=== PATIENT | female | born 1990 | race Hispanic/Latino ===

== ENCOUNTER 2022-05-18 12:36 | Emergency (ER) | payer MEDICAID ==
[~2022-05-18] VITALS: Ht 147.3 cm; Wt 58.1 kg
[~2022-05-18 12:36] MED LIST: METF-444 PO; METF-446 PO; METO10TA41 PO; ONDA-105 PO; PREN-154 PO
[2022-05-18 12:48] VITALS: BP 125/72
[2022-05-18 13:34] LABS: BASOPHILS % (AUTO) 0.5 % (0.0-5.0); EOSINOPHILS % (AUTO) 0.7 % (0.0-8.0); HEMATOCRIT 27.6 % (36-48); LYMPHOCYTES % (AUTO) 25.7 % (21.0-51.0); MEAN CORPUSCULAR HEMOGLOBIN 29.2 pg (27.0-33.0); MEAN CORPUSCULAR HGB CONC 34.1 g/dL (32.0-36.0); MEAN CORPUSCULAR VOLUME 85.7 fL (79-99); MONOCYTES % (AUTO) 5.5 % (3.0-13.0); NEUTROPHILS % (AUTO) 67.2 % (40.0-77.0); PLATELET COUNT (AUTO) 372 K/uL (130-400); RED BLOOD CELL COUNT(AUTO) 3.22 MIL/uL (4.00-5.50); RED CELL DISTRIBUTION WIDTH 13.8 % (11.0-15.5); WHITE BLOOD COUNT (AUTO) 10.1 K/uL (4.8-10.8)
[2022-05-18 14:04] LABS: CREATININE 1.9 mg/dL (0.5-1.5); POTASSIUM 4.7 mmol/L (3.5-5.1)
[2022-05-18 14:38] LABS: ALBUMIN 2.6 g/dL (3.5-5.0); TOTAL PROTEIN, SERUM 7.7 g/dL (6.0-8.3)
== END 2022-05-18 16:53 | disposition home or self-care (01) ==
LOC: EDH 12:36
DX: Z34.92 Encounter for supervision of normal pregnancy, unspecified, second trimester (principal); Z3A.19 19 weeks gestation of pregnancy; E11.9 Type 2 diabetes mellitus without complications; Z79.84 Long term (current) use of oral hypoglycemic drugs; Z79.899 Other long term (current) drug therapy; Z90.49 Acquired absence of other specified parts of digestive tract
CPT/HCPCS: 36415; 80053; 84702; 85025

== ENCOUNTER 2024-01-17 04:35 | Emergency (ER) | payer MEDICAID ==
[~2024-01-17 04:35] MED LIST changes: -METF-444 PO; -METF-446 PO; -METO10TA41 PO; -ONDA-105 PO; +ONDA-243 PO; -PREN-154 PO
[2024-01-17] MEDS: LACTATED RINGERS 1000ML 1,000 ML IV ONE (04:50)
[2024-01-17] MEDS: morPHINE 4 MG SYG IVP ONE (04:50)
[2024-01-17] MEDS: ONDANSETRON 4MG INJ IVP ONE (04:50)
[2024-01-17] MEDS: LIDOCAINE HCL 2% VISCOUS 15 ML UDCUP PO ONE (04:51)
[2024-01-17] MEDS: DICYCLOMINE HCL 10 MG/5 ML ML PO ONE (04:51)
[2024-01-17] MEDS: MAG/ALUM/SIMETH 30 ML UDCUP PO ONE (04:51)
[2024-01-17 04:55] LABS: BASOPHILS # (AUTO) 0.06 K/uL (0.00-0.20); BASOPHILS % (AUTO) 0.6 % (0.0-5.0); EOSINOPHILS % (AUTO) 3.2 % (0.0-8.0); HEMATOCRIT 32.9 % (36-48); IMMATURE GRANULOCYTE ABSOLUTE 0.02 K/uL (0-1); LYMPHOCYTES # (AUTO) 1.5 K/uL (1.0-4.8); LYMPHOCYTES % (AUTO) 16.5 % (21.0-51.0); MEAN CORPUSCULAR HEMOGLOBIN 28.6 pg (27.0-33.0); MEAN CORPUSCULAR HGB CONC 34.7 g/dL (32.0-36.0); MEAN CORPUSCULAR VOLUME 82.5 fL (79-99); MONOCYTES # (AUTO) 0.5 K/uL (0.1-1.0); MONOCYTES % (AUTO) 4.8 % (3.0-13.0); NEUTROPHILS % (AUTO) 74.7 % (40.0-77.0); PLATELET COUNT (AUTO) 282 K/uL (130-400); RED BLOOD CELL COUNT(AUTO) 3.99 MIL/uL (4.00-5.50); RED CELL DISTRIBUTION WIDTH 12.4 % (11.0-15.5); WHITE BLOOD COUNT (AUTO) 9.3 K/uL (4.8-10.8)
[2024-01-17 05:12] LABS: CREATININE 2.7 mg/dL (0.5-1.0); POTASSIUM 4.5 mmol/L (3.5-5.1)
[2024-01-17 05:16] LABS: ALBUMIN 3.9 g/dL (3.5-5.0); BILIRUBIN,TOTAL 0.4 mg/dL (0.2-1.0); TOTAL PROTEIN, SERUM 7.9 g/dL (6.0-8.3)
[2024-01-17] MEDS ORDERED: MEPERIDINE-PF 50 MG/ML SYG SQ PRN (05:30)
[2024-01-17] MEDS ORDERED: LACTATED RINGERS 1000ML 1,000 ML IV SCH (05:30)
[2024-01-17] MEDS ORDERED: PROMETHAZINE HCL 25 MG/ML 1ML AMPULE IM PRN (05:30)
[2024-01-17] MEDS ORDERED: MEPERIDINE-PF 75 MG/ML SYG IM PRN (05:30)
[2024-01-17] MEDS: PANTOPRAZOLE 40 MG/VIAL IVP ONE (06:06)
[2024-01-17] MEDS: PANTOPRAZOLE 40 MG/VIAL ONE (06:09)
[2024-01-17] MEDS: PROMETHAZINE HCL 25 MG/ML 1ML AMPULE IM ONE (06:31)
[2024-01-17] MEDS: metoCLOPRAmide 10 MG/2 ML VIAL IVP ONE (08:13)
[2024-01-17 08:30] LABS: APPEARANCE,URINE CLEAR (CLEAR); BILIRUBIN,URINE NEGATIVE (NEGATIVE); COLOR,URINE COLORLESS (YELLOW); GLUCOSE, URINE (UA) NEGATIVE (NEGATIVE); KETONES,URINE NEGATIVE (NEGATIVE); LEUKOCYTE ESTERASE ,URINE NEGATIVE Leu/uL (NEGATIVE); NITRATE,URINE NEGATIVE (NEGATIVE); OCCULT BLOOD,URINE SMALL (NEGATIVE); PROTEIN,URINE 300 mg/dL (NEGATIVE); UROBILINOGEN,URINE 0.2 mg/dL (0.2-1.0)
[2024-01-17 08:37] LABS: ADD UA MICROSCOPIC YES
[2024-01-17 08:38] LABS: AMPHET/METH SCREEN,URINE NEGATIVE (NEGATIVE); BARBITURATE SCREEN, URINE NEGATIVE (NEGATIVE); BENZODIAZEPINES SCREEN,URINE NEGATIVE (NEGATIVE); CANNABINOID SCREEN,URINE POSITIVE (NEGATIVE); COCAINE SCREEN,URINE NEGATIVE (NEGATIVE); OPIATE SCREEN,URINE NEGATIVE (NEGATIVE); PHENCYCLIDINE SCREEN,URINE NEGATIVE (NEGATIVE)
[2024-01-17 08:39] LABS: BACTERIA,URINE RARE /HPF (None Seen); MUCUS,URINE RARE LPF (None Seen); SQUAMOUS EPITHELIAL CELL,UR RARE /HPF (0-2)
[2024-01-17] MEDS ORDERED: ONDA22I PO (09:54)
[2024-01-17] MEDS ORDERED: PANT20TA PO (09:54)
[2024-01-17 10:05] VITALS: BP 114/72; PULSE 88; RESP 19; TEMP 98.2; O2SAT 99
== END 2024-01-17 10:06 | disposition home or self-care (01) ==
LOC: EDH 04:35
DX: R11.2 Nausea with vomiting, unspecified (principal); R19.7 Diarrhea, unspecified; R10.9 Unspecified abdominal pain; R42 Dizziness and giddiness; I12.9 Hypertensive chronic kidney disease with stage 1 through stage 4 chronic kidney disease, or unspecified chronic kidney disease; E11.22 Type 2 diabetes mellitus with diabetic chronic kidney disease; N18.9 Chronic kidney disease, unspecified; E11.43 Type 2 diabetes mellitus with diabetic autonomic (poly)neuropathy; K31.84 Gastroparesis; G89.4 Chronic pain syndrome; E86.0 Dehydration
CPT/HCPCS: 99285; 96374; 96375; 96361; 71045; 82150; 84484; 80053; 80305; 83690; 85025; 87086; 81025; 36415; 96372; 81001; J2550; J2405; J2270 ×2; J2470; J2765

== ENCOUNTER 2024-01-17 16:45 | Emergency (ER) | payer MEDICAID ==
[~2024-01-17] VITALS: Ht 144.8 cm; Wt 55.3 kg
[~2024-01-17 16:45] MED LIST changes: +ONDA22I PO; +PANT20TA PO
[2024-01-17 18:01] LABS: BASOPHILS # (AUTO) 0.04 K/uL (0.00-0.20); BASOPHILS % (AUTO) 0.6 % (0.0-5.0); EOSINOPHILS # (AUTO) 0.25 K/uL (0.00-0.70); EOSINOPHILS % (AUTO) 3.6 % (0.0-8.0); HEMATOCRIT 32.1 % (36-48); IMMATURE GRANULOCYTE ABSOLUTE 0.02 K/uL (0-1); LYMPHOCYTES # (AUTO) 1.4 K/uL (1.0-4.8); MEAN CORPUSCULAR HEMOGLOBIN 28.7 pg (27.0-33.0); MEAN CORPUSCULAR HGB CONC 34.3 g/dL (32.0-36.0); MEAN CORPUSCULAR VOLUME 83.8 fL (79-99); MONOCYTES # (AUTO) 0.4 K/uL (0.1-1.0); MONOCYTES % (AUTO) 5.7 % (3.0-13.0); NEUTROPHILS # (AUTO) 4.9 K/uL (1.8-7.7); NEUTROPHILS % (AUTO) 69.8 % (40.0-77.0); PLATELET COUNT (AUTO) 273 K/uL (130-400); RED BLOOD CELL COUNT(AUTO) 3.83 MIL/uL (4.00-5.50); RED CELL DISTRIBUTION WIDTH 12.7 % (11.0-15.5)
[2024-01-17] MEDS: ONDANSETRON 4MG INJ IVP ONE (18:12)
[2024-01-17] MEDS: morPHINE 2 MG SYG IVP ONE (18:12)
[2024-01-17] MEDS: 0.9%NACL 1000ML 1,000 ML IV ONE (18:13)
[2024-01-17 18:14] LABS: CREATININE 2.8 mg/dL (0.5-1.0); POTASSIUM 4.8 mmol/L (3.5-5.1)
[2024-01-17 18:54] VITALS: BP 147/89; PULSE 94; RESP 18; TEMP 98.3; O2SAT 99
== END 2024-01-17 18:55 | disposition home or self-care (01) ==
LOC: EDH 16:45
DX: A08.4 Viral intestinal infection, unspecified (principal); F12.10 Cannabis abuse, uncomplicated; G89.4 Chronic pain syndrome; E11.22 Type 2 diabetes mellitus with diabetic chronic kidney disease; N18.9 Chronic kidney disease, unspecified; R11.2 Nausea with vomiting, unspecified; E11.43 Type 2 diabetes mellitus with diabetic autonomic (poly)neuropathy; Z79.899 Other long term (current) drug therapy
CPT/HCPCS: 99284; 96374; 96361; 96375; 80048; 85025; 36415; J2270; J7030; J2405

== ENCOUNTER 2024-03-05 16:35 | Emergency (ER) | payer MEDICAID ==
[~2024-03-05] VITALS: Ht 152.4 cm; Wt 54.4 kg
[2024-03-05 17:02] LABS: BASOPHILS # (AUTO) 0.08 K/uL (0.00-0.20); BASOPHILS % (AUTO) 0.6 % (0.0-5.0); EOSINOPHILS # (AUTO) 0.03 K/uL (0.00-0.70); EOSINOPHILS % (AUTO) 0.2 % (0.0-8.0); HEMATOCRIT 34.6 % (36-48); IMMATURE GRANULOCYTE ABSOLUTE 0.03 K/uL (0-1); LYMPHOCYTES # (AUTO) 2.1 K/uL (1.0-4.8); LYMPHOCYTES % (AUTO) 15.3 % (21.0-51.0); MEAN CORPUSCULAR HEMOGLOBIN 28.8 pg (27.0-33.0); MEAN CORPUSCULAR VOLUME 82.4 fL (79-99); MONOCYTES # (AUTO) 0.6 K/uL (0.1-1.0); MONOCYTES % (AUTO) 4.3 % (3.0-13.0); NEUTROPHILS # (AUTO) 10.9 K/uL (1.8-7.7); NEUTROPHILS % (AUTO) 79.4 % (40.0-77.0); PLATELET COUNT (AUTO) 403 K/uL (130-400); RED CELL DISTRIBUTION WIDTH 12.5 % (11.0-15.5); WHITE BLOOD COUNT (AUTO) 13.7 K/uL (4.8-10.8)
[2024-03-05 17:10] LABS: CREATININE 3.2 mg/dL (0.5-1.0); POTASSIUM 4.3 mmol/L (3.5-5.1)
[2024-03-05] MEDS: ondanSETRON 4MG INJ IVP STA (17:33)
[2024-03-05] MEDS: morPHINE 2 MG SYG IVP STA ×2 (17:33→20:57)
[2024-03-05] MEDS: PANTOPrazole 40 MG/VIAL IVP ONE (17:34)
[2024-03-05] MEDS: 0.9%NACL 1000ML 1,000 ML IV STA (18:27)
--- NOTE | 2024-03-05 18:56 | HMCIMG ---
CT ABDOMEN/PELVIS W/O CONTRAST HISTORY: Nausea and vomiting COMPARISON: 08/27/2023 TECHNIQUE: Multiple sequential axial images of the abdomen and pelvis were obtained from the dome of the diaphragm through symphysis pubis. Patient was not given contrast through intravenous route. Oral contrast was not given. FINDINGS: No pleural effusion is seen bilaterally. There is no evidence of parenchymal disease or pulmonary nodule of the visualized lower lungs. Degenerative changes of the thoracolumbar spine are present. The heart is not enlarged. Postcholecystectomy changes are seen. The liver, spleen, adrenal glands and pancreas are unremarkable. There is no evidence of hydronephrosis bilaterally. 3 mm left renal pelvic stone is seen. Subcentimeter renal cysts are seen. Fecal material is seen in the colon. There are normal size retroperitoneal and mesenteric lymph nodes. No ascites is seen. No CT evidence of acute appendicitis is seen. Clinical correlation is recommended. Pelvic sidewalls are symmetric bilaterally. Bladder is poorly distended. IMPRESSION: 1. 3 mm left renal pelvic stone. No hydronephrosis is seen. No ascites. CT was performed with one or more following dose reduction techniques: automated exposure control, adjustment of the mA and kv according to patient's size, or use of a iterative reconstruction technique.
--- NOTE | 2024-03-05 19:20 | ERN ---
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 Denies having any fever, cough, chest pain, or headache. Unknown her LMP. Allergies: Coded Allergies: No Known Allergies (Unverified Allergy, Unknown, 04/24/22) Home Meds Active Scripts Ondansetron (Ondansetron Odt) 4 Mg Tab.rapdis, 4 MG PO Q6HPRN PRN for nausea, #16 TAB 0 Refills Prov:TONIE KAHN NP 03/05/24 Pantoprazole Sodium (Protonix) 20 Mg Tablet.dr, 20 MG PO DAILY for 7 Days, #7 TAB Prov:ANASTACIO ANDERS MD 01/17/24 Ondansetron HCl (Zofran) 4 Mg/2 Ml Inj, 4 MG PO BID for Nausea, vomiting for 7 Days, #14 ML Prov:ANASTACIO ANDERS MD 01/17/24 Ondansetron (Ondansetron Odt) 4 Mg Tab.rapdis, 4 MG PO Q6HPRN for nausea, #15 TAB Prov:BHAVYA VILLAR MD 12/25/23 Past Medical History Past Medical History: Diabetes-Type II, Other Additional Past Medical Hx: Guillain [place], Surgical History: Cholecystectomy, None, Surgical History Other: CATARACT SX LEFT EYE 12/24/23 Family History: Negative Social History: Negative History: Not Applicable : 4 Para: 2 Aborts: 2 Review of System Dictation Constitutional: Negative for fever,chills, and weight loss Eyes: Negative for injury, pain,redness, and discharge ENT: Negative for injury,pain or swelling Cardiovascular: Negative for chest pain, palpitations, and edema Respiratory: Negative for shortness of breath, cough, and wheezing, Abdomen/GI: Complaining for abdominal pain, nausea, vomiting, diarrhea, and no constipation Back: Negative for injury and pain : Negative for injury, bleeding and discharge MS/Extremity: Negative for injury and deformity Skin: Negative for rash, and discoloration Neuro: Negative for headache, weakness, numbness, tingling, and seizure Psych: Negative for suicide ideation, homicidal ideation, and hallucinations Review of Systems: was completed Initial Vital Sign VS Vital Signs Date Time Temp Pulse Resp B/P (MAP) Pulse Ox O2 Delivery O2 Flow Rate FiO2 03/05/24 16:38 98.2 96 18 143/82 98 03/05/24 16:58 Room Air* 0 21 Physical Exam Dictation General: awake, alert, NAD Head/Face: Normocephalic, atraumatic Eyes: PERRL, EOMI, vision at baseline ENT: oral cavity clear, TMs clear, no signs of infection Neck: Trachea midline, supple, no nuchal rigidity Cardiovascular: RRR, normal S1/S2, No MRGs, no JVD Respiratory: CTAB, no respiratory distress, No rales or wheezes Abdomen: Soft, non-tender, non-distended, normal bowel sounds, no guarding or rebound. 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 Denies having any fever, cough, chest pain, or headache. Unknown her LMP. CBC shows mild leukocytosis of 13, no anemia, thrombocythemia. Chemistry shows mild elevation he had gotten a 3.2, however they seem to be patient's baseline based on previous visit. Hyperglycemia to 212. Anion and gap is 13, low suspicion for DKA. CT scan of the abdomen shows 3 mm left renal pelvic stone. Discussed findings with patient. Patient states she does not want to go home, educated that these are all chronic findings since she is to follow up outpatient. ER MD went to assess patient, patient is being route and cussing at ER MD. states that yesterday she went to [facility] where they gave her Dilaudid for the pain. Educated patient more than likely her symptoms are related to her gastroparesis. Educated to follow up with her PCP in 1-2 days and return to the ER symptoms worsen. Differential diagnosis: Gastroparesis, gastroenteritis, Rationale: Tests considered and ordered secondary to shared decision making include: Previous outside records reviewed: Old ER visits. Risk of complication and/or morbidity or mortality of patient management: None Medications-Per medication reconciliation Need for hospitalization: Patient does not meet criteria for hospitalization. Need for emergency major/minor surgery: No There are no social concerns with this patient. Prescription drug management Prescriptions will include symptomatic care Patient's prior external medical records from other ER visits were reviewed by me as indicated. Prior testing and results from previous visits were reviewed. Prior tests were taken into account with medical decision making and resource utilization, independent historian/historians were used to obtain complete medical history. I independently interpreted the test that were performed, results were reviewed by me and considered findings on radiology if ordered. Medical management and examination interpretation discussions were had by me with other qualified healthcare professionals as indicated for the patient's care. DX & DISP Disposition: Discharge Departure Impression: Primary Impression: Acute vomiting Additional Impression: Chronic kidney disease Condition: Stable Scripts Ondansetron (Ondansetron Odt) 4 Mg Tab.rapdis 4 MG PO Q6HPRN PRN for nausea, #16 TAB 0 Refills Prov: TONIE KAHN NP 03/05/24 Additional Instructions: Please follow up with your PCP. Return to the ER symptoms worsen. Referrals: KENY FOLEY (PCP) Time of Disposition: 20:15 I have reviewed the case, and I agree with, Diagnosis and Plan I performed this substantive portion of this visit. I have reviewed and personally made and approve the management plan that is documented in the note by myself or the RAJAT. I acknowledge full responsibility for the patient's management plan. TONIE KAHN NP Mar 05, 2024 19:20 KOMAL SUAREZ MD Mar 15, 2024 10:55
[2024-03-05] MEDS: PROMETHAZINE HCL 6.25 MG/5 ML PO SCH (19:50)
[2024-03-05 19:59] VITALS: BP 115/66; PULSE 109; RESP 18; TEMP 98.5; O2SAT 99
[2024-03-05] MEDS ORDERED: ONDA-243 PO (20:15)
== END 2024-03-05 21:10 | disposition home or self-care (01) ==
LOC: EDH 16:35
DX: E11.22 Type 2 diabetes mellitus with diabetic chronic kidney disease (principal); N18.9 Chronic kidney disease, unspecified; R10.2 Pelvic and perineal pain; Z79.899 Other long term (current) drug therapy; Z90.49 Acquired absence of other specified parts of digestive tract; Z98.890 Other specified postprocedural states
CPT/HCPCS: 99285; 74176; 96374; 96375; 96361; 84484; 80048; 84702; 85025; 36415; 96376; J2270 ×2; J7030; J2405; J2470; Q0169

== ENCOUNTER 2024-04-20 07:42 | Emergency (ER) | payer MEDICAID ==
[~2024-04-20] VITALS: Ht 149.9 cm; Wt 57.2 kg
[~2024-04-20 07:42] MED LIST changes: +FINE10TA PO; +METO5 PO; -ONDA22I PO; -PANT20TA PO
--- NOTE | 2024-04-20 08:24 | EKG ---
[facility] Test Date: 2024-04-20 Test Time: 08:22:37 Pat Name: FRANDY HODGE Department: ED Room: Gender: F Manager Rental: 1378 : 1990 Requested By: DUC FAULKNER Order Number: [id number] Reading MD: Pedro Luis Marc Measurements Intervals [place] Rate: 93 P: 69 [place]: 130 QRS: 26 QRSD: 92 T: 126 QT: 356 QTc: 444 Interpretive Statements Sinus rhythm Nonspecific T abnormalities, lateral leads Compared to ECG 04/18/2024 10:03:47 No significant changes Electronically Signed On 04-20-2024 21:09:06 FINISH FILER by Pedro Luis Marc Please click the below link to view image of tracing.
--- NOTE | 2024-04-20 08:29 | ERN ---
General Chief Complaint: Abdominal Pain Stated Complaint: ABDOMINAL PAIN Time Seen by MD: 07:54 Source: patient History of Present Illness Initial Comments Patient is a 33-year-old female coming in to be evaluated for multiple complaints. Patient states he has a history of Guillain-[place] and presents frequently with the abdominal discomfort. She states that the only thing in the helps her with her nauseousness is Phenergan. Patient also states that she has been having generalized abdominal and muscle pain. No fever or chills. Allergies: Coded Allergies: No Known Allergies (Unverified Allergy, Unknown, 04/24/22) Home Meds Active Scripts Ondansetron (Ondansetron Odt) 4 Mg Tab.rapdis, 4 MG PO Q6HPRN PRN for nausea, #16 TAB 0 Refills Prov:TONIE KAHN NP 03/05/24 Reported Medications Finerenone (Kerendia) 10 Mg Tablet, 1 TAB PO DAILY for 30 Days, #30 TAB 0 Refills 04/18/24 Metoclopramide HCl (Reglan) 5 Mg Tab, 5 MG PO BIDAC, TAB 04/18/24 Discontinued Scripts Pantoprazole Sodium (Protonix) 20 Mg Tablet.dr, 20 MG PO DAILY for 7 Days, #7 TAB Prov:ANASTACIO ANDERS MD 01/17/24 Ondansetron HCl (Zofran) 4 Mg/2 Ml Inj, 4 MG PO BID for Nausea, vomiting for 7 Days, #14 ML Prov:ANASTACIO ANDERS MD 01/17/24 Ondansetron (Ondansetron Odt) 4 Mg Tab.rapdis, 4 MG PO Q6HPRN for nausea, #15 TAB Prov:BHAVYA VILLAR MD 12/25/23 Past Medical History Past Medical History: Diabetes-Type II, Other Medical History Other: GASTROPARESIS, GUIELLEN BARRE, CATARAC Past Surgical History: Tonsillectomy, Cholecystectomy, Surgical History Other: CATARAC SURGERY Family History Family History: Negative Social History Social History: Negative Female( History) History: Not Applicable : 4 Para: 2 Aborts: 2 ROS Dictation CONSTITUTIONAL: No chills, no fever, no weakness, no diaphoresis, no malaise. HEAD/FACE: No signs of trauma. EENT: No eye pain, no blurred vision, no tearing, no double vision, no ear pain, no ear discharge, no nose pain, no nasal congestion, no throat pain, no throat swelling, no mouth pain. RESPIRATORY: No cough, no orthopnea, no SOB, no stridor, no wheezing. CARDIOVASCULAR: No chest pain, no edema, no palpitations, no syncope. GASTROINTESTINAL/ABDOMINAL: No abdominal pain, no constipation, no diarrhea, nausea, vomiting. GENITOURINARY: No abnormal discharge, no dysuria, no frequent urination, no hematuria. No complaints of pain in the genitals. MUSCULOSKELETAL: No back pain, no gout, no joint pain, no joint swelling, no muscle pain, no muscle stiffness, no neck pain. INTEGUMENTARY: No change in color, no change in hair/nails, no dryness, no lesion, no lumps, no rash. NEUROLOGICAL/PSYCH: No anxiety, not depressed, no emotional problem, no headache, no numbness, no pre-existing deficit, no history of seizures, no tremors, no weakness. HEMATOLOGIC/LYMPHATIC: Not anemic, no history of blood clots, no apparent bleeding, no bruising, glands not swollen. All Systems Negative, Except as Noted. Physical Exam Physical Exam Dictation VITAL SIGNS: Reviewed. GENERAL APPEARANCE: Alert, oriented x3, no acute distress, obese. HEAD AND FACE: Non-traumatic. EYES: PERRL, pink conjunctivas, eyelid no trauma, anterior chamber clear. EARS: Pinnas intact and no signs of trauma or erythema. Ear canals clear and no discharge. TMs no erythema. NOSE: No discharge, no bleeding. OROPHARYNX: Mouth normal, teeth no caries, tongue pink. Pharynx clear, no erythema. Tonsils no exudates, no abscesses noted. Mucous membrane moist. NECK: Supple, non-tender, no thyromegaly, no masses, no JVD, no bruits. BREAST: Deferred. CHEST: No tenderness, no crepitus, no paradoxical movement, no retractions. LUNGS: Clear, well-ventilated, symmetric, no rales, no wheezing, no rhonchi, no stridor, good breath sounds bilaterally. HEART: Regular rate, regular rhythm, no murmur, no gallops. VASCULAR: No peripheral edema. ABDOMEN: Soft, positive bowel sounds, nondistended, no guarding, nontender, no rebound, no masses no hepatomegaly, no splenomegaly, no Reece's sign, no hernias. RECTAL: Deferred. GENITAL: Deferred. NEUROLOGICAL: Normal speech, gross motor function intact, gross sensory function intact. MUSCULOSKELETAL: Neck nontender, full range of motion, back nontender, full range of motion. EXTREMITIES: Nontender, full range of motion. SKIN: Color pink, dry, no turgor, no rash, no lacerations, no abrasions, no contusions. LYMPHATICS: Deferred. Results Laboratory and Microbiology Lab and Micro Result Laboratory Tests Test 04/20/24 08:13 04/20/24 09:28 Urine Color COLORLESS (YELLOW) Urine Appearance CLEAR (CLEAR) Urine pH 8.0 (5.0-8.0) Urine Specific [place] 1.010 (1.001-1.031) Urine Protein 300 mg/dL (NEGATIVE) H Urine Glucose (UA) 50 mg/dL (NEGATIVE) H Urine Ketones NEGATIVE mg/dL (NEGATIVE) Urine Occult Blood MODERATE (NEGATIVE) H Urine Nitrate NEGATIVE (NEGATIVE) Urine Bilirubin NEGATIVE mg/dL (NEGATIVE) Urine Urobilinogen 0.2 mg/dL (0.2-1.0) Urine Leukocyte Esterase NEGATIVE Jeannie/uL Urine RBC 51-100 /HPF (0-1) H Urine WBC 2-5 /HPF (0-1) H Urine Squamous Epithelial Cells RARE /HPF (0-2) Urine Bacteria RARE /HPF (None Seen) Urine HCG, Qualitative NEGATIVE (NEGATIVE) Urine Opiates Screen NEGATIVE (NEGATIVE) Urine Barbiturates Screen NEGATIVE (NEGATIVE) Urine Phencyclidine Screen NEGATIVE (NEGATIVE) Urine Amphetamines Screen NEGATIVE (NEGATIVE) Urine Benzodiazepines Screen NEGATIVE (NEGATIVE) Urine Cocaine Screen NEGATIVE (NEGATIVE) Urine Marijuana (THC) Screen POSITIVE (NEGATIVE) H White Blood Count 9.1 K/uL (4.8-10.8) Red Blood Count 3.38 MIL/uL (4.00-5.50) L Hemoglobin 9.8 g/dL (12.0-16.0) L Hematocrit 28.5 % (36-48) L Mean Corpuscular Volume 84.3 fL (79-99) Mean Corpuscular Hemoglobin 29.0 pg (27.0-33.0) Mean Corpuscular Hemoglobin Concent 34.4 g/dL (32.0-36.0) Red Cell Distribution Width 12.4 % (11.0-15.5) Platelet Count 254 K/uL (130-400) Mean Platelet Volume 10.6 fL (7.5-10.5) H Immature Granulocyte % (Auto) 0.4 % (0-1) Neutrophils (%) (Auto) 78.1 % (40.0-77.0) H Lymphocytes (%) (Auto) 15.9 % (21.0-51.0) L Monocytes (%) (Auto) 3.7 % (3.0-13.0) Eosinophils (%) (Auto) 1.0 % (0.0-8.0) Basophils (%) (Auto) 0.9 % (0.0-5.0) Neutrophils # (Auto) 7.1 K/uL (1.8-7.7) Lymphocytes # (Auto) 1.5 K/uL (1.0-4.8) Monocytes # (Auto) 0.3 K/uL (0.1-1.0) Eosinophils # (Auto) 0.09 K/uL (0.00-0.70) Basophils # (Auto) 0.08 K/uL (0.00-0.20) Absolute Immature Granulocyte (auto 0.04 K/uL (0-1) Nucleated Red Blood Cells 0.0 % (0.0-0.19) Sodium Level 139 mmol/L (136-145) Potassium Level 3.7 mmol/L (3.5-5.1) Chloride Level 104 mmol/L (101-111) Carbon Dioxide Level 25 mmol/L (21-32) Blood Urea Nitrogen 38 mg/dL (7-18) H Creatinine 2.9 mg/dL (0.5-1.0) H Glomerular Filtration Rate Calc 21 mL/min (>90) Random Glucose 131 mg/dL (70-105) H Total Calcium 9.0 mg/dL (8.5-10.1) Total Bilirubin 0.3 mg/dL (0.2-1.0) Aspartate Amino Transf (AST/SGOT) 18 U/L (10-37) Alanine Aminotransferase (ALT/SGPT) 17 U/L (12-78) Alkaline Phosphatase 62 U/L (50-136) Total Creatine Kinase 191 U/L (21-232) Troponin I High Sensitivity 7 ng/L (4-50) Total Protein 7.9 g/dL (6.0-8.3) Albumin 3.9 g/dL (3.5-5.0) Lipase 97 U/L (16-77) H Labs Reviewed?: Yes EKG/XRAY/US/CT/MRI EKG Comment 04/20/2024 time 8:22 a.m. Ventricular rate [address] wave elevation or depression VT 130 MDM MDM: Differential diagnosis: Cannabis abuse, nausea and vomiting, chronic kidney disease Patient is a 33-year-old female coming in to be evaluated for abdominal discomfort nausea and vomiting. Upon evaluation laboratory workup positive for elevated creatinine. But the patient does have a history of CKD. Laboratory workup also positive for cannabis abuse. Patient will be discharged with a diagnosis of cannabis abuse and nausea and vomiting. ED Course Orders Procedure Category Date Status Time Cbc With Differential LAB 04/20/24 Complete 08:05 Comprehensive LAB 04/20/24 Complete Metabolic Panel 08:05 Troponin I High LAB 04/20/24 Complete Sensitivity 08:05 ,Urine Test LAB 04/20/24 Complete 08:05 Urinalysis Profile LAB 04/20/24 Complete 08:05 12 Lead Ekg Tracing- EKG 04/20/24 Complete Technical 08:05 Creatine Kinase, Total LAB 04/20/24 Complete 08:05 Lipase LAB 04/20/24 Complete 08:05 Drug Screen Urine LAB 04/20/24 Complete 08:05 Pantoprazole 40mg Inj PHA 04/20/24 Complete (Protonix 40mg Inj 09:00 Ondansetron 4mg Inj PHA 04/20/24 Complete (Zofran 4mg Inj) 09:00 Haloperidol Inj PHA 04/20/24 Complete (Haldol Inj) 08:31 Current Medications Medications (Trade) Dose Ordered Sig/Italo Route PRN Reason Start Time Stop Time Status Last Admin Dose Admin Haloperidol Lactate (Haldol Inj) 2.5 mg Q4H STAT IV 04/20/24 08:31 04/20/24 08:32 DC 04/20/24 08:48 Ondansetron HCl (zoFRAN 4MG INJ) 4 mg ONCE ONCE IVP 04/20/24 09:00 04/20/24 09:01 DC 04/20/24 08:48 Pantoprazole Sodium (PROTonix 40MG INJ) 40 mg ONCE ONCE IVP 04/20/24 09:00 04/20/24 09:01 DC 04/20/24 08:48 Vital Signs Date Time Temp Pulse Resp B/P (MAP) Pulse Ox O2 Delivery O2 Flow Rate FiO2 04/20/24 09:15 99.5 93 18 179/76 95 Room Air* 0 21 04/20/24 07:44 99.7 90 20 145/82 99 Room Air DX & DISP Disposition: Discharge Departure Impression: Primary Impression: Chronic kidney disease Additional Impressions: Cannabis abuse, Nausea & vomiting Condition: Stable Additional Instructions: FOLLOW-UP WITH PRIMARY CARE PROVIDER IN 1 TO 2 DAYS. TAKE MEDICATIONS DIRECTED HERE IN THE EMERGENCY ROOM. OKAY TO CONTINUE HOME MEDICATIONS UNLESS OTHERWISE DISCUSSED DURING YOUR VISIT IN THE EMERGENCY ROOM TODAY. RETURN TO YOUR NEAREST EMERGENCY ROOM IF SYMPTOMS WORSEN OR IF THERE IS NO IMPROVEMENT. CALL 911 IF YOU NEED IMMEDIATE ASSISTANCE. TAKE TYLENOL [id number] NEEDED AND IF NO CONTRAINDICATIONS ARE PRESENT. INCREASE ORAL HYDRATION. A WOUND CULTURE OR URINE CULTURE WAS ORDERED HERE IN THE EMERGENCY ROOM DEPARTMENT PLEASE FOLLOW-UP WITH PRIMARY CARE PROVIDER AND ADVISE THEM TO GET REPEAT PORTS FROM OUR FACILITY. IF YOU HAD ANY ALIDA WRAP/SPLINTS THAT WERE APPLIED HERE, PLEASE DO NOT REMOVE THEM UNTIL YOU SEE YOUR PRIMARY CARE OR SPECIALTY. Referrals: Referrals: MAICO POLLACK (PCP) Time of Disposition: 10:21 DUC FAULKNER MD Apr 20, 2024 08:29
[2024-04-20] MEDS: ondanSETRON 4MG INJ IVP ONE (08:48)
[2024-04-20] MEDS: PANTOPrazole 40 MG/VIAL IVP ONE (08:48)
[2024-04-20] MEDS: HALOPERIDOL INJ 5 MG/ML VIAL IV STA (08:48)
[2024-04-20 09:03] LABS: APPEARANCE,URINE CLEAR (CLEAR); BILIRUBIN,URINE NEGATIVE (NEGATIVE); COLOR,URINE COLORLESS (YELLOW); GLUCOSE, URINE (UA) 50 mg/dL (NEGATIVE); KETONES,URINE NEGATIVE (NEGATIVE); LEUKOCYTE ESTERASE ,URINE NEGATIVE Leu/uL (NEGATIVE); NITRATE,URINE NEGATIVE (NEGATIVE); OCCULT BLOOD,URINE MODERATE (NEGATIVE); PROTEIN,URINE 300 mg/dL (NEGATIVE); UROBILINOGEN,URINE 0.2 mg/dL (0.2-1.0)
[2024-04-20 09:04] LABS: ADD UA MICROSCOPIC YES; HCG,QUALITATIVE URINE NEGATIVE (NEGATIVE)
[2024-04-20 09:06] LABS: AMPHET/METH SCREEN,URINE NEGATIVE (NEGATIVE); BACTERIA,URINE RARE /HPF (None Seen); BARBITURATE SCREEN, URINE NEGATIVE (NEGATIVE); BENZODIAZEPINES SCREEN,URINE NEGATIVE (NEGATIVE); CANNABINOID SCREEN,URINE POSITIVE (NEGATIVE); COCAINE SCREEN,URINE NEGATIVE (NEGATIVE); OPIATE SCREEN,URINE NEGATIVE (NEGATIVE); PHENCYCLIDINE SCREEN,URINE NEGATIVE (NEGATIVE); RBC,URINE 51-100 /HPF (0-1); SQUAMOUS EPITHELIAL CELL,UR RARE /HPF (0-2)
[2024-04-20 09:51] LABS: BASOPHILS # (AUTO) 0.08 K/uL (0.00-0.20); BASOPHILS % (AUTO) 0.9 % (0.0-5.0); EOSINOPHILS # (AUTO) 0.09 K/uL (0.00-0.70); HEMATOCRIT 28.5 % (36-48); IMMATURE GRANULOCYTE ABSOLUTE 0.04 K/uL (0-1); LYMPHOCYTES # (AUTO) 1.5 K/uL (1.0-4.8); LYMPHOCYTES % (AUTO) 15.9 % (21.0-51.0); MEAN CORPUSCULAR HGB CONC 34.4 g/dL (32.0-36.0); MEAN CORPUSCULAR VOLUME 84.3 fL (79-99); MONOCYTES # (AUTO) 0.3 K/uL (0.1-1.0); MONOCYTES % (AUTO) 3.7 % (3.0-13.0); NEUTROPHILS # (AUTO) 7.1 K/uL (1.8-7.7); NEUTROPHILS % (AUTO) 78.1 % (40.0-77.0); PLATELET COUNT (AUTO) 254 K/uL (130-400); RED BLOOD CELL COUNT(AUTO) 3.38 MIL/uL (4.00-5.50); RED CELL DISTRIBUTION WIDTH 12.4 % (11.0-15.5); WHITE BLOOD COUNT (AUTO) 9.1 K/uL (4.8-10.8)
[2024-04-20 10:09] LABS: CREATININE 2.9 mg/dL (0.5-1.0); POTASSIUM 3.7 mmol/L (3.5-5.1)
[2024-04-20 10:17] LABS: ALBUMIN 3.9 g/dL (3.5-5.0); BILIRUBIN,TOTAL 0.3 mg/dL (0.2-1.0); TOTAL PROTEIN, SERUM 7.9 g/dL (6.0-8.3)
[2024-04-20 10:25] VITALS: BP 130/72; PULSE 88; RESP 18; TEMP 98.9; O2SAT 99
== END 2024-04-20 10:34 | disposition home or self-care (01) ==
LOC: EDH 07:42
DX: E11.22 Type 2 diabetes mellitus with diabetic chronic kidney disease (principal); N18.9 Chronic kidney disease, unspecified; F12.10 Cannabis abuse, uncomplicated; R11.2 Nausea with vomiting, unspecified; K31.84 Gastroparesis; Z79.899 Other long term (current) drug therapy; Z90.49 Acquired absence of other specified parts of digestive tract; Z90.89 Acquired absence of other organs
CPT/HCPCS: 99284; 96374; 96375; 82550; 84484; 80053; 80305; 83690; 85025; 81001; 81025; 36415; 93005; J1630; J2405; J2470

== ENCOUNTER 2024-06-13 17:21 | Emergency (ER) | payer MEDICAID ==
[~2024-06-13] VITALS: Ht 147.3 cm; Wt 54.4 kg
[~2024-06-13 17:21] MED LIST changes: -FINE10TA PO
--- NOTE | 2024-06-13 17:24 | NUR ---
UA CUP PROVIDED
[2024-06-13 18:49] LABS: BASOPHILS # (AUTO) 0.08 K/uL (0.00-0.20); BASOPHILS % (AUTO) 1.2 % (0.0-5.0); EOSINOPHILS # (AUTO) 0.58 K/uL (0.00-0.70); EOSINOPHILS % (AUTO) 8.6 % (0.0-8.0); HEMATOCRIT 32.2 % (36-48); IMMATURE GRANULOCYTE ABSOLUTE 0.01 K/uL (0-1); LYMPHOCYTES # (AUTO) 2.3 K/uL (1.0-4.8); LYMPHOCYTES % (AUTO) 33.4 % (21.0-51.0); MEAN CORPUSCULAR HEMOGLOBIN 29.3 pg (27.0-33.0); MEAN CORPUSCULAR HGB CONC 33.2 g/dL (32.0-36.0); MEAN CORPUSCULAR VOLUME 88.2 fL (79-99); MONOCYTES # (AUTO) 0.4 K/uL (0.1-1.0); MONOCYTES % (AUTO) 6.2 % (3.0-13.0); NEUTROPHILS # (AUTO) 3.4 K/uL (1.8-7.7); NEUTROPHILS % (AUTO) 50.5 % (40.0-77.0); PLATELET COUNT (AUTO) 234 K/uL (130-400); RED BLOOD CELL COUNT(AUTO) 3.65 MIL/uL (4.00-5.50); RED CELL DISTRIBUTION WIDTH 13.9 % (11.0-15.5); WHITE BLOOD COUNT (AUTO) 6.7 K/uL (4.8-10.8)
[2024-06-13 19:01] LABS: APPEARANCE,URINE CLEAR (CLEAR); BILIRUBIN,URINE NEGATIVE (NEGATIVE); COLOR,URINE LIGHT-YELLOW (YELLOW); GLUCOSE, URINE (UA) NEGATIVE (NEGATIVE); KETONES,URINE NEGATIVE (NEGATIVE); LEUKOCYTE ESTERASE ,URINE 75 Leu/uL (NEGATIVE); NITRATE,URINE NEGATIVE (NEGATIVE); OCCULT BLOOD,URINE SMALL (NEGATIVE); PROTEIN,URINE 300 mg/dL (NEGATIVE); UROBILINOGEN,URINE 0.2 mg/dL (0.2-1.0)
[2024-06-13 19:03] LABS: ADD UA MICROSCOPIC YES
[2024-06-13 19:03] LABS: ALBUMIN 4.1 g/dL (3.5-5.0); BILIRUBIN,DIRECT 0.1 mg/dL (0.0-0.3); BILIRUBIN,TOTAL 0.3 mg/dL (0.2-1.0); CREATININE 2.5 mg/dL (0.5-1.0); POTASSIUM 5.5 mmol/L (3.5-5.1); TOTAL PROTEIN, SERUM 8.1 g/dL (6.0-8.3)
[2024-06-13 19:06] LABS: BACTERIA,URINE RARE /HPF (None Seen); SQUAMOUS EPITHELIAL CELL,UR RARE /HPF (0-2)
[2024-06-13] MEDS: DEXTROSE 50%-WATER 50 ML DISP.SYRIN IV ONE ×3 (19:39→22:14)
[2024-06-13] MEDS: kayEXALate 15GM/60ML PO NR (19:39)
--- NOTE | 2024-06-13 19:40 | NUR ---
BLOOD GLUC 117 PRIOR HYPERLAMIC PROTOCOL
[2024-06-13] MEDS: CALCIUM GLUC 1GM 1 GM in 0.9%NACL 100ML 100 ML IV ONE (19:41)
[2024-06-13] MEDS: INSULIN humuLIN R 100 UNIT/ML 3ML IV ONE (19:46)
[2024-06-13] MEDS: CALCIUM GLUC 1GM/10ML VIAL ONE (19:56)
[2024-06-13] MEDS: morPHINE 2 MG SYG IVP ONE (20:28)
[2024-06-13] MEDS: ondanSETRON 4MG INJ IVP ONE (20:28)
[2024-06-13] MEDS ORDERED: MACR100 PO (22:16)
--- NOTE | 2024-06-13 22:16 | ERN ---
General Chief Complaint: Multiple Complaints Stated Complaint: VOMITING , RT FLANK PAIN ONSET ONE WEEK Time Seen by MD: 18:04 Time Seen by Midlevel: 18:04 Source: patient History of Present Illness Initial Comments Patient is a 33-year-old female with a past medical history of type 2 diabetes, hypertension, chronic kidney disease, anxiety, depression, and marijuana use presenting to the emergency department with nausea and vomiting that have allegedly been ongoing for one week. Today she developed right flank pain which concerned her so she decided to report to the ER for further evaluation. Denies any fever, chills, dysuria, hematuria, vaginal bleeding, or any other symptoms at this time. Allergies: Coded Allergies: No Known Allergies (Unverified Allergy, Unknown, 04/24/22) Home Meds Active Scripts Nitrofurantoin/Nitrofuran Mac (Macrobid) 100 Mg Cap, 1 CAP PO BID for 5 Days, #10 CAP 0 Refills Prov:LELO BRINK 06/13/24 Ondansetron (Ondansetron Odt) 4 Mg Tab.rapdis, 4 MG PO Q6HPRN PRN for nausea, #16 TAB 0 Refills Prov:TONIE KAHN NP 03/05/24 Reported Medications Metoclopramide HCl (Reglan) 5 Mg Tab, 5 MG PO BIDAC, TAB 04/18/24 Past Medical History Past Medical History: Anemia, Depression, Diabetes-Type II, Hypertension, Renal Disese, Other Medical History Other: DYSTONIA, CUENCA BARRE, MARIJUANA USE, Past Surgical History: Cholecystectomy, Other, Surgical History Other: EYE SURGERY Family History Family History: Negative Social History Social History: Negative Female( History) History: Not Applicable : 4 Para: 2 Aborts: 2 ROS Dictation CONSTITUTIONAL: Negative except for HPI HEAD/FACE: Negative except for HPI EENT: Negative except for HPI RESPIRATORY: Negative except for HPI GASTROINTESTINAL/ABDOMINAL: Negative except for HPI GENITOURINARY: Negative except for HPI MUSCULOSKELETAL: Negative except for HPI INTEGUMENTARY: Negative except for HPI NEUROLOGICAL/PSYCH: Negative except for HPI HEMATOLOGIC/LYMPHATIC: Negative except for HPI All Systems Negative, Except as noted above. 13 point review of systems assessed and all negative except for above. Physical Exam Physical Exam Dictation Vital Signs reviewed General Appearance: Alert, oriented x 3, no acute distress, well developed, nourished. Head and Face: non-traumatic. Eyes: PERRL, pink conjunctivas, eyelid no trauma, anterior chamber with arcus senilis. Ears: Pinnas intact and no signs of trauma or erythema ear canals clear and no discharge TM no erythema Nose: No discharge, no bleeding. Oropharynx: Mouth normal, tongue pink, pharynx clear,no erythema, tonsils no exudates, no abscesses noted, mucous membrane moist Neck: Supple, non-tender, no thyromegaly, no masses, no JVD, no bruits Breast:Deferred Chest:No tenderness, no crepitus, no paradoxical movement, no retractions Lungs:Clear, well-ventilated, symmetric, no rales, no wheezing, no rhonchi, no stridor, good breath sounds bilaterally Heart: Regular rate, regular rhythm, no murmur, no gallops Vascular: no peripheral edema, Abdomen: Soft, positive bowel sounds, nondistended, no guarding, nontender, no rebound, no masses no hepatomegaly, no splenomegaly, no Reece's sign, no hernias. Rectal: Deferred Genital: Deferred Neurological: Normal speech, motor function intact, sensory function intact Musculoskeletal: Neck nontender, full range of motion, back nontender, full range of motion, Extremities: nontender, full range of motion Skin: Color pink, dry, no turgor, no rash, no lacerations, no abrasions, no contusions. Lymphatic: Deferred Results Laboratory and Microbiology Lab and Micro Result Laboratory Tests Test 06/13/24 18:42 06/13/24 18:54 06/13/24 20:21 06/13/24 21:06 White Blood Count 6.7 K/uL (4.8-10.8) Red Blood Count 3.65 MIL/uL (4.00-5.50) L Hemoglobin 10.7 g/dL (12.0-16.0) L Hematocrit 32.2 % (36-48) L Mean Corpuscular Volume 88.2 fL (79-99) Mean Corpuscular Hemoglobin 29.3 pg (27.0-33.0) Mean Corpuscular Hemoglobin Concent 33.2 g/dL (32.0-36.0) Red Cell Distribution Width 13.9 % (11.0-15.5) Platelet Count 234 K/uL (130-400) Mean Platelet Volume 9.6 fL (7.5-10.5) Immature Granulocyte % (Auto) 0.1 % (0-1) Neutrophils (%) (Auto) 50.5 % (40.0-77.0) Lymphocytes (%) (Auto) 33.4 % (21.0-51.0) Monocytes (%) (Auto) 6.2 % (3.0-13.0) Eosinophils (%) (Auto) 8.6 % (0.0-8.0) H Basophils (%) (Auto) 1.2 % (0.0-5.0) Neutrophils # (Auto) 3.4 K/uL (1.8-7.7) Lymphocytes # (Auto) 2.3 K/uL (1.0-4.8) Monocytes # (Auto) 0.4 K/uL (0.1-1.0) Eosinophils # (Auto) 0.58 K/uL (0.00-0.70) Basophils # (Auto) 0.08 K/uL (0.00-0.20) Absolute Immature Granulocyte (auto 0.01 K/uL (0-1) Nucleated Red Blood Cells 0.0 % (0.0-0.19) Sodium Level 142 mmol/L (136-145) Potassium Level 5.5 mmol/L (3.5-5.1) H Chloride Level 108 mmol/L (101-111) Carbon Dioxide Level 27 mmol/L (21-32) Blood Urea Nitrogen 37 mg/dL (7-18) H Creatinine 2.5 mg/dL (0.5-1.0) H Glomerular Filtration Rate Calc 25 mL/min (>90) Random Glucose 82 mg/dL (70-105) Total Calcium 9.3 mg/dL (8.5-10.1) Total Bilirubin 0.3 mg/dL (0.2-1.0) Direct Bilirubin 0.1 mg/dL (0.0-0.3) Aspartate Amino Transf (AST/SGOT) 20 U/L (10-37) Alanine Aminotransferase (ALT/SGPT) 20 U/L (12-78) Alkaline Phosphatase 70 U/L (50-136) Total Protein 8.1 g/dL (6.0-8.3) Albumin 4.1 g/dL (3.5-5.0) Lipase 84 U/L (16-77) H Serum Test, Qualitative NEGATIVE (NEGATIVE) Urine Color LIGHT-YELLOW (YELLOW) Urine Appearance CLEAR (CLEAR) Urine pH 7.0 (5.0-8.0) Urine Specific [place] 1.014 (1.001-1.031) Urine Protein 300 mg/dL (NEGATIVE) H Urine Glucose (UA) NEGATIVE mg/dL (NEGATIVE) Urine Ketones NEGATIVE mg/dL (NEGATIVE) Urine Occult Blood SMALL (NEGATIVE) H Urine Nitrate NEGATIVE (NEGATIVE) Urine Bilirubin NEGATIVE mg/dL (NEGATIVE) Urine Urobilinogen 0.2 mg/dL (0.2-1.0) Urine Leukocyte Esterase 75 Jeannie/uL (NEGATIVE) H Urine RBC 6-10 /HPF (0-1) H Urine WBC 11-25 /HPF (0-1) H Urine Squamous Epithelial Cells RARE /HPF (0-2) Urine Bacteria RARE /HPF (None Seen) Whole Blood Glucose 93 MG/DL (70-110) 29 MG/DL (70-110) #*L Test 06/13/24 21:28 06/13/24 21:43 Potassium Level 4.3 mmol/L (3.5-5.1) Whole Blood Glucose 302 MG/DL (70-110) #H Labs Reviewed?: Yes MDM MDM: Patient is a 33-year-old female with a past medical history of type 2 diabe nisha, hypertension, chronic kidney disease, anxiety, depression, and marijuana use presenting to the emergency department with nausea and vomiting that have allegedly been ongoing for one week. Today she developed right flank pain which concerned her so she decided to report to the ER for further evaluation. Denies any fever, chills, dysuria, hematuria, vaginal bleeding, or any other symptoms at this time. On arrival of the patient is in no acute distress. Initial vital signs are stable. Patient is afebrile and nontoxic appearing. Abdominal examination is unremarkable. There was no CVA tenderness. CBC shows a normal white blood cell count of 6.7. Hemoglobin is stable at 10.7. Platelet count is 234. Chemistries reveal hypokalemia with a potassium of 5.4. Creatinine is 2.5 and a BUN of 37. When comparing previous kidney function it appears patient is at her baseline. Urinalysis reveals trace leuk esterase with positive WBCs. We will treat urine infection outpatient. There are no signs of pyelonephritis at this time. Patient was not actively vomiting. She has been in the emergency department for over 2 hours and has remained stable and asymptomatic. She was found to be hyperkalemic so a hyperkalemia protocol started. The patient was given calcium gluconate, insulin with dextrose and Kayexalate. Prior to the administration insulin there was a fingerstick glucose of over 120. After the administration of insulin the patient's glucose dropped to 29. The patient was given two amps of D50 with repeat sugar of 302. The patient was observed after this episode and remained stable and asymptomatic. Repeat potassium was 4.3. Patient will be discharged with outpatient management. No need for advanced imaging at this time as there are no signs of pyelonephritis or ureter stone. Differential diagnosis: Kidney stone, DKA, renal failure, electrolyte abnormality, dehydration There are no social concerns with this patient. Prescription drug management Prescriptions will include: None Medical management and examination interpretation discussions were had by me with other qualified healthcare professionals as indicated for the patient's care. ED Course Orders Procedure Category Date Status Time Cbc With Differential LAB 06/13/24 Complete 18:29 Basic Metabolic Panel LAB 06/13/24 Complete 18:29 Hepatic Function Panel LAB 06/13/24 Complete 18:29 Lipase LAB 06/13/24 Complete 18:29 Urinalysis Profile LAB 06/13/24 Complete 18:29 Testing, LAB 06/13/24 Complete Serum Hcg 18:29 Culture Urine COREY 06/13/24 In Process 19:03 Calcium Gluc 1gm PHA 06/13/24 Complete (Calcium Gluc 1gm 19:30 Insulin Regular, PHA 06/13/24 Complete Human 3ml (Humulin R 19:30 Sodium Polystyr Sulf PHA 06/13/24 Complete 15gm (Kayexalate 15 19:30 Dextrose 50%-Water PHA 06/13/24 Complete (D50w) 20:00 Calcium Gluc 1gm PHA 06/13/24 Complete (Calcium Gluc 1gm 19:40 Morphine 2mg Syg PHA 06/13/24 Complete (Morphine 2mg Syg) 20:30 Ondansetron 4mg Inj PHA 06/13/24 Complete (Zofran 4mg Inj) 20:30 Potassium LAB 06/13/24 Complete 21:03 Dextrose 50%-Water PHA 06/13/24 Complete (D50w) 22:30 Dextrose 50%-Water PHA 06/13/24 Complete (D50w) 22:30 Current Medications Medications (Trade) Dose Ordered Sig/Italo Route PRN Reason Start Time Stop Time Status Last Admin Dose Admin Calcium Gluconate (Calcium Gluc 1gm Vial) 1 gm STK-MED ONCE .ROUTE 06/13/24 19:40 06/13/24 19:41 DC Calcium Gluconate 1 gm/Sodium Chloride 110 ml @ 110 mls/hr ONCE ONCE IV 06/13/24 19:30 06/13/24 20:29 DC 06/13/24 19:41 Dextrose (D50w) 50 ml ONCE ONCE IV 06/13/24 20:00 06/13/24 20:01 DC 06/13/24 19:39 Dextrose (D50w) 50 ml ONCE ONCE IV 06/13/24 22:30 06/13/24 22:31 DC 06/13/24 22:13 Dextrose (D50w) 50 ml ONCE ONCE IV 06/13/24 22:30 06/13/24 22:31 DC Insulin Human Regular (humuLIN R 100 UNIT/ML 3ML) 5 unit ONCE ONCE IV 06/13/24 19:30 06/13/24 19:32 DC 06/13/24 19:46 Morphine Sulfate (morPHINE 2MG SYG) 2 mg ONCE ONCE IVP 06/13/24 20:30 06/13/24 20:31 DC 06/13/24 20:28 Ondansetron HCl (zoFRAN 4MG INJ) 4 mg ONCE ONCE IVP 06/13/24 20:30 06/13/24 20:31 DC 06/13/24 20:28 Sodium Polystyrene Sulfonate (kayEXALate 15 GM/60 ML) 30 gm ONCE PO 06/13/24 19:30 06/13/24 22:44 DC 06/13/24 19:39 Vital Signs Date Time Temp Pulse Resp B/P (MAP) Pulse Ox O2 Delivery O2 Flow Rate FiO2 06/13/24 22:43 98.4 75 19 132/65 100 Room Air* 0 21 06/13/24 19:57 98.4 78 18 144/89 99 Room Air* 0 21 06/13/24 17:22 98.1 91 20 114/74 100 Room Air DX & DISP Disposition: Discharge Departure Impression: Primary Impression: Urinary tract infection Additional Impressions: Hyperkalemia, Chronic kidney disease Condition: Stable Scripts Nitrofurantoin/Nitrofuran Mac (Macrobid) 100 Mg Cap 1 CAP PO BID for 5 Days, #10 CAP 0 Refills Prov: LELO BRINK 06/13/24 Referrals: MAICO POLLACK (PCP) Time of Disposition: 22:15 I have reviewed the case, and I agree with, Diagnosis and Plan I performed the substantive portion of the visit. I have reviewed and personally made and approve the management plan that is documented in the note by myself or the RAJAT. I acknowledge for responsibility for the patient's management plan. LELO BRINK Jun 13, 2024 22:16
[2024-06-13 22:43] VITALS: BP 132/65; PULSE 75; RESP 19; TEMP 98.5; O2SAT 100
== END 2024-06-13 22:30 | disposition home or self-care (01) ==
LOC: EDH 17:21
DX: I12.9 Hypertensive chronic kidney disease with stage 1 through stage 4 chronic kidney disease, or unspecified chronic kidney disease (principal); E11.22 Type 2 diabetes mellitus with diabetic chronic kidney disease; N18.9 Chronic kidney disease, unspecified; N39.0 Urinary tract infection, site not specified; E87.5 Hyperkalemia; Z90.49 Acquired absence of other specified parts of digestive tract
CPT/HCPCS: 99284; 80076; 84132; 80048; 84703; 83690; 85025; 87086 ×2; 87186; 82948 ×3; 81001; 36415; 96365; 96375; 96376; J2270; J7070 ×2; J0612 ×2; J2405; J1815

== ENCOUNTER 2024-07-08 04:35 | Emergency (ER) | payer MEDICAID ==
[~2024-07-08] VITALS: Ht 147.3 cm; Wt 53.1 kg
[~2024-07-08 04:35] MED LIST changes: +MACR100 PO
--- NOTE | 2024-07-08 04:48 | ERN ---
ED Note History of Present Illness Stated Complaint: NAUSEA/VOMITING Chief Complaint: Nausea,Vomiting,Diarrhea Time Seen by MD: 04:42 Dictation: This is a 33-year-old female with multiple medical problems presented to the emergency room with complaints of nausea vomitings and loose stool. This has been going on for a over a week. No fevers chills or rigors. Patient has had multiple admissions and ER visits for similar complaints and extensive evaluation including imaging was done which did not reveal any acute intra- abdominal pathology. Patient admits to cannabis use and she also claimed that she has gastroparesis. She has chronic pain syndrome and is on opioids She also told the EMS team that she is basically here for narcotic pain medications and she would leave against medical advice after that. Temperature 98.4 pulse 80 respirations 16 blood pressure 186/92 with a pulse oximetry of 98% on room air Chronic medical problems include diabetes mellitus type 2, hypertension, chronic anemia, chronic renal insufficiency, history of dystonia, Guillain-[place] syndrome and marijuana use Allergies: Coded Allergies: No Known Allergies (Unverified Allergy, Unknown, 04/24/22) Home Meds Active Scripts Nitrofurantoin/Nitrofuran Mac (Macrobid) 100 Mg Cap, 1 CAP PO BID for 5 Days, #10 CAP 0 Refills Prov:LELO BRINK 06/13/24 Ondansetron (Ondansetron Odt) 4 Mg Tab.rapdis, 4 MG PO Q6HPRN PRN for nausea, #16 TAB 0 Refills Prov:TONIE KAHN TRANSCRIPTER 03/05/24 Reported Medications Metoclopramide HCl (Reglan) 5 Mg Tab, 5 MG PO BIDAC, TAB 04/18/24 Past Medical History Past Medical History: Anemia, Depression, Diabetes-Type II, Hypertension, Renal Disese, Other Additional Past Medical Hx: DYSTONIA, CUENCA BARRE, MARIJUANA USE, Surgical History: Cholecystectomy, Other, Surgical History Other: EYE SURGERY Family History: Negative Social History: Drugs (Marijuana use), Negative History: Not Applicable : 4 Para: 2 Aborts: 2 RN Note Reviewed/Agreed w/PFSH: Yes Review of System Dictation Constitutional: Negative for fever,chills, and weight loss Eyes: Negative for injury, pain,redness, and discharge ENT: Negative for injury,pain or swelling Cardiovascular: Negative for chest pain, palpitations, and edema Respiratory: Negative for shortness of breath, cough, and wheezing, Abdomen/GI: Positive for , nausea, vomiting, diarrhea, Back: Negative for injury and pain : Negative for injury, bleeding and discharge MS/Extremity: Negative for injury and deformity Skin: Negative for rash, and discoloration Neuro: Negative for headache, weakness, numbness, tingling, and seizure Psych: Negative for suicide ideation, homicidal ideation, and hallucinations Initial Vital Sign VS Vital Signs Date Time Temp Pulse Resp B/P (MAP) Pulse Ox O2 Delivery O2 Flow Rate FiO2 07/08/24 04:37 98.1 80 16 186/92 97 Room Air 0 07/08/24 04:52 21 Physical Exam Dictation General: awake, alert, NAD extremely frail chronically ill-appearing, much older than her age, emaciated, actively vomitings during my visit Head/Face: Normocephalic, atraumatic, patches of hair loss Eyes: PERRL, EOMI, vision at baseline ENT: oral cavity clear, TMs clear, no signs of infection Neck: Trachea midline, supple, no nuchal rigidity Cardiovascular: RRR, normal S1/S2, No MRGs, no JVD Respiratory: CTAB, no respiratory distress, No rales or wheezes Abdomen: Soft, non-tender, non-distended, normal bowel sounds, no guarding or rebound. Skin: Warm, dry, normal turgor, no rash MS/Extremity: Pulses equal, no cyanosis, neurovascular intact, FROM Neuro: COAx4, GCS 15, strength 5/5, CN 2-12 intact, normal cerebellar exam, nor mal gait, Psych: Normal behavior, mood, and affect normal Extremities-trace edema without any palpable cords, Homans sign is negative Results (Laboratory/Radiology) Laboratory/Radiology Laboratory Tests Test 07/08/24 05:28 07/08/24 06:00 White Blood Count 7.6 K/uL (4.8-10.8) Red Blood Count 3.95 MIL/uL (4.00-5.50) L Hemoglobin 11.8 g/dL (12.0-16.0) L Hematocrit 34.9 % (36-48) L Mean Corpuscular Volume 88.4 fL (79-99) Mean Corpuscular Hemoglobin 29.9 pg (27.0-33.0) Mean Corpuscular Hemoglobin Concent 33.8 g/dL (32.0-36.0) Red Cell Distribution Width 13.1 % (11.0-15.5) Platelet Count 295 K/uL (130-400) Mean Platelet Volume 10.1 fL (7.5-10.5) Immature Granulocyte % (Auto) 0.3 % (0-1) Neutrophils (%) (Auto) 53.7 % (40.0-77.0) Lymphocytes (%) (Auto) 34.7 % (21.0-51.0) Monocytes (%) (Auto) 4.5 % (3.0-13.0) Eosinophils (%) (Auto) 5.5 % (0.0-8.0) Basophils (%) (Auto) 1.3 % (0.0-5.0) Neutrophils # (Auto) 4.1 K/uL (1.8-7.7) Lymphocytes # (Auto) 2.6 K/uL (1.0-4.8) Monocytes # (Auto) 0.3 K/uL (0.1-1.0) Eosinophils # (Auto) 0.42 K/uL (0.00-0.70) Basophils # (Auto) 0.10 K/uL (0.00-0.20) Absolute Immature Granulocyte (auto 0.02 K/uL (0-1) Nucleated Red Blood Cells 0.0 % (0.0-0.19) Sodium Level 138 mmol/L (136-145) Potassium Level 5.1 mmol/L (3.5-5.1) Chloride Level 105 mmol/L (101-111) Carbon Dioxide Level 26 mmol/L (21-32) Blood Urea Nitrogen 47 mg/dL (7-18) H Creatinine 2.6 mg/dL (0.5-1.0) H Glomerular Filtration Rate Calc 24 mL/min (>90) Random Glucose 102 mg/dL (70-105) Total Calcium 9.5 mg/dL (8.5-10.1) Lipase 98 U/L (16-77) H Human Chorionic Gonadotropin, Quant 0 mIU/mL (0-5) Urine Color LIGHT-YELLOW (YELLOW) Urine Appearance CLOUDY (CLEAR) H Urine pH 8.0 (5.0-8.0) Urine Specific [place] 1.011 (1.001-1.031) Urine Protein 300 mg/dL (NEGATIVE) H Urine Glucose (UA) NEGATIVE mg/dL (NEGATIVE) Urine Ketones NEGATIVE mg/dL (NEGATIVE) Urine Occult Blood MODERATE (NEGATIVE) H Urine Nitrate 2+ (NEGATIVE) H Urine Bilirubin NEGATIVE mg/dL (NEGATIVE) Urine Urobilinogen 0.2 mg/dL (0.2-1.0) Urine Leukocyte Esterase NEGATIVE Jeannie/uL Urine RBC 51-100 /HPF (0-1) H Urine WBC 11-25 /HPF (0-1) H Urine Squamous Epithelial Cells RARE /HPF (0-2) Urine Bacteria MANY /HPF (None Seen) Urine Hyaline Casts 0-1 /LPF (0-1 /LPF) Urine Opiates Screen NEGATIVE (NEGATIVE) Urine Barbiturates Screen NEGATIVE (NEGATIVE) Urine Phencyclidine Screen NEGATIVE (NEGATIVE) Urine Amphetamines Screen NEGATIVE (NEGATIVE) Urine Benzodiazepines Screen NEGATIVE (NEGATIVE) Urine Cocaine Screen NEGATIVE (NEGATIVE) Urine Marijuana (THC) Screen POSITIVE (NEGATIVE) H Labs Reviewed?: Yes ED Course ED Course Orders Procedure Category Date Status Time Cbc With Differential LAB 07/08/24 Complete 04:46 Basic Metabolic Panel LAB 07/08/24 Complete 04:46 Hcg,Quantitative LAB 07/08/24 Complete 04:46 Urinalysis Profile LAB 07/08/24 Complete 04:46 Lipase LAB 07/08/24 Complete 04:46 Drug Screen Urine LAB 07/08/24 Complete 04:46 Pantoprazole 40mg Inj PHA 07/08/24 Complete (Protonix 40mg Inj 05:00 Ondansetron 4mg Inj PHA 07/08/24 Complete (Zofran 4mg Inj) 05:00 Ketorolac PHA 07/08/24 Complete Tromethamine 15mg/Ml 05:00 Ketorolac PHA 07/08/24 Complete Tromethamine 15mg/Ml 05:11 Promethazine Hcl PHA 07/08/24 Complete (Phenergan) 06:00 0.9%Nacl 1000ml (Ns PHA 07/08/24 Complete 1000ml) 06:30 Culture Urine COREY 07/08/24 Logged 06:53 Current Medications Medications (Trade) Dose Ordered Sig/Italo Route PRN Reason Start Time Stop Time Status Last Admin Dose Admin Ketorolac Tromethamine (toRADol) 15 mg ONCE ONCE IV 07/08/24 05:00 07/08/24 05:02 DC 07/08/24 05:00 Ketorolac Tromethamine (toRADol) 15 mg STK-MED ONCE .ROUTE 07/08/24 05:11 07/08/24 05:12 DC Ondansetron HCl (zoFRAN 4MG INJ) 4 mg ONCE ONCE IVP 07/08/24 05:00 07/08/24 05:01 DC 07/08/24 05:27 Pantoprazole Sodium (PROTonix 40MG INJ) 40 mg ONCE ONCE IVP 07/08/24 05:00 07/08/24 05:01 DC 07/08/24 05:27 Promethazine HCl (Phenergan) 12.5 mg ONCE ONCE IM 07/08/24 06:00 07/08/24 06:01 DC 07/08/24 06:05 Sodium Chloride 1,000 ml @ 0 mls/hr ONCE ONCE IV 07/08/24 06:30 07/08/24 06:31 DC 07/08/24 06:39 Vital Signs Date Time Temp Pulse Resp B/P (MAP) Pulse Ox O2 Delivery O2 Flow Rate FiO2 07/08/24 04:52 98.4 89 22 163/92 99 Room Air* 0 21 07/08/24 04:37 98.1 80 16 186/92 97 Room Air 0 We will perform diagnostic labs, advanced imaging and administer medications according to the patient's complaint. Once the results are available, will review and personally interpreted the labs to rule out any acute life- threatening emergency the trach require immediate intervention and treatment. I will then re evaluate the patient after treatment and diagnostic exams have return to determine whether the patient requires any further testing, can safely be discharged home or need further admission to hospital for additional treatment and evaluation. Reviewed labs CBC is baseline with a hemoglobin of 11.8 BNP 7 is also at baseline with a potassium of 5.1 BUN and creatinine are 47 and 2.6. Lipase is 98 test is negative Please note that the patient had a CT scan of the abdomen and pelvis in April that did not show any acute abnormalities. Assess response to antiemetics Medical Decision Making MDM MDM: Differential diagnosis: Gastroenteritis, cannabis hyperemesis syndrome, constipation, medication related, gastroparesis Rationale: Tests considered and ordered secondary to shared decision making include: Previous outside records reviewed: Old ER visits. Risk of complication and/or morbidity or mortality of patient management: None Medications-Per medication reconciliation Need for hospitalization: Patient does not meet criteria for hospitalization. Need for emergency major/minor surgery: No There are no social concerns with this patient. Prescription drug management Prescriptions will include symptomatic care Patient's prior external medical records from other ER visits were reviewed by me as indicated. Prior testing and results from previous visits were reviewed. Prior tests were taken into account with medical decision making and resource utilization, independent historian/historians were used to obtain complete medical history. I independently interpreted the test that were performed, results were reviewed by me and considered findings on radiology if ordered. Medical management and examination interpretation discussions were had by me with other qualified healthcare professionals as indicated for the patient's care. Problem List Problem List: (1) Nausea & vomiting (2) Cannabis abuse (3) DM (diabetes mellitus) in (4) Dehydration (5) Chronic pain syndrome (6) Chronic kidney disease (7) Gastroparesis (8) Cannabinoid hyperemesis syndrome DX & DISP Disposition: Discharge Departure Impression: Primary Impression: Nausea & vomiting Additional Impressions: Cannabis abuse, Dehydration, Chronic kidney disease, Gastroparesis, Cannabis hyperemesis syndrome concurrent with and due to cannabis dependence, Diabetes mellitus with hyperglycemia Condition: Stable Additional Instructions: Patient and the caregiver have been informed of all the diagnostic tests and the imaging conducted during the today's visit to the emergency room and has verbalized understanding of the results I have personally reviewed and interpreted all diagnostic exams performed here in the ER today as well as the vital signs documented by the nursing staff. The patient is now being discharged to home and should follow up with the primary care physician or the specialist as directed by the ER staff. Referrals: MAICO POLLACK (PCP) JYOTI SPEAR MD Jul 08, 2024 04:48
[2024-07-08 04:52] VITALS: TEMP 98.5
[2024-07-08] MEDS: ketOROlac 15MG/ML VIAL (15MG/ML) IV ONE (05:00)
[2024-07-08] MEDS: ketOROlac 15MG/ML VIAL (15MG/ML) ONE (05:27)
[2024-07-08] MEDS: ondanSETRON 4MG INJ IVP ONE (05:27)
[2024-07-08] MEDS: PANTOPrazole 40 MG/VIAL IVP ONE (05:27)
[2024-07-08 05:34] LABS: BASOPHILS % (AUTO) 1.3 % (0.0-5.0); EOSINOPHILS # (AUTO) 0.42 K/uL (0.00-0.70); EOSINOPHILS % (AUTO) 5.5 % (0.0-8.0); HEMATOCRIT 34.9 % (36-48); IMMATURE GRANULOCYTE ABSOLUTE 0.02 K/uL (0-1); LYMPHOCYTES # (AUTO) 2.6 K/uL (1.0-4.8); LYMPHOCYTES % (AUTO) 34.7 % (21.0-51.0); MEAN CORPUSCULAR HEMOGLOBIN 29.9 pg (27.0-33.0); MEAN CORPUSCULAR HGB CONC 33.8 g/dL (32.0-36.0); MEAN CORPUSCULAR VOLUME 88.4 fL (79-99); MONOCYTES # (AUTO) 0.3 K/uL (0.1-1.0); MONOCYTES % (AUTO) 4.5 % (3.0-13.0); NEUTROPHILS # (AUTO) 4.1 K/uL (1.8-7.7); NEUTROPHILS % (AUTO) 53.7 % (40.0-77.0); PLATELET COUNT (AUTO) 295 K/uL (130-400); RED BLOOD CELL COUNT(AUTO) 3.95 MIL/uL (4.00-5.50); RED CELL DISTRIBUTION WIDTH 13.1 % (11.0-15.5); WHITE BLOOD COUNT (AUTO) 7.6 K/uL (4.8-10.8)
[2024-07-08 05:55] LABS: CREATININE 2.6 mg/dL (0.5-1.0); POTASSIUM 5.1 mmol/L (3.5-5.1)
[2024-07-08] MEDS: PROMETHAZINE HCL 25 MG/ML 1ML AMPULE IM ONE (06:05)
[2024-07-08 06:20] LABS: AMPHET/METH SCREEN,URINE NEGATIVE (NEGATIVE); BARBITURATE SCREEN, URINE NEGATIVE (NEGATIVE); BENZODIAZEPINES SCREEN,URINE NEGATIVE (NEGATIVE); CANNABINOID SCREEN,URINE POSITIVE (NEGATIVE); COCAINE SCREEN,URINE NEGATIVE (NEGATIVE); OPIATE SCREEN,URINE NEGATIVE (NEGATIVE); PHENCYCLIDINE SCREEN,URINE NEGATIVE (NEGATIVE)
[2024-07-08] MEDS: 0.9%NACL 1000ML 1,000 ML IV ONE (06:39)
[2024-07-08 06:48] LABS: APPEARANCE,URINE CLOUDY (CLEAR); BILIRUBIN,URINE NEGATIVE (NEGATIVE); COLOR,URINE LIGHT-YELLOW (YELLOW); GLUCOSE, URINE (UA) NEGATIVE (NEGATIVE); KETONES,URINE NEGATIVE (NEGATIVE); LEUKOCYTE ESTERASE ,URINE NEGATIVE Leu/uL (NEGATIVE); NITRATE,URINE 2+ (NEGATIVE); OCCULT BLOOD,URINE MODERATE (NEGATIVE); PROTEIN,URINE 300 mg/dL (NEGATIVE); UROBILINOGEN,URINE 0.2 mg/dL (0.2-1.0)
[2024-07-08 06:53] LABS: ADD UA MICROSCOPIC YES
[2024-07-08 06:55] LABS: BACTERIA,URINE MANY /HPF (None Seen); HYALINE CASTS, URINE 0-1 /LPF (0-1 /LPF); MUCUS,URINE RARE LPF (None Seen); RBC,URINE 51-100 /HPF (0-1); SQUAMOUS EPITHELIAL CELL,UR RARE /HPF (0-2)
[2024-07-08 07:04] VITALS: BP 154/87; PULSE 78; RESP 20; O2SAT 99
== END 2024-07-08 08:40 | disposition home or self-care (01) ==
LOC: EDH 04:35
DX: I12.9 Hypertensive chronic kidney disease with stage 1 through stage 4 chronic kidney disease, or unspecified chronic kidney disease (principal); E11.22 Type 2 diabetes mellitus with diabetic chronic kidney disease; K31.84 Gastroparesis; N18.9 Chronic kidney disease, unspecified; E11.65 Type 2 diabetes mellitus with hyperglycemia; F12.20 Cannabis dependence, uncomplicated; E86.0 Dehydration; R10.2 Pelvic and perineal pain; Z90.49 Acquired absence of other specified parts of digestive tract
CPT/HCPCS: 99284; 96374; 96375; 80048; 80305; 84702; 83690; 85025; 87086 ×2; 87186; 36415; 96372; 81001; J1885; J2550; J2405; J2470; 99285

== ENCOUNTER 2024-08-04 09:40 | Emergency (ER) | payer MEDICAID ==
[~2024-08-04] VITALS: Ht 147.3 cm; Wt 68.0 kg
[2024-08-04] MEDS ORDERED: ondanSETRON 4MG INJ IVP ONE (10:00)
[2024-08-04 10:11] LABS: BASOPHILS # (AUTO) 0.03 K/uL (0.00-0.20); BASOPHILS % (AUTO) 0.6 % (0.0-5.0); EOSINOPHILS # (AUTO) 0.03 K/uL (0.00-0.70); EOSINOPHILS % (AUTO) 0.6 % (0.0-8.0); HEMATOCRIT 31.1 % (36-48); IMMATURE GRANULOCYTE ABSOLUTE 0.01 K/uL (0-1); LYMPHOCYTES # (AUTO) 1.2 K/uL (1.0-4.8); LYMPHOCYTES % (AUTO) 22.3 % (21.0-51.0); MEAN CORPUSCULAR HEMOGLOBIN 30.3 pg (27.0-33.0); MEAN CORPUSCULAR HGB CONC 35.4 g/dL (32.0-36.0); MEAN CORPUSCULAR VOLUME 85.7 fL (79-99); MONOCYTES # (AUTO) 0.6 K/uL (0.1-1.0); MONOCYTES % (AUTO) 11.4 % (3.0-13.0); NEUTROPHILS # (AUTO) 3.5 K/uL (1.8-7.7); NEUTROPHILS % (AUTO) 64.9 % (40.0-77.0); PLATELET COUNT (AUTO) 208 K/uL (130-400); RED BLOOD CELL COUNT(AUTO) 3.63 MIL/uL (4.00-5.50); RED CELL DISTRIBUTION WIDTH 12.6 % (11.0-15.5); WHITE BLOOD COUNT (AUTO) 5.4 K/uL (4.8-10.8)
--- NOTE | 2024-08-04 10:12 | ERN ---
ED Note History of Present Illness Stated Complaint: ABD PAIN Chief Complaint: Abdominal Pain Time Seen by MD: 09:46 Dictation: History of present illness: 33-year-old female with past medical history of Guillain-Preemption syndrome, diabetes mellitus, severe gastroparesis, chronic renal failure presented to ED with complaints of nausea, vomiting, body ache, abdominal pain for past 4days. Patient went to [facility] this a.m. and was tested positive for flu. As per the patient She left the [facility] ER and came to [facility] ER due to some delay in treatment. She was given 1 dose of Tamiflu at the other facility but she vomited after taking the medication. At the time of presentation her temperature is 98.2 pulse rate 91 per minute, respiratory rate 18 per minute blood pressure 193/97, SpO2 98. Allergies: Coded Allergies: No Known Allergies (Unverified Allergy, Unknown, 04/24/22) Home Meds Active Scripts Ondansetron (Ondansetron Odt) 4 Mg Tab.rapdis, 4 MG PO Q6HPRN PRN for nausea, #16 TAB 0 Refills Prov:TONIE KAHN VAMP PRESSER 03/05/24 Reported Medications Metoclopramide HCl (Metoclopramide HCl) 5 Mg Tablet, 5 MG PO TIDAC, TAB 08/05/24 Discontinued Reported Medications Metoclopramide HCl (Reglan) 5 Mg Tab, 5 MG PO BIDAC, TAB 04/18/24 Discontinued Scripts Metoclopramide HCl (Reglan) 10 Mg Tablet, 1 TAB PO BID PRN for vomiting for 3 Days, #6 TAB 0 Refills before food and bedtime Prov:GENNY CAZARES MD 08/04/24 Nitrofurantoin/Nitrofuran Mac (Macrobid) 100 Mg Cap, 1 CAP PO BID for 5 Days, #10 CAP 0 Refills Prov:LELO BRINK 06/13/24 Past Medical History Past Medical History: Diabetes-Type I, Hypotension, Other Additional Past Medical Hx: CUENCA BARRE Surgical History: Tonsillectomy, Cholecystectomy, Surgical History Other: EYE SURGERY Family History: Negative Social History: Drugs, Negative History: Not Applicable : 4 Para: 2 Aborts: 2 Review of System Dictation REVIEW OF SYSTEMS Positive for nausea, vomiting, bodyache, abdominal pain CONSTITUTIONAL: Denies fevers, chills, or night sweats. No unintentional weight loss reported. ENT: No hearing loss, otalgia, otorrhea, rhinitis, rhinorrhea, hoarseness, or sore throat. CARDIOVASCULAR: Denies any exertional angina, dyspnea on exertion, orthopnea, paroxysmal nocturnal dyspnea, palpitations claudication. PULMONARY: Denies any shortness of breath, cough, phlegm / sputum, hemoptysis, pleuritic chest pain. SLEEP: Denies morning headaches, daytime somnolence or napping. Denies difficulty falling asleep, staying asleep, waking from sleep. Denies knowledge of snoring. GASTROINTESTINAL: Denies any type of dysphagia to either liquids or solids. Denies nausea, vomiting, abdominal pain, diarrhea, constipation, blood in stools . NEUROLOGICAL: Denies headache, motor weakness, sensory deficit, vertigo / spinning sensation, gait abnormalities, or tremors. GENITOURINARY: Denies frequency, urgency, nocturia, hematuria or incontinence, low urinary stream, straining to void, urinary intermittency or hesitancy ENDOCRINOLOGY: Denies polyuria, polydipsia, polyphagia or heat / cold intolerance. HEMATOLOGY: Denies thrombophilia / previous clots, or coagulopathy / bleeding disorders. ONCOLOGIC: Denies personal history of malignancy. DERMATOLOGIC: Denies rashes or pruritus. PSYCHIATRIC: Denies any suicidal or homicidal ideation. Denies hallucinations. Initial Vital Sign VS Vital Signs Date Time Temp Pulse Resp B/P (MAP) Pulse Ox O2 Delivery O2 Flow Rate FiO2 08/04/24 09:42 98.2 91 18 193/97 98 0 08/04/24 10:39 Room Air* 21 Physical Exam Dictation PHYSICAL EXAM GENERAL APPEARANCE: Well nourished . Awake and alert. Oriented to time, place and person. No acute cardiopulmonary distress. HEENT: Head normocephalic , atraumatic. Sclera anicteric . Pupils are round and reactive. Extraocular movements intact . No conjunctival injection. No nasal congestion. No throat congestion .Oral mucosa moist. NECK: Supple. No JVD. No thyromegaly. No submental, submandibular, pre- /postauricular, occipital or supraclavicular lymphadenopathy. No carotid bruits. CHEST: Normal chest expansion. No Telemetry. LUNGS: Clear to auscultation bilaterally . No rales, rhonchi or any wheezing. Equal tactile fremitus. Resonant to percussion . CARDIOVASCULAR: Regular rate and rhythm. S1 and S2 normal. No rubs, murmurs or gallops. ABDOMEN: Soft, nontender, and nondistended. There is no rebound tenderness, voluntary guarding, or rigidity. No hepatosplenomegaly. Bowel sounds normal in all four quadrants . NEUROLOGICAL: Cranial nerves II-XII grossly intact. Motor is 5/5 in bilateral upper and lower extremities . b/l foot drop EXTREMITIES: No edema, No cyanosis , No clubbing. Good capillary refill. SKIN: No skin breakdown. No rashes or lesions . PSYCHIATRY: Normal affect .No auditory or visual hallucinations. Normal speech. No dysarthria. Results (Laboratory/Radiology) Laboratory/Radiology Laboratory Tests Test 08/04/24 09:56 08/04/24 10:20 White Blood Count 5.4 K/uL (4.8-10.8) Red Blood Count 3.63 MIL/uL (4.00-5.50) L Hemoglobin 11.0 g/dL (12.0-16.0) L Hematocrit 31.1 % (36-48) L Mean Corpuscular Volume 85.7 fL (79-99) Mean Corpuscular Hemoglobin 30.3 pg (27.0-33.0) Mean Corpuscular Hemoglobin Concent 35.4 g/dL (32.0-36.0) Red Cell Distribution Width 12.6 % (11.0-15.5) Platelet Count 208 K/uL (130-400) Mean Platelet Volume 11.1 fL (7.5-10.5) H Immature Granulocyte % (Auto) 0.2 % (0-1) Neutrophils (%) (Auto) 64.9 % (40.0-77.0) Lymphocytes (%) (Auto) 22.3 % (21.0-51.0) Monocytes (%) (Auto) 11.4 % (3.0-13.0) Eosinophils (%) (Auto) 0.6 % (0.0-8.0) Basophils (%) (Auto) 0.6 % (0.0-5.0) Neutrophils # (Auto) 3.5 K/uL (1.8-7.7) Lymphocytes # (Auto) 1.2 K/uL (1.0-4.8) Monocytes # (Auto) 0.6 K/uL (0.1-1.0) Eosinophils # (Auto) 0.03 K/uL (0.00-0.70) Basophils # (Auto) 0.03 K/uL (0.00-0.20) Absolute Immature Granulocyte (auto 0.01 K/uL (0-1) Nucleated Red Blood Cells 0.0 % (0.0-0.19) Sodium Level 139 mmol/L (136-145) Potassium Level 4.3 mmol/L (3.5-5.1) Chloride Level 101 mmol/L (101-111) Carbon Dioxide Level 25 mmol/L (21-32) Blood Urea Nitrogen 56 mg/dL (7-18) H Creatinine 2.9 mg/dL (0.5-1.0) H Glomerular Filtration Rate Calc 21 mL/min (>90) Random Glucose 76 mg/dL (70-105) Lactic Acid Level 1.1 mmol/L (0.8-2.5) Total Calcium 8.9 mg/dL (8.5-10.1) Procalcitonin 0.13 ng/mL (0.05-0.5) Influenza Type A Antigen Positive For Type A Influenza Type B Antigen Negative For Type B SARS-CoV-2 Antigen (Rapid) PRESUMPTIVE NEGATIVE ED Course ED Course Orders Procedure Category Date Status Time Cbc With Differential LAB 08/04/24 Complete 10:00 Basic Metabolic Panel LAB 08/04/24 Complete 10:00 Chest 1vw RAD 08/04/24 Resulted 10:00 Lactic Acid LAB 08/04/24 Complete 10:00 Influenza Type A & B, LAB 08/04/24 Complete Rapid 10:00 Covid19 (Sars Antigen LAB 08/04/24 Complete Rapid) 10:00 Procalcitonin LAB 08/04/24 Complete 10:00 Ondansetron 4mg Inj PHA 08/04/24 Complete (Zofran 4mg Inj) 10:00 Dicyclomine Hcl PHA 08/04/24 Complete (Bentyl 20mg Inj) 10:30 Metoclopramide 10 PHA 08/04/24 Complete Mg/2 Ml Vial (Reglan 1 10:30 Current Medications Medications (Trade) Dose Ordered Sig/Italo Route PRN Reason Start Time Stop Time Status Last Admin Dose Admin Dicyclomine HCl (Bentyl 20mg Inj) 10 mg ONCE ONCE IM 08/04/24 10:30 08/04/24 10:31 DC 08/04/24 10:35 Metoclopramide HCl (regLAN 10MG IV) 10 mg ONCE ONCE IVP 08/04/24 10:30 08/04/24 10:31 DC 08/04/24 10:34 Ondansetron HCl (zoFRAN 4MG INJ) 4 mg ONCE ONCE IVP 08/04/24 10:00 08/04/24 10:22 DC Vital Signs Date Time Temp Pulse Resp B/P (MAP) Pulse Ox O2 Delivery O2 Flow Rate FiO2 08/04/24 11:08 99.0 82 14 164/86 100 Room Air* 0 21 08/04/24 10:39 99.0 91 20 193/97 97 Room Air* 0 21 08/04/24 09:42 98.2 91 18 193/97 98 0 Medical Decision Making MDM Differential diagnosis : Dehydration, influenza, gastroparesis, acute kidney injury Rationale: Tests considered and ordered secondary to shared decision making include: I will re-evaluate the patient after treatment and diagnostic exams have returned to determine whether they require further testing, can be safely discharged home, or need admission for further treatment and evaluation. Given the social determinants of health affecting care, including literacy, access to medical care, prescription drug management, and [id number] drugs, I will ensure that treatment plans are tailored accordingly. There are no social concerns with this patient. Risk of complication and/or morbidity or mortality of patient management: None Need for hospitalization: Patient does not meet criteria for hospitalization. Need for emergency major/minor surgery: No Prescription drug management Prescriptions will include symptomatic care Medications-Per medication reconciliation Previous outside records reviewed: Old ER visits. Patient's prior external medical records from other ER visits were reviewed by me as indicated. Prior testing and results from previous visits were reviewed. Prior tests were taken into account with medical decision making and resource utilization, independent historian/historians were used to obtain complete medical history. I independently interpreted the test that were performed, results were reviewed by me and considered findings on radiology. Medical management and examination interpretation discussions was done by me with other qualified healthcare professionals as indicated for the patient's care. Revaluation: Patient with history of GBS, chronic kidney disease, diabetes, gastroparesis presents with features suggestive of acute influenza and gastroparesis. Patient is treated with IV Reglan, IV Bentyl . Her labs are relatively within normal limits. Serology positive for type a flu-her symptoms started on Saturday(4 days) , hence we will not be treating her with Tamiflu as she is already out of the recommended window for Tamiflu treatment. Encouraged her to take IV fluids once her vomiting subsides. Disposition : Discharge home DX & DISP Disposition: Discharge Departure Impression: Primary Impression: Influenza Additional Impressions: Gastroparesis due to DM, CKD (chronic kidney disease) Condition: Stable Additional Instructions: You are diagnosed with influenza. Take the medications as directed here in emergency room. Follow-up with primary care provider in 1-2 days It is okay to continue home medications unless otherwise discussed during your visit in the emergency room today. Increase oral hydration. Return to your nearest emergency room if symptoms worsen or if there is no improvement. Call 911 if you need immediate assistance. Referrals: MAICO POLLACK (PCP) I performed a substantive portion of the visit. I have reviewed and personally made and approve the management plan that is documented in the notes by myself with RAJAT/resident. I acknowledged full responsibility for the patient's management plan. GENNY CAZARES MD Aug 04, 2024 10:12 GONZALES BENNETT DO Aug 06, 2024 10:20
[2024-08-04 10:27] LABS: CREATININE 2.9 mg/dL (0.5-1.0); POTASSIUM 4.3 mmol/L (3.5-5.1)
[2024-08-04] MEDS: metoCLOPRAmide 10 MG/2 ML VIAL IVP ONE (10:34)
[2024-08-04] MEDS: DICYCLOMINE 20MG (10MG/ML) AMP IM ONE (10:35)
[2024-08-04 10:47] LABS: COVID19 (SARS ANTIGEN RAPID) PRESUMPTIVE NEGATIVE (NEGATIVE); INFLUENZA TYPE B Negative For Type B (NEGATIVE)
[2024-08-04 10:57] LABS: INFLUENZA TYPE A Positive For Type A (NEGATIVE)
[2024-08-04] MEDS ORDERED: METO-296 PO (11:00)
[2024-08-04 11:08] VITALS: BP 164/86; PULSE 82; RESP 14; TEMP 98.9; O2SAT 100
--- NOTE | 2024-08-04 11:08 | HMCIMG ---
CHEST 1VW HISTORY: Positive fluid COMPARISON: 01/17/2024 FINDINGS: A frontal projection of the chest was obtained. No acute pulmonary infiltrates is seen. The heart is normal in size. Prominent interstitial markings are seen. Degenerative changes are seen. No evidence of aortic calcification is seen. IMPRESSION: 1. No acute pulmonary infiltrate is seen.
--- NOTE | 2024-08-04 11:13 | NUR ---
PT AAOX3, VITALS ARE WNL, PT WALKING TO /FROM RESTROOM INDEPENDENTLY. PT EXPLAINED RESULTS BY DR. RAHMAN AT BEDSIDE. PT GIVEN INSTRUCTIONS FOR DISCARGE HOME VERBALIZED UNDERSTANDING. IV WAS REMOVED CATHETER INTACT.
--- NOTE | 2024-08-04 11:19 | NUR ---
PT TAKEN TO ER LOBBY BY W/C STATES SHE WILL CALL AN UBER TO PICK HER UP AND TAKE HER HOME.
[2024-08-05] MEDS ORDERED: METO5TAB2 PO (14:39)
== END 2024-08-04 11:31 | disposition home or self-care (01) ==
LOC: EEVIPCON 09:40 → EDH 09:40
DX: I12.9 Hypertensive chronic kidney disease with stage 1 through stage 4 chronic kidney disease, or unspecified chronic kidney disease (principal); E10.22 Type 1 diabetes mellitus with diabetic chronic kidney disease; N18.9 Chronic kidney disease, unspecified; J11.1 Influenza due to unidentified influenza virus with other respiratory manifestations; K31.84 Gastroparesis; E10.43 Type 1 diabetes mellitus with diabetic autonomic (poly)neuropathy; Z90.49 Acquired absence of other specified parts of digestive tract; Z90.89 Acquired absence of other organs; Z20.822 Contact with and (suspected) exposure to COVID-19
CPT/HCPCS: 99284; 96374; 71045; 87426; 80048; 85025; 87804 ×2; 83605; 36415; 96372; 84145; J0500; J2765

== ENCOUNTER 2024-08-05 01:14 | Emergency (ER) | payer MEDICAID ==
[~2024-08-05] VITALS: Ht 165.1 cm; Wt 59.0 kg
[~2024-08-05 01:14] MED LIST changes: +METO-296 PO
--- NOTE | 2024-08-05 01:24 | ERN ---
General Chief Complaint: Nausea,Vomiting,Diarrhea Stated Complaint: NAUSEA/VOMITING Time Seen by MD: 01:18 Source: patient History of Present Illness Initial Comments Patient is a 33 year old female with intractable nausea and vomiting. She was diagnosed with the flu few days ago. Past medical history is diabetes and Guillain-R[place] syndrome. She has no other systemic symptoms, afebrile normal blood pressure no difficulty urinating normal bowel movements. Allergies: Coded Allergies: No Known Allergies (Unverified Allergy, Unknown, 04/24/22) Home Meds Active Scripts Metoclopramide HCl (Reglan) 10 Mg Tablet, 1 TAB PO BID PRN for vomiting for 3 Days, #6 TAB 0 Refills before food and bedtime Prov:GENNY CAZARES MD 08/04/24 Nitrofurantoin/Nitrofuran Mac (Macrobid) 100 Mg Cap, 1 CAP PO BID for 5 Days, #10 CAP 0 Refills Prov:LELO BRINK 06/13/24 Ondansetron (Ondansetron Odt) 4 Mg Tab.rapdis, 4 MG PO Q6HPRN PRN for nausea, #16 TAB 0 Refills Prov:TONIE KAHN NP 03/05/24 Reported Medications Metoclopramide HCl (Reglan) 5 Mg Tab, 5 MG PO BIDAC, TAB 04/18/24 Past Medical History Past Medical History: Diabetes-Type I, Hypotension, Other Medical History Other: CUENCA BARRE Past Surgical History: Tonsillectomy, Cholecystectomy, Surgical History Other: EYE SURGERY Family History Family History: Negative Social History Social History: Drugs, Negative Female( History) History: Not Applicable : 4 Para: 2 Aborts: 2 Constitutional: (-) chills, (-) diaphoresis, (-) fever, (-) malaise, (-) weakness, (-) other documentation EENTM: (-) eye pain, (-) blurred vision, (-) tearing, (-) double vision, (-) ear pain, (-) ear discharge, (-) nose pain, (-) nose congestion, (-) throat pain, (-) Throat swelling, (-) mouth pain, (-) tooth pain, (-) mouth swelling, (-) other documentation Respiratory: (-) cough, (-) orthopnea, (-) short of breath, (-) stridor, (-) wheezing, (-) other documentation Cardiovascular: (-) chest pain, (-) edema, (-) palpitations, (-) syncope, (-) dyspnea on exertion, (-) other documentation Genitourinary: (-) vaginal discharge, (-) vaginal bleeding, (-) dysuria, (-) frequency, (-) hematuria, (-) pain, (-) other documentation Musculoskeletal: (-) Neck pain, (-) back pain, (-) Flank Pain, (-) joint pain, (-) joint swelling, (-) muscle pain, (-) muscle stiffness, (-) gout, (-) other documentation Skin: (-) laceration, (-) contusion, (-) abrasion, (-) abscess, (-) rash, (-) change in color, (-) change in hair, (-) change in nails, (-) diaphoresis, (-) dryness, (-) other documentation Neuro: (-) altered mental status, (-) headache, (-) syncope, (-) paralysis, (-) numbness, (-) seizure, (-) pre-existing deficit, (-) tremors, (-) weakness, (-) dizziness, (-) slurred speech, (-) vertigo, (-) other documentation Physical Exam General Appearance: (+) moderate distress Orientation: (+) alert Head/Face Trauma: No Eye: bilateral eye normal inspection, bilateral eye PERRL, bilateral eye EOMI Ear, Nose, Throat: (+) hearing grossly normal, (+) normal ENT inspection Neck: (+) normal inspection, (+) supple Respiratory: (+) chest non-tender, (+) lungs clear, (+) well ventilated Heart: (+) regular, (+) murmur Vascular: (+) no edema Gastrointestinal: (+) soft, (+) non-tender, (+) bowel sound present Extremities: (+) normal range of motion, (+) normal inspection MDM Patient comes with intractable nausea and vomiting she has a history of Guillain-[place] syndrome, which according to her as manifested by gastrointestinal symptoms of extreme nausea and vomiting. She has been admitted before with this condition and she finds that two doses of Phenergan Protonix and fluid usually make her feel better her pain medicine of choices morphine. These symptoms could also be due to her flu. In either case I will give her some Protonix some Phenergan some fluid and some morphine. The patient's condition has improved with the Phenergan and the Protonix as well as a GI cocktail and fluid and two doses of Phenergan. Her pain required fentanyl as well as morphine I think we will be able to discharge her. Patient's symptoms have finally subsided she is very comfortable and resting and feels comfortable leaving and going home. ED Course Orders Procedure Category Date Status Time Morphine 4mg Syg PHA 08/05/24 Complete (Morphine 4mg Syg) 01:30 Pantoprazole 40mg Inj PHA 08/05/24 Complete (Protonix 40mg Inj 01:30 0.9%Nacl 1000ml (Ns PHA 08/05/24 Complete 1000ml) 01:30 Lidocaine Hcl 2% PHA 08/05/24 Complete Viscous (Lidocaine Hcl 02:30 Mag/Alum/Simeth 30ml PHA 08/05/24 Complete (Maalox Plus 30ml) 02:30 Dicyclomine Hcl PHA 08/05/24 Complete (Bentyl 10mg/5ml 02:30 Fentanyl Citrate Pf PHA 08/05/24 Complete 0.05 Mg/Ml (Fentanyl 02:30 Pharmacy PHA 08/05/24 Complete Communication 02:30 Promethazine Hcl PHA 08/05/24 Complete (Phenergan) 03:00 Promethazine Hcl PHA 08/05/24 Complete (Phenergan) 03:00 Current Medications Medications (Trade) Dose Ordered Sig/Italo Route PRN Reason Start Time Stop Time Status Last Admin Dose Admin Al Hydroxide/Mg Hydroxide (MAALox PLUS 30ML) 30 ml ONCE ONCE PO 08/05/24 02:30 08/05/24 02:32 DC 08/05/24 03:46 Dicyclomine HCl (Bentyl 10mg/5ml Syrup) 10 mg ONCE ONCE PO 08/05/24 02:30 08/05/24 02:32 DC 08/05/24 03:46 Fentanyl Citrate (FENTanyl CITRate PF 50 MCG/ 1 ML 2ML VIAL) 100 mcg ONCE ONCE IVP 08/05/24 02:30 08/05/24 02:32 DC 08/05/24 02:38 Lidocaine HCl (Lidocaine HCl 2% Viscous) 10 ml ONCE ONCE PO 08/05/24 02:30 08/05/24 02:32 DC 08/05/24 03:46 Morphine Sulfate (morPHINE 4MG SYG) 4 mg ONCE ONCE IVP 08/05/24 01:30 08/05/24 01:31 DC 08/05/24 01:56 Pantoprazole Sodium (PROTonix 40MG INJ) 40 mg ONCE ONCE IVP 08/05/24 01:30 08/05/24 01:31 DC 08/05/24 01:56 Pharmacy Profile Note (Pharmacy Communication) 1 each ONCE MISC 08/05/24 02:30 08/05/24 02:32 DC Promethazine HCl (Phenergan) 25 mg ONCE ONCE IM 08/05/24 03:00 08/05/24 03:01 DC 08/05/24 02:38 Promethazine HCl (Phenergan) 25 mg Q4H PRN IM NAUSEA/VOMITING 08/05/24 03:00 08/05/24 02:32 DC Sodium Chloride 1,000 ml @ 0 mls/hr ONCE ONCE IV 08/05/24 01:30 08/05/24 01:31 DC 08/05/24 01:56 Vital Signs Date Time Temp Pulse Resp B/P (MAP) Pulse Ox O2 Delivery O2 Flow Rate FiO2 08/05/24 01:15 98.1 95 16 125/85 98 Room Air 0 DX & DISP Disposition: Discharge Departure Impression: Primary Impression: Guillain Bernard syndrome Condition: Stable Referrals: MAICO POLLACK (PCP) CHAS LOPEZ MD Aug 05, 2024 01:24
[2024-08-05] MEDS: PANTOPrazole 40 MG/VIAL IVP ONE (01:56)
[2024-08-05] MEDS: 0.9%NACL 1000ML 1,000 ML IV ONE (01:56)
[2024-08-05] MEDS: morPHINE 4 MG SYG IVP ONE (01:56)
[2024-08-05] MEDS ORDERED: PHARMACY COMMUNICATION MISC SCH (02:30)
[2024-08-05] MEDS: PROMETHAZINE HCL 25 MG/ML 1ML AMPULE IM ONE (02:38)
[2024-08-05] MEDS: FENTanyl CITRate PF 50 MCG/1 ML 2ML VIAL IVP ONE (02:38)
[2024-08-05] MEDS ORDERED: PROMETHAZINE HCL 25 MG/ML 1ML AMPULE IM PRN (03:00)
[2024-08-05] MEDS: MAG/ALUM/SIMETH 30 ML UDCUP PO ONE (03:46)
[2024-08-05] MEDS: LIDOCAINE HCL 2% VISCOUS 15 ML UDCUP PO ONE (03:46)
[2024-08-05] MEDS: DICYCLOMINE HCL 10 MG/5 ML ML PO ONE (03:46)
--- NOTE | 2024-08-05 06:32 | NUR ---
DISCHARGE PENDING RIDE
[2024-08-05 08:00] VITALS: BP 164/101; PULSE 90; RESP 18; TEMP 98.4; O2SAT 99
[2024-08-05] MEDS ORDERED: METO5TAB2 PO (14:39)
== END 2024-08-05 07:59 | disposition home or self-care (01) ==
LOC: EDH 01:14
DX: G61.0 Guillain-Barre syndrome (principal); E11.9 Type 2 diabetes mellitus without complications; Z90.49 Acquired absence of other specified parts of digestive tract; Z90.89 Acquired absence of other organs
CPT/HCPCS: 99284; 96361; 96374; 96375; 82948; 96372; J3010; J7030; J2550; J2270; J2470

== ENCOUNTER 2024-11-15 04:17 | Emergency (ER) | payer MEDICAID ==
[~2024-11-15] VITALS: Ht 144.8 cm; Wt 51.3 kg
[~2024-11-15 04:17] MED LIST changes: -MACR100 PO; -METO-296 PO; -METO5 PO; +METO5TAB2 PO
--- NOTE | 2024-11-15 04:48 | ERN ---
ED Note History of Present Illness Stated Complaint: DIFFUSE ABDOMINAL PAIN, VOMITING Chief Complaint: Abdominal Pain Time Seen by MD: 04:33 Dictation: This is a 33-year-old female who presented to the emergency room with complaints of diffuse abdominal pain nausea vomiting . Patient stated that she mainly came into the ER for pain medications. 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 Her primary care physician apparently prescribed medical marijuana. Patient gets marijuana from [employer] and smokes the thomason 3 to 4 times a day. 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 Patient apparently has a crampy abdominal pain and at least 20+ episodes of vomitings in the past 24 hours. She took 12 mg of Zofran and Tylenol 800 mg and despite that her symptoms persisted She used to take gabapentin but claims that it was responsible for breakage of her teeth Temperature 97.8 pulse 81 respirations 16 blood pressure 139/81 with a pulse oximetry of 98% on room air Chronic medical problems include diabetes mellitus, Guillain-Oneida syndrome, chronic cannabis dependence, chronic pain syndrome with opioid dependence Allergies: Coded Allergies: No Known Allergies (Unverified Allergy, Unknown, 04/24/22) Home Meds Active Scripts Ondansetron (Ondansetron Odt) 4 Mg Tab.rapdis, 4 MG PO Q6HPRN PRN for nausea, #16 TAB 0 Refills Prov:TONIE KAHN SKATING RINK MANAGER 03/05/24 Reported Medications Metoclopramide HCl (Metoclopramide HCl) 5 Mg Tablet, 5 MG PO TIDAC, TAB 08/05/24 Past Medical History Past Medical History: Diabetes-Type II, Other 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 Surgical History: Tonsillectomy, Cholecystectomy, Surgical History Other: EYE SURGERY Family History: Negative Social History: Drugs, Negative History: Not Applicable : 4 Para: 2 Aborts: 2 RN Note Reviewed/Agreed w/PFSH: Yes Review of System Dictation Constitutional: Negative for fever,chills, and weight loss Eyes: Negative for injury, pain,redness, and discharge ENT: Negative for injury,pain or swelling Cardiovascular: Negative for chest pain, palpitations, and edema Respiratory: Negative for shortness of breath, cough, and wheezing, Abdomen/GI: Positive for abdominal pain, nausea, vomiting, diarrhea, Back: Negative for injury and pain : Negative for injury, bleeding and discharge MS/Extremity: Negative for injury and deformity Skin: Negative for rash, and discoloration Neuro: Negative for headache, weakness, numbness, tingling, and seizure Psych: Negative for suicide ideation, homicidal ideation, and hallucinations Initial Vital Sign VS Vital Signs Date Time Temp Pulse Resp B/P (MAP) Pulse Ox O2 Delivery O2 Flow Rate FiO2 11/15/24 04:18 97.9 81 16 139/81 97 Room Air 0 11/15/24 04:41 21 Physical Exam Dictation General: awake, alert, NAD Head/Face: Normocephalic, atraumatic Eyes: PERRL, EOMI, vision at baseline ENT: oral cavity clear, TMs clear, no signs of infection Neck: Trachea midline, supple, no nuchal rigidity Cardiovascular: RRR, normal S1/S2, No MRGs, no JVD Respiratory: CTAB, no respiratory distress, No rales or wheezes Abdomen: Soft, non-tender, non-distended, normal bowel sounds, no guarding or rebound. Skin: Warm, dry, normal turgor, no rash MS/Extremity: Pulses equal, no cyanosis, neurovascular intact, FROM Neuro: COAx4, GCS 15, strength 5/5, CN 2-12 intact, normal cerebellar exam, normal gait, Psych: Normal behavior, mood, and affect normal Extremities-trace edema without any palpable cords, Homans sign is negative Results (Laboratory/Radiology) Laboratory/Radiology Laboratory Tests Test 11/15/24 05:25 White Blood Count 6.8 K/uL (4.8-10.8) Red Blood Count 3.55 MIL/uL (4.00-5.50) L Hemoglobin 10.9 g/dL (12.0-16.0) L Hematocrit 30.2 % (36-48) L Mean Corpuscular Volume 85.1 fL (79-99) Mean Corpuscular Hemoglobin 30.7 pg (27.0-33.0) Mean Corpuscular Hemoglobin Concent 36.1 g/dL (32.0-36.0) H Red Cell Distribution Width 12.0 % (11.0-15.5) Platelet Count 330 K/uL (130-400) Mean Platelet Volume 10.1 fL (7.5-10.5) Immature Granulocyte % (Auto) 0.1 % (0-1) Neutrophils (%) (Auto) 40.6 % (40.0-77.0) Lymphocytes (%) (Auto) 44.0 % (21.0-51.0) Monocytes (%) (Auto) 6.1 % (3.0-13.0) Eosinophils (%) (Auto) 8.0 % (0.0-8.0) Basophils (%) (Auto) 1.2 % (0.0-5.0) Neutrophils # (Auto) 2.7 K/uL (1.8-7.7) Lymphocytes # (Auto) 3.0 K/uL (1.0-4.8) Monocytes # (Auto) 0.4 K/uL (0.1-1.0) Eosinophils # (Auto) 0.54 K/uL (0.00-0.70) Basophils # (Auto) 0.08 K/uL (0.00-0.20) Absolute Immature Granulocyte (auto 0.01 K/uL (0-1) Nucleated Red Blood Cells 0.0 % (0.0-0.19) Red Blood Cell Morphology See comments Sodium Level 137 mmol/L (136-145) Potassium Level 3.5 mmol/L (3.5-5.1) Chloride Level 98 mmol/L (101-111) L Carbon Dioxide Level 30 mmol/L (21-32) Blood Urea Nitrogen 48 mg/dL (7-18) H Creatinine 3.7 mg/dL (0.5-1.0) H Glomerular Filtration Rate Calc 16 mL/min (>90) Random Glucose 79 mg/dL (70-105) Total Calcium 9.2 mg/dL (8.5-10.1) Human Chorionic Gonadotropin, Quant 0 mIU/mL (0-5) Labs Reviewed?: Yes CT Scan Comment: REASON: n/v/ diffused abd pain ORDERING PHYSICIAN: LELO BRINK PROCEDURE: ABD PEL WO - CT ABDOMEN/PELVIS W/O CONTRAST Exam Type: CT ABDOMEN/PELVIS W/O CONTRAST Clinical Information: n/v/ diffused abd pain Comparison: None CT Dose Index (CTDI): 10.20 mGy Dose Length Product (DLP): 530.00 total mGy-cm PROTOCOL: Routine noncontrast helical scanning of the abdomen and pelvis was performed at 5mm collimation. Findings: Bilateral tiny, 1 to 2 mm renal calculi are seen. There is no hydronephrosis. No worrisome renal masses are seen. The lung bases are clear. The stomach is unremarkable. It shows no wall thickening. No gross ulceration is seen. It is not overly distended. There are no surrounding inflammatory changes. No wall lesions are identified to suggest cancer. The spleen is unremarkable. It is not enlarged. The pancreas shows normal anatomy. It is not fatty replaced. It shows no lesions. The pancreatic duct is not dilated. The gallbladder is surgically absent. The adrenal glands are unremarkable. There is no enlargement. No lesions are noted. The liver is unremarkable. It shows no focal masses. The appendix is unremarkable. It shows no evidence of inflammation. No appendicolith is seen. The small bowel is unremarkable. There is no evidence of dilatation to suggest obstruction. No evidence of adynamic ileus is seen. There is no small bowel wall thickening to suggest enteritis. The colon is unremarkable. The urinary bladder is unremarkable. There is no wall thickening to suggest tumor or inflammation. There are no intraluminal calculi. There are no diverticula. There is no evidence of chronic bladder outlet obstruction. There is no evidence of urinary bladder distention to suggest urinary retention. The other pelvic structures are unremarkable. The bony and vascular structures are unremarkable for the patient's age. IMPRESSION: Status post cholecystectomy. Bilateral nonobstructing nephrolithiasis. This study was performed using dose reduction techniques to include automated exposure control and/or adjustment of the mA and/or kV according to patient size. DICTATED BY: MERYL AYOUB MD DATE: 10/24/24 1705 ELECTRONICALLY SIGNED BY: MERYL AYOUB MD DATE: 11/03/24 5618 ED Course ED Course Orders Procedure Category Date Status Time Prochlorperazine PHA 11/15/24 Complete 10mg/2ml Inj 05:00 Morphine 4mg Syg PHA 11/15/24 Complete (Morphine 4mg Syg) 05:00 0.9%Nacl 1000ml (Ns PHA 11/15/24 Complete 1000ml) 05:00 Cbc With Differential LAB 11/15/24 Complete 04:48 Basic Metabolic Panel LAB 11/15/24 Complete 04:48 Hcg,Quantitative LAB 11/15/24 Complete 04:48 Current Medications Medications (Trade) Dose Ordered Sig/Italo Route PRN Reason Start Time Stop Time Status Last Admin Dose Admin Morphine Sulfate (morPHINE 4MG SYG) 4 mg ONCE ONCE IVP 11/15/24 05:00 11/15/24 05:01 DC 11/15/24 05:27 Prochlorperazine Edisylate (Compazine 10mg/ 2ml Inj) 10 mg ONCE ONCE IV 11/15/24 05:00 11/15/24 05:01 DC 11/15/24 05:22 Sodium Chloride 1,000 ml @ 0 mls/hr ONCE ONCE IV 11/15/24 05:00 11/15/24 05:01 DC 11/15/24 05:26 Vital Signs Date Time Temp Pulse Resp B/P (MAP) Pulse Ox O2 Delivery O2 Flow Rate FiO2 11/15/24 06:43 74 10 96/58 98 Room Air* 0 21 11/15/24 05:20 80 15 113/73 98 Room Air* 0 21 11/15/24 04:41 98.2 79 9 118/72 98 Room Air* 0 21 11/15/24 04:18 97.9 81 16 139/81 97 Room Air 0 We will and administer medications according to the patient's complaint. Once the results are available, will review and personally interpreted the labs to rule out any acute life-threatening emergency the trach require immediate intervention and treatment. I will then re-evaluate the patient after treatment and diagnostic exams have return to determine whether the patient requires any further testing, can safely be discharged home or need further admission to hospital for additional treatment and evaluation. Medical Decision Making MDM MDM: Differential diagnosis:drug seeking behavior, gastroparesis, hx of Guillain- Oneida Rationale: Tests considered and ordered secondary to shared decision making include: Previous outside records reviewed: Old ER visits. Risk of complication and/or morbidity or mortality of patient management: None Medications-Per medication reconciliation Need for hospitalization: Patient does not meet criteria for hospitalization. Patient is a 34-year-old female coming in complaining of abdominal discomfort. Per patient she does has a history of gastroparesis and frequently presents with these symptoms. Patient received morphine by outgoing physician with the pressure mildly low was hydrated with IV fluids. Patient will be discharged in stable condition with a diagnosis is drug-seeking behavioral because per patient in the helps her with the pain is morphine. Problem List Problem List: (1) Cannabis hyperemesis syndrome concurrent with and due to cannabis dependence (2) Diabetes mellitus with hyperglycemia (3) Nausea & vomiting (4) CKD (chronic kidney disease) (5) Guillain Bernard syndrome DX & DISP Disposition: Discharge Departure Impression: Primary Impression: Cannabis hyperemesis syndrome concurrent with and due to cannabis dependence Additional Impressions: Nausea & vomiting, Drug-seeking behavior, Gastroparesis due to DM Condition: Stable Additional Instructions: FOLLOW-UP WITH PRIMARY CARE PROVIDER IN 1 TO 2 DAYS. TAKE MEDICATIONS DIRECTED HERE IN THE EMERGENCY ROOM. OKAY TO CONTINUE HOME MEDICATIONS UNLESS OTHERWISE DISCUSSED DURING YOUR VISIT IN THE EMERGENCY ROOM TODAY. RETURN TO YOUR NEAREST EMERGENCY ROOM IF SYMPTOMS WORSEN OR IF THERE IS NO IMPROVEMENT. CALL 911 IF YOU NEED IMMEDIATE ASSISTANCE. TAKE TYLENOL [id number] NEEDED AND IF NO CONTRAINDICATIONS ARE PRESENT. INCREASE ORAL HYDRATION. A WOUND CULTURE OR URINE CULTURE WAS ORDERED HERE IN THE EMERGENCY ROOM DEPARTMENT PLEASE FOLLOW-UP WITH PRIMARY CARE PROVIDER AND ADVISE THEM TO GET REPORTS FROM OUR FACILITY. IF YOU HAD ANY ALIDA WRAP/SPLINTS THAT WERE APPLIED HERE, PLEASE DO NOT REMOVE THEM UNTIL YOU SEE YOUR PRIMARY CARE OR SPECIALTY. Referrals: Referrals: MAICO POLLACK (PCP) Time of Disposition: 08:36 JYOTI SPEAR MD Nov 15, 2024 04:47 DUC FAULKNER MD Nov 15, 2024 08:39
[2024-11-15] MEDS: PROCHLORPERAZINE 10MG/2ML INJ IV ONE (05:22)
[2024-11-15] MEDS: 0.9%NACL 1000ML 1,000 ML IV ONE (05:26)
[2024-11-15 05:50] LABS: IMMATURE GRANULOCYTE ABSOLUTE 0.01 K/uL (0-1); NUCLEATED RED BLOOD CELLS 0.0 % (0.0-0.19); PLATELET COUNT (AUTO) 330 K/uL (130-400); RED BLOOD CELL COUNT(AUTO) 3.55 MIL/uL (4.00-5.50); RED CELL DISTRIBUTION WIDTH 12.0 % (11.0-15.5); WHITE BLOOD COUNT (AUTO) 6.8 K/uL (4.8-10.8)
[2024-11-15 06:30] LABS: CREATININE 3.7 mg/dL (0.5-1.0); GLOMERULAR FILTR. RATE CALC 16.0 mL/min (>90); GLUCOSE,RANDOM 79.0 mg/dL (70-105); HCG,QUANTITATIVE 0.0 mIU/mL (0-5); SODIUM SERUM 137.0 mmol/L (136-145); UREA NITROGEN, BLOOD 48.0 mg/dL (7-18)
--- NOTE | 2024-11-15 07:12 | NUR ---
REPORT GIVEN TO LUCIEN GARCIA AT THIS TIME
[2024-11-15 09:20] VITALS: BP 131/71; PULSE 68; RESP 10; TEMP 98.7; O2SAT 98
--- NOTE | 2024-11-15 09:25 | NUR ---
Patient given discharge orders. No new prescriptions given. Discussed the importance of following up with PCP in 2-3 days. Patient verbalized understanding. Removed IV access.
== END 2024-11-15 09:20 | disposition home or self-care (01) ==
LOC: EDH 04:17
DX: F12.20 Cannabis dependence, uncomplicated (principal); R11.2 Nausea with vomiting, unspecified; K31.84 Gastroparesis; Z76.5 Malingerer [conscious simulation]; E11.43 Type 2 diabetes mellitus with diabetic autonomic (poly)neuropathy; R10.2 Pelvic and perineal pain; Z90.49 Acquired absence of other specified parts of digestive tract; Z90.89 Acquired absence of other organs
CPT/HCPCS: 99285; 96374; 96361; 96375; 80048; 84702; 85025; 36415; J7030; J0780; J2270

== ENCOUNTER 2024-12-04 18:57 | Emergency (ER) | payer MEDICAID ==
[~2024-12-04] VITALS: Ht 144.8 cm; Wt 51.3 kg
--- NOTE | 2024-12-04 19:08 | NUR ---
UA CUP PROVIDED
[2024-12-04 19:38] LABS: IMMATURE GRANULOCYTE ABSOLUTE 0.01 K/uL (0-1); NUCLEATED RED BLOOD CELLS 0.0 % (0.0-0.19); PLATELET COUNT (AUTO) 337 K/uL (130-400); RED BLOOD CELL COUNT(AUTO) 3.99 MIL/uL (4.00-5.50); RED CELL DISTRIBUTION WIDTH 11.9 % (11.0-15.5); WHITE BLOOD COUNT (AUTO) 7.9 K/uL (4.8-10.8)
[2024-12-04 19:49] LABS: CREATININE 3.9 mg/dL (0.5-1.0); GLOMERULAR FILTR. RATE CALC 15.0 mL/min (>90); GLUCOSE,RANDOM 114.0 mg/dL (70-105); SODIUM SERUM 139.0 mmol/L (136-145); UREA NITROGEN, BLOOD 48.0 mg/dL (7-18)
[2024-12-04 19:54] LABS: ASPARTATE AMINOTRANSFERASE 16.0 U/L (10-37); TOTAL PROTEIN, SERUM 8.9 g/dL (6.0-8.3)
--- NOTE | 2024-12-04 20:08 | ERN ---
General Chief Complaint: Nausea,Vomiting,Diarrhea Stated Complaint: VOMITING NON STOP Time Seen by MD: 19:01 Time Seen by Midlevel: 19:01 Source: patient History of Present Illness Initial Comments This is a 34-year-old female with a past medical history of chronic kidney disease presenting to the emergency department for evaluation of nausea and vomiting. Patient reports starting her menstrual cycle on November 30, 2024. She states that every time she gets her. She has similar episodes like today. She reports an unknown number of vomiting with associated loose stools. She was seen in our emergency department last month for the same complaints and was ultimately discharged home Allergies: Coded Allergies: No Known Allergies (Unverified Allergy, Unknown, 04/24/22) Home Meds Active Scripts Ondansetron (Ondansetron Odt) 4 Mg Tab.rapdis, 4 MG PO Q6HPRN PRN for nausea, #16 TAB 0 Refills Prov:TONIE KAHN UTILITY TECHNICIAN 03/05/24 Reported Medications Metoclopramide HCl (Metoclopramide HCl) 5 Mg Tablet, 5 MG PO TIDAC, TAB 08/05/24 Past Medical History Past Medical History: Diabetes-Type II, Hypotension, Other Medical History Other: GUILLIAN BARRE SYNDROME Past Surgical History: Tonsillectomy, Cholecystectomy, Surgical History Other: EYE SURGERY Family History Family History: Negative Social History Social History: Drugs, Negative Female( History) History: Not Applicable LMP: Nov 30, 2024 : 4 Para: 2 Aborts: 2 ROS Dictation CONSTITUTIONAL: Negative except for HPI HEAD/FACE: Negative except for HPI EENT: Negative except for HPI RESPIRATORY: Negative except for HPI GASTROINTESTINAL/ABDOMINAL: Negative except for HPI GENITOURINARY: Negative except for HPI MUSCULOSKELETAL: Negative except for HPI INTEGUMENTARY: Negative except for HPI NEUROLOGICAL/PSYCH: Negative except for HPI HEMATOLOGIC/LYMPHATIC: Negative except for HPI All Systems Negative, Except as noted above. 13 point review of systems assessed and all negative except for above. Physical Exam Physical Exam Dictation Vital Signs reviewed General Appearance: Alert, oriented x 3, no acute distress, well developed, nourished. Head and Face: non-traumatic. Eyes: PERRL, pink conjunctivas, eyelid no trauma, anterior chamber with arcus senilis. Ears: Pinnas intact and no signs of trauma or erythema ear canals clear and no discharge TM no erythema Nose: No discharge, no bleeding. Oropharynx: Mouth normal, tongue pink, pharynx clear,no erythema, tonsils no exudates, no abscesses noted, mucous membrane moist Neck: Supple, non-tender, no thyromegaly, no masses, no JVD, no bruits Breast:Deferred Chest:No tenderness, no crepitus, no paradoxical movement, no retractions Lungs:Clear, well-ventilated, symmetric, no rales, no wheezing, no rhonchi, no stridor, good breath sounds bilaterally Heart: Regular rate, regular rhythm, no murmur, no gallops Vascular: no peripheral edema, Abdomen: Soft, positive bowel sounds, nondistended, no guarding, nontender, no rebound, no masses no hepatomegaly, no splenomegaly, no Reece's sign, no hernias. Rectal: Deferred Genital: Deferred Neurological: Normal speech, motor function intact, sensory function intact Musculoskeletal: Neck nontender, full range of motion, back nontender, full range of motion, Extremities: nontender, full range of motion Skin: Color pink, dry, no turgor, no rash, no lacerations, no abrasions, no contusions. Lymphatic: Deferred Results Laboratory and Microbiology Lab and Micro Result Laboratory Tests Test 12/04/24 19:30 White Blood Count 7.9 K/uL (4.8-10.8) Red Blood Count 3.99 MIL/uL (4.00-5.50) L Hemoglobin 12.0 g/dL (12.0-16.0) Hematocrit 35.1 % (36-48) L Mean Corpuscular Volume 88.0 fL (79-99) Mean Corpuscular Hemoglobin 30.1 pg (27.0-33.0) Mean Corpuscular Hemoglobin Concent 34.2 g/dL (32.0-36.0) Red Cell Distribution Width 11.9 % (11.0-15.5) Platelet Count 337 K/uL (130-400) Mean Platelet Volume 9.6 fL (7.5-10.5) Immature Granulocyte % (Auto) 0.1 % (0-1) Neutrophils (%) (Auto) 53.1 % (40.0-77.0) Lymphocytes (%) (Auto) 34.8 % (21.0-51.0) Monocytes (%) (Auto) 5.1 % (3.0-13.0) Eosinophils (%) (Auto) 5.6 % (0.0-8.0) Basophils (%) (Auto) 1.3 % (0.0-5.0) Neutrophils # (Auto) 4.2 K/uL (1.8-7.7) Lymphocytes # (Auto) 2.8 K/uL (1.0-4.8) Monocytes # (Auto) 0.4 K/uL (0.1-1.0) Eosinophils # (Auto) 0.44 K/uL (0.00-0.70) Basophils # (Auto) 0.10 K/uL (0.00-0.20) Absolute Immature Granulocyte (auto 0.01 K/uL (0-1) Nucleated Red Blood Cells 0.0 % (0.0-0.19) Sodium Level 139 mmol/L (136-145) Potassium Level 5.1 mmol/L (3.5-5.1) Chloride Level 100 mmol/L (101-111) L Carbon Dioxide Level 32 mmol/L (21-32) Blood Urea Nitrogen 48 mg/dL (7-18) H Creatinine 3.9 mg/dL (0.5-1.0) H Glomerular Filtration Rate Calc 15 mL/min (>90) Random Glucose 114 mg/dL (70-105) H Total Calcium 9.8 mg/dL (8.5-10.1) Total Bilirubin 0.3 mg/dL (0.2-1.0) Direct Bilirubin 0.1 mg/dL (0.0-0.3) Aspartate Amino Transf (AST/SGOT) 16 U/L (10-37) Alanine Aminotransferase (ALT/SGPT) 14 U/L (12-78) Alkaline Phosphatase 71 U/L (50-136) Total Protein 8.9 g/dL (6.0-8.3) H Albumin 4.5 g/dL (3.5-5.0) Lipase 83 U/L (16-77) H Serum Test, Qualitative NEGATIVE (NEGATIVE) Labs Reviewed?: Yes MDM MDM: Differential diagnosis: Dehydration, DKA, electrolyte abnormality There are no social concerns with this patient. Prescription drug management Prescriptions will include: None Medical management and examination interpretation discussions were had by me with other qualified healthcare professionals as indicated for the patient's care. ED Course Orders Procedure Category Date Status Time Cbc With Differential LAB 12/04/24 Complete 19:07 Basic Metabolic Panel LAB 12/04/24 Complete 19:07 Hepatic Function Panel LAB 12/04/24 Complete 19:07 Lipase LAB 12/04/24 Complete 19:07 Testing, LAB 12/04/24 Complete Serum Hcg 19:07 Morphine 2mg Syg PHA 12/04/24 Complete (Morphine 2mg Syg) 19:30 Ondansetron 4mg Inj PHA 12/04/24 Complete (Zofran 4mg Inj) 19:30 0.9%Nacl 1000ml (Ns PHA 12/04/24 Complete 1000ml) 19:30 Current Medications Medications (Trade) Dose Ordered Sig/Italo Route PRN Reason Start Time Stop Time Status Last Admin Dose Admin Morphine Sulfate (morPHINE 2MG SYG) 2 mg ONCE ONCE IVP 12/04/24 19:30 12/04/24 19:31 DC Ondansetron HCl (zoFRAN 4MG INJ) 4 mg ONCE ONCE IVP 12/04/24 19:30 12/04/24 19:31 DC Sodium Chloride 1,000 ml @ 0 mls/hr ONCE ONCE IV 12/04/24 19:30 12/04/24 19:31 DC Vital Signs Date Time Temp Pulse Resp B/P (MAP) Pulse Ox O2 Delivery O2 Flow Rate FiO2 12/04/24 19:01 97.3 91 20 105/69 100 Room Air DX & DISP Disposition: Discharge Departure Impression: Primary Impression: Acute on chronic renal insufficiency Additional Impression: Cyclic vomiting syndrome Condition: Stable Referrals: KENY FOLEY (PCP) I have reviewed the case, and I agree with, Diagnosis and Plan I performed the substantive portion of the visit. I have reviewed and personally made and approve the management plan that is documented in the note by myself or the RAJAT. I acknowledge for responsibility for the patient's management plan. LELO BRINK Dec 04, 2024 20:08
[2024-12-04] MEDS: 0.9%NACL 1000ML 1,000 ML IV ONE (20:35)
[2024-12-04] MEDS: MAG/ALUM/SIMETH 30 ML UDCUP PO ONE (21:08)
[2024-12-04] MEDS: LIDOCAINE HCL 2% VISCOUS 15 ML UDCUP PO ONE (21:08)
[2024-12-04] MEDS: PROMETHAZINE HCL 25 MG/ML 1ML AMPULE IM ONE (21:09)
[2024-12-04 21:37] VITALS: BP 112/65; PULSE 80; RESP 16; TEMP 98.1; O2SAT 98
== END 2024-12-04 21:50 | disposition home or self-care (01) ==
LOC: EDH 18:57
DX: E11.22 Type 2 diabetes mellitus with diabetic chronic kidney disease (principal); N18.9 Chronic kidney disease, unspecified; Z90.49 Acquired absence of other specified parts of digestive tract; Z90.89 Acquired absence of other organs
CPT/HCPCS: 99284; 96374; 96375; 80076; 80048; 84703; 83690; 85025; 36415; 96376; 96372; J2270 ×2; J7030; J2550; J2405

== ENCOUNTER 2024-12-27 07:53 | Emergency (ER) | payer MEDICAID ==
[~2024-12-27] VITALS: Ht 144.8 cm; Wt 51.3 kg
--- NOTE | 2024-12-27 08:25 | HMCIMG ---
EXAM: CR Chest, 1 View. CLINICAL HISTORY: [facility] COMPARISON: 08/04/2024. FINDINGS: LUNGS: The lungs show no infiltrate or other acute finding. PLEURAL SPACES: No evidence of pleural effusion or pneumothorax. MEDIASTINUM: The cardiomediastinal silhouette is within normal limits. BONES: No acute osseous abnormality. IMPRESSION: No acute cardiopulmonary pathology is evident. /[place]
[2024-12-27 08:26] VITALS: TEMP 98.1
[2024-12-27 08:27] LABS: IMMATURE GRANULOCYTE ABSOLUTE 0.01 K/uL (0-1); NUCLEATED RED BLOOD CELLS 0.0 % (0.0-0.19); PLATELET COUNT (AUTO) 298 K/uL (130-400); RED BLOOD CELL COUNT(AUTO) 3.84 MIL/uL (4.00-5.50); RED CELL DISTRIBUTION WIDTH 11.9 % (11.0-15.5); WHITE BLOOD COUNT (AUTO) 6.4 K/uL (4.8-10.8)
[2024-12-27 08:51] LABS: ASPARTATE AMINOTRANSFERASE 17.0 U/L (10-37); CREATINE KINASE, TOTAL 104.0 U/L (21-232); GLUCOSE,RANDOM 82.0 mg/dL (70-105); SODIUM SERUM 137.0 mmol/L (136-145); TOTAL PROTEIN, SERUM 8.5 g/dL (6.0-8.3); UREA NITROGEN, BLOOD 0.0 mg/dL (7-18)
[2024-12-27] MEDS: 0.9%NACL 1000ML 1,000 ML IV ONE (08:56)
[2024-12-27] MEDS: PROMETHAZINE HCL 25 MG/ML 1ML AMPULE IM ONE (08:57)
[2024-12-27 09:13] LABS: APPEARANCE,URINE CLEAR (CLEAR); GLUCOSE, URINE (UA) NEGATIVE (NEGATIVE); LEUKOCYTE ESTERASE ,URINE NEGATIVE Leu/uL (NEGATIVE); NITRATE,URINE NEGATIVE (NEGATIVE); OCCULT BLOOD,URINE NEGATIVE (NEGATIVE)
[2024-12-27 09:19] LABS: ADD UA MICROSCOPIC YES
[2024-12-27 09:23] LABS: SQUAMOUS EPITHELIAL CELL,UR MOD /HPF (0-2)
[2024-12-27 09:35] LABS: CREATININE 3.4 mg/dL (0.5-1.0); GLOMERULAR FILTR. RATE CALC 17.0 mL/min (>90)
--- NOTE | 2024-12-27 09:37 | NUR ---
PENDING TEST RESULTS FOR CT.
[2024-12-27 09:48] LABS: AMPHET/METH SCREEN,URINE NEGATIVE (NEGATIVE); BARBITURATE SCREEN, URINE NEGATIVE (NEGATIVE); CANNABINOID SCREEN,URINE POSITIVE (NEGATIVE); COCAINE SCREEN,URINE NEGATIVE (NEGATIVE)
--- NOTE | 2024-12-27 10:03 | EKG ---
[facility] Test Date: 2024-12-27 Test Time: 08:07:10 Pat Name: FRANDY HODGE Department: ED Room: Gender: F Crab Backer: [id number] : 1990 Requested By: CHANI BEACH Order Number: [id number] Reading MD: Elie Whaley Measurements Intervals [place] Rate: 89 P: 62 DC: 141 QRS: 10 QRSD: 102 T: 124 QT: 379 QTc: 461 Interpretive Statements Sinus rhythm Possible inferior infarct, old Nonspecific T abnormalities, lateral leads Compared to ECG 10/01/2024 10:39:22 Myocardial infarct finding now present T-wave abnormality now present Electronically Signed On 12-27-2024 11:41:17 CDT by Elie Whaley Please click the below link to view image of tracing.
--- NOTE | 2024-12-27 10:48 | HMCIMG ---
EXAM: CT Abdomen and Pelvis Without IV contrast CLINICAL HISTORY: diffuse pain and vomiting TECHNIQUE: Axial computed tomography images of the abdomen and pelvis without intravenous contrast. CONTRAST: No IV contrast. COMPARISON: 10/24 FINDINGS: LUNG BASES: Subtle interlobular septal thickening in the right lower lobe and the posterobasal segment of the left lower lobe. No pleural effusions are seen. LIVER: Unremarkable. GALLBLADDER AND BILE DUCTS: The gallbladder is surgically removed. PANCREAS: Unremarkable. SPLEEN: Unremarkable. ADRENAL GLANDS: Unremarkable. KIDNEYS, URETERS, AND BLADDER: Small bilateral nonobstructing renal collecting system stones, measuring 1 to 2 mm. No ureteral stones. No hydronephrosis. Grossly unremarkable urinary bladder. STOMACH AND BOWEL: Unremarkable appearance of the stomach and bowel. No evidence of bowel obstruction. No evidence suggesting enteritis or colitis. APPENDIX: Normal appendix. PERITONEUM: No free fluid. No free air. LYMPH NODES: No lymphadenopathy is evident. REPRODUCTIVE: Unremarkable as visualized. VASCULATURE: No evidence of abdominal aortic aneurysm. BONES: No aggressive appearing osseous lesion. No acute osseous pathology evident.IMPRESSION: 1. No acute intraabdominal or pelvic pathology. /[place]
[2024-12-27 11:00] VITALS: BP 115/68; PULSE 71; RESP 18; O2SAT 100
[2024-12-27] MEDS ORDERED: ONDA-243 PO (11:33)
[2024-12-27] MEDS ORDERED: DICY20TA2 PO (11:33)
--- NOTE | 2024-12-27 11:33 | ERN ---
ED Note History of Present Illness Stated Complaint: GENERAL BODY WEAKNESS Chief Complaint: Weakness Time Seen by MD: 07:56 Dictation: 34-year-old female presenting to the emergency department diffuse abdominal pain nausea and vomiting no diarrhea, patient has a history of Guillain-Barton and gastroparesis. Similar episodes in the past. No chest pain or shortness of breath. 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 Surgical History: Tonsillectomy, Cholecystectomy, Surgical History Other: EYE SURGERY Family History: Negative Social History: Drugs, Negative History: Not Applicable : 4 Para: 2 Aborts: 2 Review of System Dictation Constitutional: Negative for fever,chills, and weight loss Eyes: Negative for injury, pain,redness, and discharge ENT: Negative for injury,pain or swelling Cardiovascular: Negative for chest pain, palpitations, and edema Respiratory: Negative for shortness of breath, cough, and wheezing, Abdomen/GI: Per HPI : Negative for injury, bleeding and discharge MS/Extremity: Negative for injury and deformity Skin: Negative for rash, and discoloration Neuro: Negative for headache, weakness, numbness, tingling, and seizure Psych: Negative for suicide ideation, homicidal ideation, and hallucinations Initial Vital Sign VS Vital Signs Date Time Temp Pulse Resp B/P (MAP) Pulse Ox O2 Delivery O2 Flow Rate FiO2 12/27/24 07:54 98.2 97 19 134/88 99 Room Air 0 12/27/24 08:26 21 Physical Exam Dictation General: awake, alert, appears uncomfortable, and chronically ill Head/Face: Normocephalic, atraumatic Eyes: PERRL, EOMI, vision at baseline ENT: oral cavity clear, TMs clear, no signs of infection Neck: Trachea midline, supple, no nuchal rigidity Cardiovascular: RRR, normal S1/S2, No MRGs, no JVD Respiratory: CTAB, no respiratory distress, No rales or wheezes Abdomen: Soft, non-tender, non-distended, normal bowel sounds, no guarding or rebound. Skin: Warm, dry, normal turgor, no rash MS/Extremity: Pulses equal, no cyanosis, neurovascular intact, FROM Neuro: COAx4, GCS 15, strength 5/5, CN 2-12 intact, normal cerebellar exam, normal gait, Psych: Normal behavior, mood, and affect normal Results (Laboratory/Radiology) Laboratory/Radiology Laboratory Tests Test 12/27/24 08:18 12/27/24 08:29 White Blood Count 6.4 K/uL (4.8-10.8) Red Blood Count 3.84 MIL/uL (4.00-5.50) L Hemoglobin 11.4 g/dL (12.0-16.0) L Hematocrit 33.0 % (36-48) L Mean Corpuscular Volume 85.9 fL (79-99) Mean Corpuscular Hemoglobin 29.7 pg (27.0-33.0) Mean Corpuscular Hemoglobin Concent 34.5 g/dL (32.0-36.0) Red Cell Distribution Width 11.9 % (11.0-15.5) Platelet Count 298 K/uL (130-400) Mean Platelet Volume 9.9 fL (7.5-10.5) Immature Granulocyte % (Auto) 0.2 % (0-1) Neutrophils (%) (Auto) 48.1 % (40.0-77.0) Lymphocytes (%) (Auto) 37.3 % (21.0-51.0) Monocytes (%) (Auto) 6.3 % (3.0-13.0) Eosinophils (%) (Auto) 7.2 % (0.0-8.0) Basophils (%) (Auto) 0.9 % (0.0-5.0) Neutrophils # (Auto) 3.1 K/uL (1.8-7.7) Lymphocytes # (Auto) 2.4 K/uL (1.0-4.8) Monocytes # (Auto) 0.4 K/uL (0.1-1.0) Eosinophils # (Auto) 0.46 K/uL (0.00-0.70) Basophils # (Auto) 0.06 K/uL (0.00-0.20) Absolute Immature Granulocyte (auto 0.01 K/uL (0-1) Nucleated Red Blood Cells 0.0 % (0.0-0.19) Sodium Level 137 mmol/L (136-145) Potassium Level 4.2 mmol/L (3.5-5.1) Chloride Level 98 mmol/L (101-111) L Carbon Dioxide Level 27 mmol/L (21-32) Blood Urea Nitrogen 0 mg/dL (7-18) L Creatinine 3.4 mg/dL (0.5-1.0) H Glomerular Filtration Rate Calc 17 mL/min (>90) Random Glucose 82 mg/dL (70-105) Lactic Acid Level 1.0 mmol/L (0.8-2.5) Total Calcium 8.9 mg/dL (8.5-10.1) Total Bilirubin 0.3 mg/dL (0.2-1.0) Direct Bilirubin 0.1 mg/dL (0.0-0.3) Aspartate Amino Transf (AST/SGOT) 17 U/L (10-37) Alanine Aminotransferase (ALT/SGPT) 12 U/L (12-78) Alkaline Phosphatase 72 U/L (50-136) Total Creatine Kinase 104 U/L (21-232) # Troponin I High Sensitivity 5 ng/L (4-50) Total Protein 8.5 g/dL (6.0-8.3) H Albumin 4.1 g/dL (3.5-5.0) Lipase 84 U/L (16-77) H Urine Color LIGHT-YELLOW (YELLOW) Urine Appearance CLEAR (CLEAR) Urine pH 8.0 (5.0-8.0) Urine Specific [place] 1.014 (1.001-1.031) Urine Protein 100 mg/dL (NEGATIVE) H Urine Glucose (UA) NEGATIVE mg/dL (NEGATIVE) Urine Ketones NEGATIVE mg/dL (NEGATIVE) Urine Occult Blood NEGATIVE (NEGATIVE) Urine Nitrate NEGATIVE (NEGATIVE) Urine Bilirubin NEGATIVE mg/dL (NEGATIVE) Urine Urobilinogen 0.2 mg/dL (0.2-1.0) Urine Leukocyte Esterase NEGATIVE Jeannie/uL Urine RBC 2-5 /HPF (0-1) H Urine WBC 6-10 /HPF (0-1) H Urine Squamous Epithelial Cells MOD /HPF (0-2) Urine Bacteria Few /HPF (None Seen) Urine HCG, Qualitative NEGATIVE (NEGATIVE) Urine Opiates Screen NEGATIVE (NEGATIVE) Urine Barbiturates Screen NEGATIVE (NEGATIVE) Urine Phencyclidine Screen NEGATIVE (NEGATIVE) Urine Amphetamines Screen NEGATIVE (NEGATIVE) Urine Benzodiazepines Screen NEGATIVE (NEGATIVE) Urine Cocaine Screen NEGATIVE (NEGATIVE) Urine Marijuana (THC) Screen POSITIVE (NEGATIVE) H Labs Reviewed?: Yes EKG: (+) NSR, (+) nonspecific ST T wave chg, (+) nonspecific ST T wave chg EKG Comment: HR 89, NSR, normal intervals no STEMI ED Course ED Course Orders Procedure Category Date Status Time 12 Lead Ekg Tracing- EKG 12/27/24 Complete Technical 07:58 Basic Metabolic Panel LAB 12/27/24 Complete 07:58 Cbc With Differential LAB 12/27/24 Complete 07:58 Hepatic Function Panel LAB 12/27/24 Complete 07:58 Creatine Kinase, Total LAB 12/27/24 Complete 07:58 Urinalysis Profile LAB 12/27/24 Complete 07:58 Troponin I High LAB 12/27/24 Complete Sensitivity 07:58 Lipase LAB 12/27/24 Complete 07:58 Blood Cult COREY 12/27/24 In Process 07:58 Lactic Acid LAB 12/27/24 Complete 07:58 Chest 1vw RAD 12/27/24 Resulted 07:58 0.9%Nacl 1000ml (Ns PHA 12/27/24 Complete 1000ml) 09:00 Promethazine Hcl PHA 12/27/24 Complete (Phenergan) 09:00 Morphine 4mg Syg PHA 12/27/24 Complete (Morphine 4mg Syg) 09:00 Drug Screen Urine LAB 12/27/24 Complete 08:39 Ct Abd/Pel Wo Con CT 12/27/24 Resulted Renal/Appy 08:39 ,Urine Test LAB 12/27/24 Complete 09:37 Culture Urine COREY 12/27/24 In Process 09:38 Current Medications Medications (Trade) Dose Ordered Sig/Italo Route PRN Reason Start Time Stop Time Status Last Admin Dose Admin Morphine Sulfate (morPHINE 4MG SYG) 4 mg ONCE ONCE IVP 12/27/24 09:00 12/27/24 09:01 DC 12/27/24 08:57 Promethazine HCl (Phenergan) 12.5 mg ONCE ONCE IM 12/27/24 09:00 12/27/24 09:01 DC 12/27/24 08:57 Sodium Chloride 1,000 ml @ 0 mls/hr ONCE ONCE IV 12/27/24 09:00 12/27/24 09:01 DC 12/27/24 08:56 Vital Signs Date Time Temp Pulse Resp B/P (MAP) Pulse Ox O2 Delivery O2 Flow Rate FiO2 12/27/24 10:00 88 20 111/60 100 Room Air* 0 21 12/27/24 08:26 98.1 85 20 119/77 99 Room Air* 0 21 12/27/24 07:54 98.2 97 19 134/88 99 Room Air 0 Medical Decision Making MDM MDM: Differential diagnosis: Rationale: Tests considered and ordered secondary to shared decision making include: Previous outside records reviewed: Old ER visits. Risk of complication and/or morbidity or mortality of patient management: None Medications-Per medication reconciliation Need for hospitalization: Patient does not meet criteria for hospitalization. Need for emergency major/minor surgery: No There are no social concerns with this patient. Prescription drug management Prescriptions will include symptomatic care Patient's prior external medical records from other ER visits were reviewed by me as indicated. Prior testing and results from previous visits were reviewed. Prior tests were taken into account with medical decision making and resource utilization, independent historian/historians were used to obtain complete medical history. I independently interpreted the test that were performed, results were reviewed by me and considered findings on radiology if ordered. Medical management and examination interpretation discussions were had by me with other qualified healthcare professionals as indicated for the patient's care. 34-year-old female with gastroparesis acute dehydration, stable exam and workup symptoms improved stable for discharge. DX & DISP Disposition: Discharge Departure Impression: Primary Impression: Acute gastroenteritis Additional Impressions: Acute vomiting, Gastroparesis Condition: Stable Scripts Dicyclomine HCl (Bentyl) 20 Mg Tab 1 TAB PO BID for irritable bowel symptoms for 10 Days, #20 TAB 0 Refills Prov: CHANI BEACH MD 12/27/24 Ondansetron (Ondansetron Odt) 4 Mg Tab.rapdis 4 MG PO BID for vomiting for 5 Days, #10 TAB Prov: CHANI BEACH MD 12/27/24 Referrals: KENY FOLEY (PCP) CHANI BEACH MD Dec 27, 2024 11:33
== END 2024-12-27 11:49 | disposition home or self-care (01) ==
LOC: EDH 07:53
DX: K52.9 Noninfective gastroenteritis and colitis, unspecified (principal); E11.43 Type 2 diabetes mellitus with diabetic autonomic (poly)neuropathy; K31.84 Gastroparesis; R11.2 Nausea with vomiting, unspecified; Z90.49 Acquired absence of other specified parts of digestive tract; Z90.89 Acquired absence of other organs; Z98.890 Other specified postprocedural states
CPT/HCPCS: 99285; 74176; 96374; 71045; 96361; 82550; 80076; 84484; 80048; 80305; 83690; 85025; 87040 ×2; 87086 ×2; 87186; 83605; 81001; 81025; 36415; 96372; 93005; J7030; J2550; J2270

== ENCOUNTER 2024-12-28 01:39 | Emergency (ER) | payer MEDICAID ==
[~2024-12-28] VITALS: Ht 144.8 cm; Wt 49.9 kg
[~2024-12-28 01:39] MED LIST changes: +DICY20TA2 PO
[2024-12-28 01:40] VITALS: TEMP 99
--- NOTE | 2024-12-28 01:48 | ERN ---
ED Note History of Present Illness Stated Complaint: ABD PAIN WITH N/V Chief Complaint: Abdominal Pain Time Seen by MD: 01:41 Dictation: This is a 34-year-old with known history of multiple medical problems apparently was seen earlier today for abdominal pain nausea vomitings and she was eventually discharged to home after extensive workup. She came back to the ER via EMS stating that she still has the abdominal pain and wanted some pain medication. Temperature 99 pulse 89 respirations 16 blood pressure 134/74 with a pulse oximetry of 98% on room air Her chronic problems include diabetes mellitus, Guillain-[place] syndrome and heavy marijuana use with a cyclical vomitings syndrome. Patient has also exhibited opioid seeking behavior on multiple ER visits specifically requesting only Dilaudid Allergies: Coded Allergies: No Known Allergies (Unverified Allergy, Unknown, 04/24/22) Home Meds Active Scripts Dicyclomine HCl (Bentyl) 20 Mg Tab, 1 TAB PO BID for irritable bowel symptoms for 10 Days, #20 TAB 0 Refills Prov:CHANI BEACH MD 12/27/24 Ondansetron (Ondansetron Odt) 4 Mg Tab.rapdis, 4 MG PO BID for vomiting for 5 Days, #10 TAB Prov:CHANI BEACH MD 12/27/24 Ondansetron (Ondansetron Odt) 4 Mg Tab.rapdis, 4 MG PO Q6HPRN PRN for nausea, #16 TAB 0 Refills Prov:TONIE KAHN NP 03/05/24 Reported Medications Metoclopramide HCl (Metoclopramide HCl) 5 Mg Tablet, 5 MG PO TIDAC, TAB 08/05/24 Past Medical History Past Medical History: Anemia, Diabetes-Type II 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 Surgical History: Tonsillectomy, Cholecystectomy, Surgical History Other: EYE SURGERY Family History: Negative Social History: Drugs (Marijuana use) History: Not Applicable : 4 Para: 2 Aborts: 2 RN Note Reviewed/Agreed w/PFSH: Yes Review of System Dictation Constitutional: Negative for fever,chills, and weight loss Eyes: Negative for injury, pain,redness, and discharge ENT: Negative for injury,pain or swelling Cardiovascular: Negative for chest pain, palpitations, and edema Respiratory: Negative for shortness of breath, cough, and wheezing, Abdomen/GI: Positive for abdominal pain, nausea, vomiting, denies diarrhea, and constipation Back: Negative for injury and pain : Negative for injury, bleeding and discharge MS/Extremity: Negative for injury and deformity Skin: Negative for rash, and discoloration Neuro: Negative for headache, weakness, numbness, tingling, and seizure Psych: Negative for suicide ideation, homicidal ideation, and hallucinations Initial Vital Sign VS Vital Signs Date Time Temp Pulse Resp B/P (MAP) Pulse Ox O2 Delivery O2 Flow Rate FiO2 12/28/24 01:40 99.0 89 16 134/74 98 Room Air 0 12/28/24 02:50 21 Physical Exam Dictation General: awake, alert, NAD chronically ill-appearing emaciated female Head/Face: Normocephalic, atraumatic Eyes: PERRL, EOMI, vision at baseline ENT: oral cavity clear, TMs clear, no signs of infection Neck: Trachea midline, supple, no nuchal rigidity Cardiovascular: RRR, normal S1/S2, No MRGs, no JVD Respiratory: CTAB, no respiratory distress, No rales or wheezes Abdomen: Soft, mild tenderness, non-distended, normal bowel sounds, no guarding or rebound. Skin: Warm, dry, normal turgor, no rash MS/Extremity: Pulses equal, no cyanosis, neurovascular intact, FROM Neuro: COAx4, GCS 15, strength 5/5, CN 2-12 intact, normal cerebellar exam, normal gait, Psych: Normal behavior, mood, and affect normal Extremities-trace edema without any palpable cords, Homans sign is negative Results (Laboratory/Radiology) Labs Reviewed?: Yes EKG Comment: Twelve lead EKG done on 12/28/2024 at 2:09 a.m. showed a heart rate of 84, NC interval 145, QRS 101, QT/QTC 389/461 Impression normal sinus rhythm with very nonspecific ST-T changes. QTC is 461 seconds. Poor progression of the R-waves. EKG rhythm strip shows a normal sinus rhythm with nonspecific changes. Interpreted by ER MD Dr. Amato CT Scan Comment: REASON: diffuse pain and vomiting ORDERING PHYSICIAN: CHANI BEACH MD PROCEDURE: ABD PELVWO - CT ABD/PEL WO CON RENAL/APPY EXAM: CT Abdomen and Pelvis Without IV contrast CLINICAL HISTORY: diffuse pain and vomiting TECHNIQUE: Axial computed tomography images of the abdomen and pelvis without intravenous contrast. CONTRAST: No IV contrast. COMPARISON: 10/24 FINDINGS: LUNG BASES: Subtle interlobular septal thickening in the right lower lobe and the posterobasal segment of the left lower lobe. No pleural effusions are seen. LIVER: Unremarkable. GALLBLADDER AND BILE DUCTS: The gallbladder is surgically removed. PANCREAS: Unremarkable. SPLEEN: Unremarkable. ADRENAL GLANDS: Unremarkable. KIDNEYS, URETERS, AND BLADDER: Small bilateral nonobstructing renal collecting system stones, measuring 1 to 2 mm. No ureteral stones. No hydronephrosis. Grossly unremarkable urinary bladder. STOMACH AND BOWEL: Unremarkable appearance of the stomach and bowel. No evidence of bowel obstruction. No evidence suggesting enteritis or colitis. APPENDIX: Normal appendix. PERITONEUM: No free fluid. No free air. LYMPH NODES: No lymphadenopathy is evident. REPRODUCTIVE: Unremarkable as visualized. VASCULATURE: No evidence of abdominal aortic aneurysm. BONES: No aggressive appearing osseous lesion. No acute osseous pathology evident.IMPRESSION: 1. No acute intraabdominal or pelvic pathology. /[place] DICTATED BY: CAROLINE ROMERO MD DATE: 12/27/241147 ELECTRONICALLY SIGNED BY: CAROLINE ROMERO MD DATE: 12/27/241147 ED Course ED Course Orders Procedure Category Date Status Time 0.9%Nacl 1000ml (Ns PHA 12/28/24 Complete 1000ml) 02:00 Haloperidol Inj PHA 12/28/24 Complete (Haldol Inj) 02:00 12 Lead Ekg Tracing- EKG 12/28/24 Logged Technical 01:48 Metoclopramide 10 PHA 12/28/24 Complete Mg/2 Ml Vial (Reglan 1 02:00 Morphine 2mg Syg PHA 12/28/24 Complete (Morphine 2mg Syg) 03:30 Current Medications Medications (Trade) Dose Ordered Sig/Italo Route PRN Reason Start Time Stop Time Status Last Admin Dose Admin Haloperidol Lactate (Haldol Inj) 2.5 mg ONCE PRN IM ANXIETY/AGITATION 12/28/24 02:00 12/28/24 02:25 DC 12/28/24 02:24 Ketorolac Tromethamine (toRADol) 30 mg ONCE ONCE IVP 12/28/24 03:00 12/28/24 03:04 DC Metoclopramide HCl (regLAN 10MG IV) 5 mg ONCE ONCE IVP 12/28/24 02:00 12/28/24 02:01 DC 12/28/24 02:24 Morphine Sulfate (morPHINE 2MG SYG) 2 mg ONCE ONCE IVP 12/28/24 03:30 12/28/24 03:31 DC 12/28/24 03:20 Sodium Chloride 1,000 ml @ 0 mls/hr ONCE ONCE IV 12/28/24 02:00 12/28/24 02:01 DC 12/28/24 02:24 Vital Signs Date Time Temp Pulse Resp B/P (MAP) Pulse Ox O2 Delivery O2 Flow Rate FiO2 12/28/24 05:15 78 18 116/63 97 Room Air* 0 21 12/28/24 02:50 80 18 130/69 97 Room Air* 0 21 12/28/24 01:40 99.0 89 16 134/74 98 Room Air 0 We will perform diagnostic labs, advanced imaging and administer medications according to the patient's complaint. Once the results are available, will review and personally interpreted the labs to rule out any acute life- threatening emergency the trach require immediate intervention and treatment. I will then re-evaluate the patient after treatment and diagnostic exams have return to determine whether the patient requires any further testing, can safely be discharged home or need further admission to hospital for additional treatment and evaluation. Medical Decision Making MDM Differential diagnosis: Gastritis, hyperemesis syndrome related to marijuana abuse, cholecystitis, small-bowel obstructions Rationale: Tests considered and ordered secondary to shared decision making include: Previous outside records reviewed: Old ER visits. Risk of complication and/or morbidity or mortality of patient management: None Medications-Per medication reconciliation Need for hospitalization: Patient does not meet criteria for hospitalization. Need for emergency major/minor surgery: No There are no social concerns with this patient. Prescription drug management Prescriptions will include symptomatic care Patient's prior external medical records from other ER visits were reviewed by me as indicated. Prior testing and results from previous visits were reviewed. Prior tests were taken into account with medical decision making and resource utilization, independent historian/historians were used to obtain complete medical history. I independently interpreted the test that were performed, results were reviewed by me and considered findings on radiology if ordered. Medical management and examination interpretation discussions were had by me with other qualified healthcare professionals as indicated for the patient's care. 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 The patient is now being discharged to home and should follow up with the primary care physician or the specialist as directed by the ER staff. Follow-up with primary care provider in 1 to 2 days. Take medications as directed here in the emergency room. Okay to continue home medications unless otherwise discussed during your visit in the emergency room today. Return to your nearest emergency room if symptoms worsen or if there is no improvement. Call 911 if you need immediate assistance. Take Tylenol or Motrin [id number] as needed and if no contraindications are present. Increase oral hydration. A wound culture or urine culture was ordered here in the emergency room department please follow-up with primary care provider and advise them to get repeat ports from our facility. If you had any Dain wrap/splints that were applied here, please do not remove them until you see your primary care or specialty. I counseled patient extensively on cannabis induced hyperemesis syndrome and with the renal insufficiency at her young age, I encouraged her to get into addiction program for marijuana cessation. Patient is reticent to any recommendations. I have also recommended at least to see a paint maker. Referrals: KENY FOLEY (PCP) JYOTI AMATO MD Dec 28, 2024 01:48
[2024-12-28] MEDS: 0.9%NACL 1000ML 1,000 ML IV ONE (02:24)
[2024-12-28] MEDS: HALOPERIDOL INJ 5 MG/ML VIAL IM PRN (02:24)
[2024-12-28 06:00] VITALS: BP 133/73; PULSE 82; RESP 18; O2SAT 97
--- NOTE | 2024-12-28 06:46 | EKG ---
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
== END 2024-12-28 06:03 | disposition home or self-care (01) ==
LOC: EDH 01:39
DX: R11.10 Vomiting, unspecified (principal); F12.20 Cannabis dependence, uncomplicated; E11.43 Type 2 diabetes mellitus with diabetic autonomic (poly)neuropathy; K31.84 Gastroparesis; G61.0 Guillain-Barre syndrome; E11.22 Type 2 diabetes mellitus with diabetic chronic kidney disease; N18.9 Chronic kidney disease, unspecified; Z90.49 Acquired absence of other specified parts of digestive tract; Z90.89 Acquired absence of other organs; Z98.890 Other specified postprocedural states
CPT/HCPCS: 99284; 96374; 96361; 96375; 93005; 96372; J2270; J7030; J1630; J2765

== ENCOUNTER 2025-01-01 12:09 | Emergency (ER) | payer MEDICAID ==
[~2025-01-01] VITALS: Ht 144.8 cm; Wt 51.3 kg
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
[2025-01-01 13:30] LABS: IMMATURE GRANULOCYTE ABSOLUTE 0.01 K/uL (0-1); NUCLEATED RED BLOOD CELLS 0.0 % (0.0-0.19); PLATELET COUNT (AUTO) 289 K/uL (130-400); RED BLOOD CELL COUNT(AUTO) 3.62 MIL/uL (4.00-5.50); RED CELL DISTRIBUTION WIDTH 12.2 % (11.0-15.5); WHITE BLOOD COUNT (AUTO) 7.4 K/uL (4.8-10.8)
[2025-01-01 13:36] LABS: CREATININE 2.7 mg/dL (0.5-1.0); GLOMERULAR FILTR. RATE CALC 23.0 mL/min (>90); GLUCOSE,RANDOM 77.0 mg/dL (70-105); SODIUM SERUM 137.0 mmol/L (136-145); UREA NITROGEN, BLOOD 31.0 mg/dL (7-18)
[2025-01-01] MEDS: 0.9%NACL 1000ML 1,000 ML IV ONE (13:53)
--- NOTE | 2025-01-01 14:01 | NUR ---
ASKED PT IF SHE COULD GIVE URINE SAMPLE STATES SHE DOESNT FEEL LIKE SHE NEED TO GO RIGHT NOW.
[2025-01-01 17:05] LABS: APPEARANCE,URINE CLEAR (CLEAR); GLUCOSE, URINE (UA) NEGATIVE (NEGATIVE); LEUKOCYTE ESTERASE ,URINE NEGATIVE Leu/uL (NEGATIVE); NITRATE,URINE NEGATIVE (NEGATIVE); OCCULT BLOOD,URINE NEGATIVE (NEGATIVE)
[2025-01-01 17:07] LABS: HCG,QUALITATIVE URINE NEGATIVE (NEGATIVE)
[2025-01-01 17:08] LABS: ADD UA MICROSCOPIC YES
[2025-01-01 17:10] LABS: SQUAMOUS EPITHELIAL CELL,UR RARE /HPF (0-2)
[2025-01-01 17:50] VITALS: BP 114/68; PULSE 89; RESP 18; TEMP 98.7; O2SAT 97
== END 2025-01-01 18:06 | disposition home or self-care (01) ==
LOC: EDH 12:09
DX: R11.15 Cyclical vomiting syndrome unrelated to migraine (principal); E86.0 Dehydration; E11.22 Type 2 diabetes mellitus with diabetic chronic kidney disease; N18.9 Chronic kidney disease, unspecified; Z90.49 Acquired absence of other specified parts of digestive tract; Z90.89 Acquired absence of other organs
CPT/HCPCS: 99284; 96374; 96361; 96375; 80048; 83690; 85025; 81001; 81025; 36415; J2270; J7030; J2405

== ENCOUNTER 2025-01-29 12:50 | Emergency (ER) | payer MEDICAID ==
[~2025-01-29] VITALS: Ht 144.8 cm; Wt 52.2 kg
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
[2025-01-29 13:22] LABS: IMMATURE GRANULOCYTE ABSOLUTE 0.01 K/uL (0-1); NUCLEATED RED BLOOD CELLS 0.0 % (0.0-0.19); PLATELET COUNT (AUTO) 296 K/uL (130-400); RED BLOOD CELL COUNT(AUTO) 3.79 MIL/uL (4.00-5.50); RED CELL DISTRIBUTION WIDTH 12.8 % (11.0-15.5); WHITE BLOOD COUNT (AUTO) 7.7 K/uL (4.8-10.8)
[2025-01-29 13:24] LABS: APPEARANCE,URINE CLEAR (CLEAR); GLUCOSE, URINE (UA) NEGATIVE (NEGATIVE); LEUKOCYTE ESTERASE ,URINE SMALL Leu/uL (NEGATIVE); NITRATE,URINE POSITIVE (NEGATIVE); OCCULT BLOOD,URINE TRACE-LYSED (NEGATIVE)
[2025-01-29 13:30] LABS: CREATININE 3.1 mg/dL (0.5-1.0); GLOMERULAR FILTR. RATE CALC 20.0 mL/min (>90); GLUCOSE,RANDOM 63.0 mg/dL (70-105); SODIUM SERUM 133.0 mmol/L (136-145); UREA NITROGEN, BLOOD 42.0 mg/dL (7-18)
[2025-01-29 13:31] LABS: HCG,QUALITATIVE URINE NEGATIVE (NEGATIVE)
[2025-01-29 13:32] LABS: ADD UA MICROSCOPIC YES
[2025-01-29 13:34] LABS: SQUAMOUS EPITHELIAL CELL,UR 30-50 /HPF (0-2)
[2025-01-29] MEDS: 0.9%NACL 1000ML 1,000 ML IV ONE (13:41)
[2025-01-29] MEDS ORDERED: DICY20TA2 PO (13:58)
[2025-01-29] MEDS ORDERED: ONDA-243 PO (13:58)
[2025-01-29] MEDS ORDERED: MACR100 PO (13:58)
[2025-01-29] MEDS: DICYCLOMINE 20MG (10MG/ML) AMP IM ONE (14:23)
[2025-01-29 15:01] VITALS: BP 116/75; PULSE 88; RESP 18; TEMP 97.9; O2SAT 99
== END 2025-01-29 15:09 | disposition home or self-care (01) ==
LOC: EDH 12:50
DX: K31.84 Gastroparesis (principal); E86.0 Dehydration; E11.22 Type 2 diabetes mellitus with diabetic chronic kidney disease; N18.4 Chronic kidney disease, stage 4 (severe); D63.1 Anemia in chronic kidney disease; Z79.899 Other long term (current) drug therapy; Z90.49 Acquired absence of other specified parts of digestive tract; Z90.89 Acquired absence of other organs; Z98.890 Other specified postprocedural states
CPT/HCPCS: 99284; 96365; 96361; 96375; 80048; 83690; 85025; 87086; 82010; 81001; 81025; 36415; 96372; J7030; J0696; J2405; J0500

== ENCOUNTER 2025-03-20 06:20 | Emergency (ER) | payer MEDICAID ==
[~2025-03-20] VITALS: Ht 144.8 cm; Wt 51.3 kg
[~2025-03-20 06:20] MED LIST changes: +MACR100 PO
[2025-03-20 06:54] LABS: NUCLEATED RED BLOOD CELLS 0.0 % (0.0-0.19); PLATELET COUNT (AUTO) 227.0 K/uL (130-400); RED BLOOD CELL COUNT(AUTO) 3.13 MIL/uL (4.00-5.50); RED CELL DISTRIBUTION WIDTH 12.7 % (11.0-15.5); WHITE BLOOD COUNT (AUTO) 6.1 K/uL (4.8-10.8)
[2025-03-20 07:00] LABS: CREATININE 2.9 mg/dL (0.5-1.0); GLOMERULAR FILTR. RATE CALC 21.0 mL/min (>90); GLUCOSE,RANDOM 83.0 mg/dL (70-105); SODIUM SERUM 138.0 mmol/L (136-145); UREA NITROGEN, BLOOD 44.0 mg/dL (7-18)
--- NOTE | 2025-03-20 07:15 | ERN ---
General Chief Complaint: Back Pain-No Injury Stated Complaint: LOWER BACK PAIN, N/V Time Seen by MD: 06:57 History of Present Illness Initial Comments Received sign-out from overnight doctor. Patient is a 34-year-old female history of Guillain-Heiskell, gastroparesis, marijuana dependence who presents to emergency room with the complaints of back pain. Patient states that she usually gets these similar symptoms every time the weather changes. Pt has h/o of CKD followed by Dr Melton. Allergies: Coded Allergies: No Known Allergies (Unverified Allergy, Unknown, 04/24/22) Home Meds Active Scripts Ondansetron (Ondansetron Odt) 4 Mg Tab.rapdis, 4 MG PO Q6HPRN PRN for nausea, #16 TAB 0 Refills Prov:BRIDGER POPE EVENT MARKETING INTERN 01/29/25 Dicyclomine HCl (Bentyl) 20 Mg Tab, 20 MG PO Q6HPRN PRN for ABDOMINAL CRAMPS, #30 TAB Prov:BRIDGER POPE EVENT MARKETING INTERN 01/29/25 Nitrofurantoin/Nitrofuran Mac (Macrobid) 100 Mg Cap, 1 CAP PO BID for 7 Days, #14 CAP 0 Refills Prov:BRIDGER POPE EVENT MARKETING INTERN 01/29/25 Dicyclomine HCl (Bentyl) 20 Mg Tab, 1 TAB PO BID for irritable bowel symptoms for 10 Days, #20 TAB 0 Refills Prov:CHANI BEACH MD 12/27/24 Ondansetron (Ondansetron Odt) 4 Mg Tab.rapdis, 4 MG PO BID for vomiting for 5 Days, #10 TAB Prov:CHANI BEACH MD 12/27/24 Ondansetron (Ondansetron Odt) 4 Mg Tab.rapdis, 4 MG PO Q6HPRN PRN for nausea, #16 TAB 0 Refills Prov:TONIE KAHN CNP 03/05/24 Reported Medications Metoclopramide HCl (Metoclopramide HCl) 5 Mg Tablet, 5 MG PO TIDAC, TAB 08/05/24 Past Medical History Past Medical History: Diabetes-Type II, Hypotension Medical History Other: GUILLAIN-BARRE SYNDROME, GASTROPARESIS Past Surgical History: Tonsillectomy, Cholecystectomy, Surgical History Other: EYE SURGERY Family History Family History: Negative Social History Social History: Drugs Female( History) History: Not Applicable : 4 Para: 2 Aborts: 2 Musculoskeletal: (+) back pain, (+) Flank Pain Review of Systems: was completed, & the rest were negative. Physical Exam Physical Exam Dictation GENERAL APPEARANCE NAD, activity normal for age, well developed/ well nourished, no cyanosis, pallor, or diaphoresis. EYES lids/conjunctiva normal. EARS/NOSE/THROAT Mucous membranes moist, nares normal, lips/teeth normal uvula midline without oral pharyngeal erythema, exudate or swelling TMs normal bilaterally. No lymphangitis/lymphedema. HEAD/NECK normocephalic atraumatic, no facial trauma, neck is supple. RESPIRATORY respiratory effort normal, speaks in full sentences, no tripod position, no accessory muscle use. Lungs clear to auscultation without rhonchi, wheezes, rales CARDIAC Regular rate and rhythm, no edema. ABDOMINAL Soft, ND/NT. No evidence of fluid wave. No pulsatile masses on exam, rebound tenderness, Reece sign or pain over Mcburney's point. MUSCLES/EXTREMITIES No abnormal range of motion, no swelling. SKIN Warm, pink and dry. No rashes, dermatoses, petechiae or lesions. NEUROLOGICAL Speech is clear and appropriate. Normal level of consciousness. Gait and coordination are normal. 5/5 strength in all extremities. PSYCH Normal mood and affect. Judgement/competence is appropriate Results Laboratory and Microbiology Lab and Micro Result Laboratory Tests Test 03/20/25 06:48 03/20/25 07:35 White Blood Count 6.1 K/uL (4.8-10.8) Red Blood Count 3.13 MIL/uL (4.00-5.50) L Hemoglobin 9.3 g/dL (12.0-16.0) L Hematocrit 27.6 % (36-48) L Mean Corpuscular Volume 88.2 fL (79-99) Mean Corpuscular Hemoglobin 29.7 pg (27.0-33.0) Mean Corpuscular Hemoglobin Concent 33.7 g/dL (32.0-36.0) Red Cell Distribution Width 12.7 % (11.0-15.5) Platelet Count 227 K/uL (130-400) Mean Platelet Volume 9.2 fL (7.5-10.5) Nucleated Red Blood Cells 0.0 % (0.0-0.19) Sodium Level 138 mmol/L (136-145) Potassium Level 5.1 mmol/L (3.5-5.1) Chloride Level 105 mmol/L (101-111) Carbon Dioxide Level 27 mmol/L (21-32) Blood Urea Nitrogen 44 mg/dL (7-18) H Creatinine 2.9 mg/dL (0.5-1.0) H Glomerular Filtration Rate Calc 21 mL/min (>90) Random Glucose 83 mg/dL (70-105) Total Calcium 8.3 mg/dL (8.5-10.1) L Lipase 83 U/L (16-77) H Urine Color LIGHT-YELLOW (YELLOW) Urine Appearance CLEAR (CLEAR) Urine pH 7.5 (5.0-8.0) Urine Specific [place] 1.014 (1.001-1.031) Urine Protein 70 mg/dL (NEGATIVE) H Urine Glucose (UA) NEGATIVE mg/dL (NEGATIVE) Urine Ketones NEGATIVE mg/dL (NEGATIVE) Urine Occult Blood +- (TRACE) (NEGATIVE) H Urine Nitrate 2+ (NEGATIVE) H Urine Bilirubin NEGATIVE mg/dL (NEGATIVE) Urine Urobilinogen 0.2 mg/dL (0.2-1.0) Urine Leukocyte Esterase 250 Jeannie/uL (NEGATIVE) H Urine RBC 0-1 /HPF (0-1) Urine WBC 26-50 /HPF (0-1) H Urine Squamous Epithelial Cells FEW /HPF (0-2) Urine Bacteria RARE /HPF (None Seen) MDM Ua significant for UTI. Will start abx and dxc home. Patient's prior external medical records from other ER visits were reviewed by me as indicated. Prior testing and results from previous visits were reviewed. Prior tests were taken into account with medical decision making and resource utilization, independent historian/historians were used to obtain complete medical history. I independently interpreted the test that were performed, results were reviewed by me and considered findings on radiology if ordered. Medical management and examination interpretation discussions were had by me with other qualified healthcare professionals as indicated for the patient's ca re. Labs and imaging reviewed with patient. All questions answered at this time. Patient advised to follow up with primary care physician in the next few days. Patient well-appearing, no acute distress. Vital signs stable. Will discharge at this time. Three MDM: DIFFERENTIAL DIAGNOSIS: Muscle spasm, UTI RATIONALE: TESTS CONSIDERED AND ORDERED SECONDARY TO SHARED DECISION MAKING INCLUDE: PREVIOUS OUTSIDE RECORDS REVIEWED: OLD ER VISITS. RISK OF COMPLICATION AND/OR MORBIDITY OR MORTALITY OF PATIENT MANAGEMENT: NONE MEDICATIONS-PER MEDICATION RECONCILIATION NEED FOR HOSPITALIZATION: PATIENT DOES NOT MEET CRITERIA FOR HOSPITALIZATION. NEED FOR EMERGENCY MAJOR/MINOR SURGERY: NO THERE ARE NO SOCIAL CONCERNS WITH THIS PATIENT. PRESCRIPTION DRUG MANAGEMENT PRESCRIPTIONS WILL INCLUDE SYMPTOMATIC CARE PATIENT'S PRIOR EXTERNAL MEDICAL RECORDS FROM OTHER ER VISITS WERE REVIEWED BY ME INDICATED. PRIOR TESTING AND RESULTS FROM PREVIOUS VISITS WERE REVIEWED. PRIOR TESTS WERE TAKEN INTO ACCOUNT WITH MEDICAL DECISION MAKING AND RESOURCE UTILIZATION, INDEPENDENT HISTORIAN/HISTORIANS WERE USED TO OBTAIN COMPLETE MEDICAL HISTORY. I INDEPENDENTLY INTERPRETED THE TEST THAT WERE PERFORMED, RESULTS WERE REVIEWED BY ME AND CONSIDERED FINDINGS ON RADIOLOGY IF ORDERED. MEDICAL MANAGEMENT AND EXAMINATION INTERPRETATION DISCUSSIONS WERE HAD BY ME WITH OTHER QUALIFIED HEALTHCARE PROFESSIONALS INDICATED FOR THE PATIENT'S CARE. ED Course Orders Procedure Category Date Status Time Urinalysis Profile LAB 03/20/25 Uncollected 06:38 Basic Metabolic Panel LAB 03/20/25 Complete 06:40 Cbc Without LAB 03/20/25 Complete Differential 06:40 Lipase LAB 03/20/25 Complete 06:40 Ondansetron 4mg Inj PHA 03/20/25 Complete (Zofran 4mg Inj) 07:00 0.9%Nacl 1000ml (Ns PHA 03/20/25 Complete 1000ml) 07:00 Morphine 2mg Syg PHA 03/20/25 Complete (Morphine 2mg Syg) 07:00 Urinalysis Profile LAB 03/20/25 Complete 07:42 Culture Urine COREY 03/20/25 In Process 08:28 Ceftriaxone 1g Vial PHA 03/20/25 Logged (Rocephine 1g Inj) 09:00 Current Medications Medications (Trade) Dose Ordered Sig/Italo Route PRN Reason Start Time Stop Time Status Last Admin Dose Admin Ceftriaxone Sodium (ROCEphine 1G INJ) 1 gm ONCE ONCE IVPB 03/20/25 09:00 03/20/25 09:01 UNV Morphine Sulfate (morPHINE 2MG SYG) 2 mg ONCE ONCE IVP 03/20/25 07:00 03/20/25 07:01 DC 03/20/25 08:04 Ondansetron HCl (zoFRAN 4MG INJ) 4 mg ONCE ONCE IVP 03/20/25 07:00 03/20/25 07:01 DC 03/20/25 08:04 Sodium Chloride 1,000 ml @ 0 mls/hr ONCE ONCE IV 03/20/25 07:00 03/20/25 07:01 DC 03/20/25 08:05 Vital Signs Date Time Temp Pulse Resp B/P (MAP) Pulse Ox O2 Delivery O2 Flow Rate FiO2 03/20/25 08:42 69 17 132/83 98 Room Air* 0 03/20/25 07:32 98.1 78 12 157/84 98 Room Air* 0 03/20/25 06:33 98.4 82 18 120/75 98 Room Air* 0 03/20/25 06:30 98.4 86 16 96/68 98 Room Air 0 DX & DISP Disposition: Discharge Departure Impression: Primary Impression: UTI (urinary tract infection) Additional Impression: Stage 3 chronic kidney disease Condition: Stable Scripts Cephalexin (Cephalexin) 500 Mg Capsule 1 CAP PO BID for 10 Days, #20 CAP 0 Refills Prov: GABINO DANIEL MD 03/20/25 Referrals: KENY FOLEY (PCP) GABINO DANIEL MD Mar 20, 2025 07:15
[2025-03-20 07:32] VITALS: TEMP 98
[2025-03-20] MEDS: 0.9%NACL 1000ML 1,000 ML IV ONE (08:05)
[2025-03-20 08:26] LABS: APPEARANCE,URINE CLEAR (CLEAR); GLUCOSE, URINE (UA) NEGATIVE (NEGATIVE); LEUKOCYTE ESTERASE ,URINE 250 Leu/uL (NEGATIVE); NITRATE,URINE 2+ (NEGATIVE); OCCULT BLOOD,URINE +- (TRACE) (NEGATIVE)
[2025-03-20 08:28] LABS: ADD UA MICROSCOPIC YES
[2025-03-20 08:31] LABS: SQUAMOUS EPITHELIAL CELL,UR FEW /HPF (0-2)
[2025-03-20] MEDS ORDERED: CEPH500C2 PO (08:58)
[2025-03-20] MEDS: HYDROcodone/APAP 5/325 1 TAB TABLET PO ONE (09:08)
[2025-03-20 09:34] VITALS: BP 137/76; PULSE 67; RESP 17; O2SAT 98
== END 2025-03-20 09:36 | disposition home or self-care (01) ==
LOC: EDH 06:20
DX: N39.0 Urinary tract infection, site not specified (principal); I95.9 Hypotension, unspecified; N18.30 Chronic kidney disease, stage 3 unspecified; E11.22 Type 2 diabetes mellitus with diabetic chronic kidney disease; Z90.89 Acquired absence of other organs; Z90.49 Acquired absence of other specified parts of digestive tract; Z79.899 Other long term (current) drug therapy
CPT/HCPCS: 99284; 96365; 96375; 96361; 80048; 83690; 85027; 87086 ×2; 87186; 81001; 36415; J2270; J7030; J0696; J2405

== ENCOUNTER 2025-04-14 18:09 | Observation (INO) | payer MEDICAID ==
[~2025-04-14] VITALS: Ht 144.8 cm; Wt 52.1 kg
[~2025-04-14 18:09] MED LIST changes: +CEPH500C2 PO
[2025-04-14 18:41] LABS: IMMATURE GRANULOCYTE ABSOLUTE 0.01 K/uL (0-1); NUCLEATED RED BLOOD CELLS 0.0 % (0.0-0.19); PLATELET COUNT (AUTO) 220 K/uL (130-400); RED BLOOD CELL COUNT(AUTO) 3.14 MIL/uL (4.00-5.50); RED CELL DISTRIBUTION WIDTH 12.7 % (11.0-15.5); WHITE BLOOD COUNT (AUTO) 6.2 K/uL (4.8-10.8)
[2025-04-14 18:49] LABS: CREATININE 2.4 mg/dL (0.5-1.0); GLOMERULAR FILTR. RATE CALC 27.0 mL/min (>90); GLUCOSE,RANDOM 68.0 mg/dL (70-105); SODIUM SERUM 136.0 mmol/L (136-145); UREA NITROGEN, BLOOD 32.0 mg/dL (7-18)
--- NOTE | 2025-04-14 18:55 | NUR ---
pt bedded at this time by ems recieved report by ems
--- NOTE | 2025-04-14 19:16 | ERN ---
ED Note History of Present Illness Stated Complaint: CP Chief Complaint: Chest Pain Time Seen by MD: 18:28 Time Seen by Midlevel: 18:30 Dictation: Ms. Hodge is a 34-year-old female with history of type 2 diabetes, gastroparesis, CKD, and chronic marijuana use who was transported via EMS to the emergency department this evening for evaluation of chest pain. She states that today at 1:00 p.m. she developed chest pain/tightness radiating to the left arm. She states now she has upper abdominal/epigastric pain accompanied by dizziness, nausea, and vomiting. She states that yesterday she had diarrhea stools but had normal bowel movements today. She states that she has had very little p.o. intake. States she has been smoking marijuana. She denies fever, chills, shortness of breath, cough,palpitations, edema, hematemesis, constipation, melena, hematochezia, dysuria, headache, or focal weakness/paresthesia Allergies: Coded Allergies: No Known Allergies (Unverified Allergy, Unknown, 04/24/22) Home Meds Active Scripts Cephalexin (Cephalexin) 500 Mg Capsule, 1 CAP PO BID for 10 Days, #20 CAP 0 Refills Prov:GABINO DANIEL MD 03/20/25 Ondansetron (Ondansetron Odt) 4 Mg Tab.rapdis, 4 MG PO Q6HPRN PRN for nausea, #16 TAB 0 Refills Prov:BRIDGER POPEP 01/29/25 Dicyclomine HCl (Bentyl) 20 Mg Tab, 20 MG PO Q6HPRN PRN for ABDOMINAL CRAMPS, #30 TAB Prov:BRIDGER POPE RECLAMATION FURNACE OPERATOR 01/29/25 Nitrofurantoin/Nitrofuran Mac (Macrobid) 100 Mg Cap, 1 CAP PO BID for 7 Days, #14 CAP 0 Refills Prov:BRIDGER POPE 01/29/25 Dicyclomine HCl (Bentyl) 20 Mg Tab, 1 TAB PO BID for irritable bowel symptoms for 10 Days, #20 TAB 0 Refills Prov:CHANI BEACH MD 12/27/24 Ondansetron (Ondansetron Odt) 4 Mg Tab.rapdis, 4 MG PO BID for vomiting for 5 Days, #10 TAB Prov:CHANI BEACH MD 12/27/24 Ondansetron (Ondansetron Odt) 4 Mg Tab.rapdis, 4 MG PO Q6HPRN PRN for nausea, #16 TAB 0 Refills Prov:TONIE KAHN SIDE BOSS 03/05/24 Reported Medications Metoclopramide HCl (Metoclopramide HCl) 5 Mg Tablet, 5 MG PO TIDAC, TAB 08/05/24 Past Medical History Past Medical History: Diabetes-Type II, Hypotension, Other Additional Past Medical Hx: CUENCA BARRE, GASTROPARESIS Surgical History: Cholecystectomy, Surgical History Other: EYE SURGERY PSYCH History: anxiety Family History: Negative Social History: Drugs History: Not Applicable : 4 Para: 2 Aborts: 2 RN Note Reviewed/Agreed w/PFSH: Yes Review of System Dictation REVIEW OF SYSTEMS: CONSTITUTIONAL: Patient denies fevers, chills, sweats and weight changes. Reports fatigue and general weakness. EYES: Patient denies any visual symptoms. EARS, NOSE, AND THROAT: No difficulties with hearing. No symptoms of rhinitis or sore throat. CARDIOVASCULAR: Patient denies palpitations, orthopnea and paroxysmal nocturnal dyspnea. Reports chest pain/tightness radiating to the left arm with onset 1300 RESPIRATORY: No dyspnea on exertion, no wheezing or cough. GI: No constipation, hematemesis hematochezia or melena. Reports diarrhea stool yesterday states had normal bowel movement today. Reports upper abdominal/epigastric pain. Reports nausea and vomiting. : No urinary hesitancy or dribbling. No nocturia or urinary frequency. No abnormal urethral discharge. MUSCULOSKELETAL: No myalgias or arthralgias. NEUROLOGIC: No chronic headaches, no seizures. Patient denies numbness, tingling or weakness. PSYCHIATRIC: Patient denies problems with mood disturbance. No problems with anxiety. ENDOCRINE: No excessive urination or excessive thirst. DERMATOLOGIC: Patient denies any rashes or skin changes. Initial Vital Sign VS Vital Signs Date Time Temp Pulse Resp B/P (MAP) Pulse Ox O2 Delivery O2 Flow Rate FiO2 04/14/25 18:11 98.2 89 16 137/73 100 Room Air 0 04/14/25 19:46 21 Physical Exam Dictation Vital signs: Reviewed. Afebrile Constitutional: Chronically ill-appearing. Head/Face: Thinning hair. Scalp appears white color Eyes: Periorbital areas with no swelling, redness, or edema. Lids and lashes are normal. Conjunctival injection is absent. Sclera anicteric. Pupils equal, round, reactive to light. ENT: Pinnas intact and no signs of trauma or erythema. Ear canals clear and no discharge. TMs no erythema. No nasal discharge or bleeding noted. Oropharynx with no exudate, redness, swelling, masses, exudates, or evidence of obstruction. Uvula midline. Mucous membranes dry Neck: Trachea midline, no masses palpated, and no cervical lymphadenopathy. No swelling. Supple, full range of motion. Chest/Axilla: No tenderness, no crepitus, no paradoxical movement, no retractions. Cardiovascular: Regular rate, regular rhythm, no murmur, no gallops. Symmetric pulses. No peripheral edema. Twelve lead EKG reflects a sinus rhythm without ST-elevation. BP 137/73 Respiratory: Respirations even and unlabored. Lung sounds clear; no wheezes, rales or rhonchi. Room air SpO2 100% Gastrointestinal: Inspection is normal. No distention is appreciated. Bowel sounds are normal. No mass or organomegaly . There is no tenderness. No rebound. No rigidity. No voluntary or involuntary guarding. No Reece's sign. Neurological: Normal speech, gross motor function intact, gross sensory function intact. No focal weakness/Paresthesia. Musculoskeletal/Extremities: All extremities have full range of motion, no pain or tenderness on palpation. Symmetric pulses. Integumentary: Skin is no, warm and dry. Cap refill less than 3 seconds. Results (Laboratory/Radiology) Laboratory/Radiology Laboratory Tests Test 04/14/25 18:33 White Blood Count 6.2 K/uL (4.8-10.8) Red Blood Count 3.14 MIL/uL (4.00-5.50) L Hemoglobin 9.4 g/dL (12.0-16.0) L Hematocrit 28.5 % (36-48) L Mean Corpuscular Volume 90.8 fL (79-99) Mean Corpuscular Hemoglobin 29.9 pg (27.0-33.0) Mean Corpuscular Hemoglobin Concent 33.0 g/dL (32.0-36.0) Red Cell Distribution Width 12.7 % (11.0-15.5) Platelet Count 220 K/uL (130-400) Mean Platelet Volume 9.2 fL (7.5-10.5) Immature Granulocyte % (Auto) 0.2 % (0-1) Neutrophils (%) (Auto) 46.8 % (40.0-77.0) Lymphocytes (%) (Auto) 37.2 % (21.0-51.0) Monocytes (%) (Auto) 6.0 % (3.0-13.0) Eosinophils (%) (Auto) 8.7 % (0.0-8.0) H Basophils (%) (Auto) 1.1 % (0.0-5.0) Neutrophils # (Auto) 2.9 K/uL (1.8-7.7) Lymphocytes # (Auto) 2.3 K/uL (1.0-4.8) Monocytes # (Auto) 0.4 K/uL (0.1-1.0) Eosinophils # (Auto) 0.54 K/uL (0.00-0.70) Basophils # (Auto) 0.07 K/uL (0.00-0.20) Absolute Immature Granulocyte (auto 0.01 K/uL (0-1) Nucleated Red Blood Cells 0.0 % (0.0-0.19) Sodium Level 136 mmol/L (136-145) Potassium Level 5.3 mmol/L (3.5-5.1) H Chloride Level 104 mmol/L (101-111) Carbon Dioxide Level 24 mmol/L (21-32) Blood Urea Nitrogen 32 mg/dL (7-18) H Creatinine 2.4 mg/dL (0.5-1.0) H Glomerular Filtration Rate Calc 27 mL/min (>90) Random Glucose 68 mg/dL (70-105) L Total Calcium 8.3 mg/dL (8.5-10.1) L Magnesium Level 2.20 mg/dL (1.80-2.40) Troponin I High Sensitivity 8 ng/L (4-50) Serum Test, Qualitative NEGATIVE (NEGATIVE) Labs Reviewed?: Yes EKG Comment: EKG Interpretation: Time Reviewed: 1805 Normal sinus rhythm Ventricular rate: 80bpm WI Interval: 141 ms QRS duration: [address] segment elevation or depression. Clinical impression: sinus rhythm EKG Reviewed and interpreted by Dr. A Thopu X-RAY Comment: PATIENT: FRANDY HODGE MR#: [id number] : 1990 SEX: F AGE: 34 LOCATION: [facility] ORDER 28 STATUS: REG ER REPORT#: [id number] SERVICE 28 REASON: CP ORDERING PHYSICIAN: CHANI BEACH MD PROCEDURE: CXR1VW - CHEST 1VW EXAM: CR Chest, 1 View. CLINICAL HISTORY: CP COMPARISON: 12/27/2024. FINDINGS: LUNGS: The lungs show no infiltrate or other acute finding. PLEURAL SPACES: No evidence of pleural effusion or pneumothorax. MEDIASTINUM: Cardiac size and mediastinal contours within normal limits. BONES: No aggressive appearing osseous lesion seen. IMPRESSION: No acute cardiopulmonary pathology is evident. /[place] DICTATED BY: CAROLINE ROMERO MD DATE: 04/14/252027 ELECTRONICALLY SIGNED BY: CAROLINE ROMERO MD DATE: 04/14/252027 ED Course ED Course Orders Procedure Category Date Status Time Cbc With Differential LAB 04/14/25 Complete 18:29 Basic Metabolic Panel LAB 04/14/25 Complete 18:29 Troponin I High LAB 04/14/25 Complete Sensitivity 18:29 Chest 1vw RAD 04/14/25 Resulted 18:29 Testing, LAB 04/14/25 Complete Serum Hcg 18:29 Magnesium LAB 04/14/25 Complete 18:29 12 Lead Ekg Tracing- EKG 04/14/25 Logged Technical 18:29 Ondansetron 4mg Inj PHA 04/14/25 Complete (Zofran 4mg Inj) 19:30 0.9%Nacl 1000ml (Ns PHA 04/14/25 Complete 1000ml) 19:30 Hydromorphone 0.5mg PHA 04/14/25 Complete Syg (Dilaudid 0.5mg 19:30 Random Accucheck At CPOE 04/14/25 Transmitted Bedside 19:16 0.9% Nacl 500ml PHA 04/14/25 Complete Iv.Soln (Ns 500ml 21:00 Current Medications Medications (Trade) Dose Ordered Sig/Italo Route PRN Reason Start Time Stop Time Status Last Admin Dose Admin Hydromorphone HCl (DiLAUDid 0.5MG INJ) 0.5 mg ONCE ONCE IVP 04/14/25 19:30 04/14/25 19:31 DC 04/14/25 19:33 Ondansetron HCl (zoFRAN 4MG INJ) 4 mg ONCE ONCE IVP 04/14/25 19:30 04/14/25 19:31 DC 04/14/25 19:33 Sodium Chloride 500 ml @ 0 mls/hr Q0M ONCE IV 04/14/25 21:00 04/14/25 21:01 DC 04/14/25 20:44 Sodium Chloride 1,000 ml @ 0 mls/hr ONCE ONCE IV 04/14/25 19:30 04/14/25 19:31 DC 04/14/25 19:33 Vital Signs Date Time Temp Pulse Resp B/P (MAP) Pulse Ox O2 Delivery O2 Flow Rate FiO2 04/14/25 19:46 83 18 144/82 98 Room Air* 0 21 04/14/25 18:11 98.2 89 16 137/73 100 Room Air 0 Patient has stable vital signs; afebrile and normotensive with room air SpO2 9800%. She has nausea without further emesis. She has had no diarrhea stool. Twelve lead EKG reflects a sinus rhythm without ST-elevation. Rate 81. Chest x-ray is unremarkable with clear lung ahuja. Laboratory findings as noted below. No elevation of WBCs. H&H are stable/chronic 9.4/28.5, K 5.3, BUN/CR 32/2.1, glucose 68, and calcium 8.3. Initial troponin is negative. She received doses Zofran, Dilaudid, and NS 1500 mL IV as bolus.She continues to complain of upper abdominal/epigastric pain albeit less. She states she does not feel like she can go home because she is too weak. Findings were discussed with [facility] who accepts patient for [facility] group. HEART Score Response (Comments) Value History: Moderate suspicion (+1) 1 EKG: Normal 0 Age: < 45yrs (0) 0 Risk Factors: 1-2 risk factors (+1) 1 Initial Troponin: Normal limit (0) 0 HEART Score Risk: Low Risk for MACE (1-3) Total 2 Medical Decision Making MDM MDM: Differential diagnosis: ACS, electrolyte derangement, dehydration, cannabinoid hyperemesis syndrome Rationale: Tests considered and ordered secondary to shared decision making include: labs, ECG and radiology Previous outside records reviewed: Old ER visits. Risk of complication and/or morbidity or mortality of patient management: None Medications-Per medication reconciliation Need for hospitalization: Patient does meet criteria for hospitalization. Need for emergency major/minor surgery: No There are no social concerns with this patient. Prescription drug management Prescriptions will include symptomatic care Patient's prior external medical records from other ER visits were reviewed by me as indicated. Prior testing and results from previous visits were reviewed. Prior tests were taken into account with medical decision making and resource utilization, independent historian/historians were used to obtain complete medical history. I independently interpreted the test that were performed, results were reviewed by me and considered findings on radiology if ordered. Medical management and examination interpretation discussions were had by me with other qualified healthcare professionals as indicated for the patient's care. DX & DISP Disposition: Observation Departure Impression: Primary Impression: Hyperkalemia Additional Impressions: Hypoglycemia, Marijuana dependence Condition: Stable Assign Patient to: Dr. Dionte Beth Referrals: KENY FOLEY (PCP) MITCHEL JAMA RECLAMATION FURNACE OPERATOR Apr 14, 2025 19:16
--- NOTE | 2025-04-14 19:29 | HMCIMG ---
EXAM: CR Chest, 1 View. CLINICAL HISTORY: CP COMPARISON: 12/27/2024. FINDINGS: LUNGS: The lungs show no infiltrate or other acute finding. PLEURAL SPACES: No evidence of pleural effusion or pneumothorax. MEDIASTINUM: Cardiac size and mediastinal contours within normal limits. BONES: No aggressive appearing osseous lesion seen. IMPRESSION: No acute cardiopulmonary pathology is evident. /[place]
[2025-04-14] MEDS: 0.9%NACL 1000ML 1,000 ML IV ONE (19:33)
[2025-04-14] MEDS: 0.9% NACL 500ML IV.SOLN 500 ML IV ONE (20:44)
[2025-04-14 21:56] LABS: APPEARANCE,URINE CLEAR (CLEAR); GLUCOSE, URINE (UA) NEGATIVE (NEGATIVE); LEUKOCYTE ESTERASE ,URINE NEGATIVE Leu/uL (NEGATIVE); NITRATE,URINE 2+ (NEGATIVE); OCCULT BLOOD,URINE SMALL (NEGATIVE)
[2025-04-14 21:58] LABS: ADD UA MICROSCOPIC YES
[2025-04-14 21:58] LABS: CREATININE 2.2 mg/dL (0.5-1.0); GLOMERULAR FILTR. RATE CALC 29.0 mL/min (>90); GLUCOSE,RANDOM 81.0 mg/dL (70-105); SODIUM SERUM 137.0 mmol/L (136-145); UREA NITROGEN, BLOOD 31.0 mg/dL (7-18)
[2025-04-14 22:00] LABS: SQUAMOUS EPITHELIAL CELL,UR RARE /HPF (0-2)
[2025-04-14 22:03] LABS: ASPARTATE AMINOTRANSFERASE 14 U/L (10-37); TOTAL PROTEIN, SERUM 6.7 g/dL (6.0-8.3)
--- NOTE | 2025-04-14 23:28 | HP ---
[facility] HISTORY & PHYSICAL Date Patient Seen: Apr 14, 2025 Time of Visit: 23:21 Supervising Physician: Dr. Dionte Beth Primary Care Physician: David Barnes Outpatient Specialists: [ ] Inpatient Consults: [ ] PROBLEM LIST: Angina pectoris, POA Dm type 2, with hyperglycemia, POA Chronic kidney disease, POA Gastroparesis, POA Marijuana use, POA PLAN: Admit to medical-surgical floor VS per unit protocol ISS and fingerstick per unit protocol Keep serum glucose less than 150 Zofran 4 mg IV q.6 as needed for vomiting Diabetic diet Up ad natalie Bilateral SCDs Aspiration precautions CBC, CMP, magnesium level daily HPI: 34-year-old female with past medical history of DM type 2, gastroparesis, hypertension, CKD, marijuana use who presented to ED via EMS with complaint of chest pain that started earlier today. There is no associated lightheadedness, palpitation, confusion, or nausea or vomiting. In ED initial CBC showed chronic anemia, chemistry consistent with chronic kidney disease, with elevated potassium level of 5.4. Initial EKG done in ED showed no STEMI, her troponin level was also normal, chest x-ray unrevealing for any acute intrapulmonary process. At present patient is currently hemodynamically stable, on room air with appropriate oxygen saturation, not in acute respiratory distress, able to answer questions appropriately, denies any headache, chest pain, shortness of breath, fever, cough, diarrhea, difficulty urinating, burning sensation. Only complains of on and off mild abdominal pain. Patient also smokes marijuana daily, patient says that she's doing at for " pain control." PAST MEDICAL HX: see above PAST SURGICAL HX: noncontributory SOCIAL HISTORY: See HPI Coded Allergies: No Known Allergies (Unverified Allergy, Unknown, 04/24/22) REVIEW OF SYSTEMS: 12 point ROS reviewed with patient. Pertinent positives mentioned above. Otherwise negative. PHYSICAL EXAM: GENERAL: alert, weak, awake oriented x 3 HEENT: EOMI, Sclera non icteric, moist mucosa NECK: Supple, no JVD, trachea midline LUNGS: Clear breath sounds bilaterally. No wheezes HEART: Regular rate and rhythm. Normal S1 and S2, without murmurs ABD: Some tenderness on palpation EXT: No clubbing cyanosis or edema NEURO: Alert and oriented to person, follows commands Vital Signs (last 8hr) Date Time Temp Pulse Resp B/P (MAP) Pulse Ox O2 Delivery O2 Flow Rate FiO2 04/14/25 21:44 78 18 138/79 98 Room Air* 0 21 04/14/25 19:46 83 18 144/82 98 Room Air* 0 21 04/14/25 18:11 98.2 89 16 137/73 100 Room Air 0 LABS: Hematology Labs: Test 04/14/25 18:33 Range/Units White Blood Count 6.2 4.8-10.8 K/uL Red Blood Count 3.14 L 4.00-5.50 MIL/uL Hemoglobin 9.4 L 12.0-16.0 g/dL Hematocrit 28.5 L 36-48 % Mean Corpuscular Volume 90.8 79-99 fL Mean Corpuscular Hemoglobin 29.9 27.0-33.0 pg Mean Corpuscular Hemoglobin Concent 33.0 32.0-36.0 g/dL Red Cell Distribution Width 12.7 11.0-15.5 % Platelet Count 220 130-400 K/uL Mean Platelet Volume 9.2 7.5-10.5 fL Immature Granulocyte % (Auto) 0.2 0-1 % Neutrophils (%) (Auto) 46.8 40.0-77.0 % Lymphocytes (%) (Auto) 37.2 21.0-51.0 % Monocytes (%) (Auto) 6.0 3.0-13.0 % Eosinophils (%) (Auto) 8.7 H 0.0-8.0 % Basophils (%) (Auto) 1.1 0.0-5.0 % Neutrophils # (Auto) 2.9 1.8-7.7 K/uL Lymphocytes # (Auto) 2.3 1.0-4.8 K/uL Monocytes # (Auto) 0.4 0.1-1.0 K/uL Eosinophils # (Auto) 0.54 0.00-0.70 K/uL Basophils # (Auto) 0.07 0.00-0.20 K/uL Absolute Immature Granulocyte (auto 0.01 0-1 K/uL Nucleated Red Blood Cells 0.0 0.0-0.19 % Chemistry Labs: Test 04/14/25 20:42 04/14/25 18:33 Range/Units Sodium Level 137 136-145 mmol/L Potassium Level 5.4 H 3.5-5.1 mmol/L Chloride Level 108 101-111 mmol/L Carbon Dioxide Level 23 21-32 mmol/L Blood Urea Nitrogen 31 H 7-18 mg/dL Creatinine 2.2 H 0.5-1.0 mg/dL Glomerular Filtration Rate Calc 29 >90 mL/min Random Glucose 81 70-105 mg/dL Total Calcium 7.6 L 8.5-10.1 mg/dL Total Bilirubin 0.2 0.2-1.0 mg/dL Direct Bilirubin < 0.1 0.0-0.3 mg/dL Aspartate Amino Transf (AST/SGOT) 14 10-37 U/L Alanine Aminotransferase (ALT/SGPT) 10 L 12-78 U/L Alkaline Phosphatase 51 50-136 U/L Troponin I High Sensitivity 10 4-50 ng/L Total Protein 6.7 6.0-8.3 g/dL Albumin 3.2 L 3.5-5.0 g/dL Magnesium Level 2.20 1.80-2.40 mg/dL Serum Test, Qualitative NEGATIVE NEGATIVE DIAGNOSTICS / RADIOLOGY RESULTS: EXAM: CR Chest, 1 View. CLINICAL HISTORY: CP COMPARISON: 12/27/2024. FINDINGS: LUNGS: The lungs show no infiltrate or other acute finding. PLEURAL SPACES: No evidence of pleural effusion or pneumothorax. MEDIASTINUM: Cardiac size and mediastinal contours within normal limits. BONES: No aggressive appearing osseous lesion seen. IMPRESSION: No acute cardiopulmonary pathology is evident. /[place] PLAN NEURO: Minimize central acting medications as possible. Maintain fall precautions, adequate lighting during the day PULMONARY: Supplemental 02 as needed. Maintain aspiration precautions at all times CARDIOVASCULAR: Follow hemodynamics. Vital signs per facility protocol GI & NUTRITION: Continue with nutritional support. Continue stool softeners and laxatives as needed. KIDNEYS & ELECTROLYTES: Strict monitoring of intake, output and overall fluid balance. Avoid nephrotoxic medications to the extent possible. Medications to be dosed according to renal function. Monitor electrolytes and replace as needed ENDOCRINE: Maintain blood glucose between 100-180 at all times. Hypoglycemia protocol in place INFECTIOUS DISEASE: Trend temperature, WBC and procalcitonin level Follow cultures, deescalate antibiotics as soon as possible. Panculture if new onset fever ONCOLOGY/HEMATOLOGY/COAGULATION: Monitor for s/s of bleeding Monitor hemoglobin, coagulation studies as needed SKIN: Pressure ulcer prevention per facility protocol Specialty mattress ORTHO/REHAB: Continue PT/OT Prophylaxis: Continue GI and DVT prophylaxis Code Status: Full Resuscitation Disposition: TBD Supervising physician: EDNISE Clarke AGACNP Apr 14, 2025 23:28
[2025-04-14] MEDS ORDERED: ALBUTEROL 0.083% 2.5 MG/3 ML INH IH PRN (23:30)
[2025-04-15] VITALS (12 sets, daily range): BP systolic 94–155; BP diastolic 54–89; PULSE 68–84; RESP 16–20; TEMP 97.4–98.3; O2SAT 95–99
--- NOTE | 2025-04-15 02:44 | NUR ---
ORDERS PATIENT C/O PAIN 6/10 PAIN ALL OVER. ORDERS FOR PAIN MEDICATION GIVEN BY DENISE X1. ORDERS REPEATED AND ENTERED.
--- NOTE | 2025-04-15 05:22 | NUR ---
patient did not bring home medications
--- NOTE | 2025-04-15 07:03 | EKG ---
[facility] Test Date: 2025-04-14 Test Time: 18:10:10 Pat Name: FRANDY HODGE Department: [facility] Room: 417 Gender: F [place] Driver: [id number] : 1990 Requested By: CHANI BEACH Order Number: [id number] Reading MD: Juan Carlos Manriquez Measurements Intervals [place] Rate: 81 P: 65 CA: 143 QRS: 27 QRSD: 92 T: 72 QT: 370 QTc: 429 Interpretive Statements Sinus rhythm Consider anterior infarct Compared to ECG 12/28/2024 02:09:55 Myocardial infarct finding now present T-wave abnormality no longer present Electronically Signed On 04-16-2025 08:48:12 BI DATA MODELER by Juan Carlos Manriquez Please click the below link to view image of tracing.
[2025-04-15 07:11] LABS: IMMATURE GRANULOCYTE ABSOLUTE 0.01 K/uL (0-1); NUCLEATED RED BLOOD CELLS 0.0 % (0.0-0.19); PLATELET COUNT (AUTO) 215 K/uL (130-400); RED BLOOD CELL COUNT(AUTO) 3.06 MIL/uL (4.00-5.50); RED CELL DISTRIBUTION WIDTH 12.5 % (11.0-15.5); WHITE BLOOD COUNT (AUTO) 6.1 K/uL (4.8-10.8)
[2025-04-15 07:26] LABS: CREATININE 2.3 mg/dL (0.5-1.0); GLOMERULAR FILTR. RATE CALC 28.0 mL/min (>90); GLUCOSE,RANDOM 73.0 mg/dL (70-105); PHOSPHORUS 3.9 mg/dL (2.5-4.9); SODIUM SERUM 138.0 mmol/L (136-145); UREA NITROGEN, BLOOD 29.0 mg/dL (7-18)
[2025-04-15] MEDS: NA ZIRCON CYCLOSIL(LOKELMA 10GM) PO ONE (08:36)
--- NOTE | 2025-04-15 11:05 | NUR ---
Report given to DOUG Gleason bedside. Pt's B/P 146/78, HR 78 SR, Resp 18, O2 Sat 98% Room Air, Temp 98.6. No acute distress noted. Pt. transferred to Room 417.
--- NOTE | 2025-04-15 15:06 | NUR ---
DCP:HOME Pt currently lives at home with her mother in law. Pt states that she uses a walker and wheelchair at home. PT has a provider that goes to her home 17 hrs a week to assist with home management and meals. PCP is Dr. Rupali Barnes and uses [facility] for any RX needs. At DC pt will want to go home and family can assist with transportation.
[2025-04-15] MEDS ORDERED: 0.9%NACL 50ML IV SCH (16:30)
--- NOTE | 2025-04-15 16:43 | PN ---
[facility] PROGRESS NOTE Date Patient Seen: Apr 15, 2025 Time of Visit: 1020 Supervising Physician: Dr. Bandar Barnes Primary Care Physician: David Barnes PROBLEM LIST: Acute complicated cystitis failed outpatient treatment, POA Angina pectoris, POA Dm type 2, with hyperglycemia, POA Chronic kidney disease, POA Gastroparesis, POA Intractable abdominal pain associated with nausea / vomiting Marijuana use, POA INTERVAL HISTORY: Today patient assessed at bedside. She is AAOx3. She states she no longer has chest pain, but still has abdominal discomfort. She states she always has abdominal discomfort due to her gastroparesis. She also states she has had a UTI for over a month, but oral antibiotics that she was given did not work. PLAN: Start IV Antibiotic Start antiemetics Pending CT abdomen Pain control Admit to medical-surgical floor VS per unit protocol ISS and fingerstick per unit protocol Keep serum glucose less than 150 Zofran 4 mg IV q.6 as needed for vomiting Diabetic diet Up ad natalie Aspiration precautions CBC, CMP, magnesium level daily REVIEW OF SYSTEMS: 12 point ROS reviewed with patient. Pertinent positives mentioned above. Otherwise negative. PHYSICAL EXAM: GENERAL: alert, weak, awake oriented x 3 HEENT: EOMI, Sclera non icteric, moist mucosa NECK: Supple, no JVD, trachea midline LUNGS: Clear breath sounds bilaterally. No wheezes HEART: Regular rate and rhythm. Normal S1 and S2, without murmurs ABD: Some tenderness on palpation EXT: No clubbing cyanosis or edema NEURO: Alert and oriented to person, follows commands Vital Signs (last 8hr) Date Time Temp Pulse Resp B/P (MAP) Pulse Ox O2 Delivery O2 Flow Rate FiO2 04/15/25 12:19 98 Room Air* 0 21 04/15/25 12:00 97.3 73 18 143/87 100 Room Air LABS: Hematology Labs: Test 04/15/25 07:05 Range/Units White Blood Count 6.1 4.8-10.8 K/uL Red Blood Count 3.06 L 4.00-5.50 MIL/uL Hemoglobin 9.2 L 12.0-16.0 g/dL Hematocrit 28.1 L 36-48 % Mean Corpuscular Volume 91.8 79-99 fL Mean Corpuscular Hemoglobin 30.1 27.0-33.0 pg Mean Corpuscular Hemoglobin Concent 32.7 32.0-36.0 g/dL Red Cell Distribution Width 12.5 11.0-15.5 % Platelet Count 215 130-400 K/uL Mean Platelet Volume 9.8 7.5-10.5 fL Immature Granulocyte % (Auto) 0.2 0-1 % Neutrophils (%) (Auto) 42.6 40.0-77.0 % Lymphocytes (%) (Auto) 40.9 21.0-51.0 % Monocytes (%) (Auto) 6.4 3.0-13.0 % Eosinophils (%) (Auto) 8.7 H 0.0-8.0 % Basophils (%) (Auto) 1.2 0.0-5.0 % Neutrophils # (Auto) 2.6 1.8-7.7 K/uL Lymphocytes # (Auto) 2.5 1.0-4.8 K/uL Monocytes # (Auto) 0.4 0.1-1.0 K/uL Eosinophils # (Auto) 0.53 0.00-0.70 K/uL Basophils # (Auto) 0.07 0.00-0.20 K/uL Absolute Immature Granulocyte (auto 0.01 0-1 K/uL Nucleated Red Blood Cells 0.0 0.0-0.19 % Chemistry Labs: Test 04/15/25 16:34 04/15/25 07:05 04/14/25 20:42 04/14/25 18:33 Range/Units Whole Blood Glucose 86 70-110 MG/DL Sodium Level 138 136-145 mmol/L Potassium Level 5.7 H 3.5-5.1 mmol/L Chloride Level 108 101-111 mmol/L Carbon Dioxide Level 23 21-32 mmol/L Blood Urea Nitrogen 29 H 7-18 mg/dL Creatinine 2.3 H 0.5-1.0 mg/dL Glomerular Filtration Rate Calc 28 >90 mL/min Random Glucose 73 70-105 mg/dL Total Calcium 7.7 L 8.5-10.1 mg/dL Phosphorus Level 3.9 2.5-4.9 mg/dL Magnesium Level 1.90 1.80-2.40 mg/dL Troponin I High Sensitivity 10 4-50 ng/L Total Bilirubin 0.2 0.2-1.0 mg/dL Direct Bilirubin < 0.1 0.0-0.3 mg/dL Aspartate Amino Transf (AST/SGOT) 14 10-37 U/L Alanine Aminotransferase (ALT/SGPT) 10 L 12-78 U/L Alkaline Phosphatase 51 50-136 U/L Total Protein 6.7 6.0-8.3 g/dL Albumin 3.2 L 3.5-5.0 g/dL Serum Test, Qualitative NEGATIVE NEGATIVE DIAGNOSTICS / RADIOLOGY RESULTS: n/a PLAN NEURO: Minimize central acting medications as possible. Maintain fall precautions, adequate lighting during the day PULMONARY: Supplemental 02 as needed. Maintain aspiration precautions at all times CARDIOVASCULAR: Follow hemodynamics. Vital signs per facility protocol GI & NUTRITION: Continue with nutritional support. Continue stool softeners and laxatives as needed. KIDNEYS & ELECTROLYTES: Strict monitoring of intake, output and overall fluid balance. Avoid nephrotoxic medications to the extent possible. Medications to be dosed according to renal function. Monitor electrolytes and replace as needed ENDOCRINE: Maintain blood glucose between 100-180 at all times. Hypoglycemia protocol in place INFECTIOUS DISEASE: Trend temperature, WBC and procalcitonin level Follow cultures, deescalate antibiotics as soon as possible. Panculture if new onset fever ONCOLOGY/HEMATOLOGY/COAGULATION: Monitor for s/s of bleeding Monitor hemoglobin, coagulation studies as needed SKIN: Pressure ulcer prevention per facility protocol Specialty mattress ORTHO/REHAB: Continue PT/OT Prophylaxis: Continue GI and DVT prophylaxis Protonix and Heparin Code Status: Full Resuscitation Disposition: MICHAEL AMATO APRN Apr 15, 2025 16:43
[2025-04-15] MEDS: ZOSYN 3.375GM +NS 50ML IVPB SCH (16:51)
[2025-04-15] MEDS: HYDROcodone/APAP 5/325 1 TAB TABLET PO PRN (17:39)
[2025-04-16] VITALS (11 sets, daily range): BP systolic 118–152; BP diastolic 68–87; PULSE 69–114; RESP 12–20; TEMP 97.5–98.8; O2SAT 97–98
--- NOTE | 2025-04-16 00:57 | HMCIMG ---
EXAM: CT SCAN OF THE ABDOMEN AND PELVIS WITHOUT CONTRAST Clinical statement: Nausea, vomiting, and abdominal pain. STUDY PROTOCOL: CT radiation dose protocol was performed in accordance with the principles of ALARA. A multislice CT scan of the abdomen and pelvis was done without intravenous contrast. Sections were obtained from the diaphragms to the inguinal region. RADIATION DOSE: CTDIvol 6.40 mGy; DLP 348.60 mGycm. CONTRAST: No intravenous contrast administered. COMPARISON: CT scan of the abdomen and pelvis (renal/appendix protocol) from 12/27/2024. FINDINGS: LUNG BASE: Subtle interlobular septal thickening is present in the right lower lobe and posterobasal segment of the left lower lobe. No pleural effusion is identified. LIVER: Liver is unremarkable in size and attenuation on this noncontrast examination, without focal hepatic lesion described. GALL BLADDER: Status post cholecystectomy. No biliary fluid collection is described. PANCREAS: Pancreas is normal in size and contour with homogeneous attenuation. No peripancreatic fluid collection or fat stranding is identified. SPLEEN: Spleen is normal in size and attenuation without focal lesion. ADRENAL GLANDS: Bilateral adrenal glands are normal in size and morphology without focal nodule. KIDNEYS: Small bilateral nonobstructing renal collecting system stones are present, measuring approximately 12 mm. There is interval development of bilateral perinephric fat stranding. No ureteral calculus or hydronephrosis is identified. A simple cyst in the left kidney measures approximately 1.3 cm. Urinary bladder appears grossly unremarkable. GIT /T/ PERITONEAL CAVITY: Stomach and bowel demonstrate normal caliber and wall thickness without evidence of obstruction, colitis, or enteritis. An intraluminal gastric filling defect described as suspicious for trichobezoar is noted, compatible with a mass-like collection of ingested material within the stomach. No free intraperitoneal air or fluid is seen. APPENDIX: Appendix is visualized and appears normal, without wall thickening, distention, or periappendiceal inflammatory change. LYMPHNODES: No pathologically enlarged mesenteric, retroperitoneal, or pelvic lymph nodes are identified. RETROPERITONEUM: No retroperitoneal mass or hematoma is seen. Abdominal aorta is normal in caliber without aneurysm. There is interval development of mild aortoiliac atherosclerotic calcification. PELVIS: As visualized, pelvic organs are unremarkable except for an interval simple cyst in the right ovary measuring approximately 3.7 cm, with simple fluid attenuation and no associated solid component or surrounding inflammatory change described. No free pelvic fluid is noted. MUSCULOSKELETAL: No aggressive-appearing osseous lesion is identified. No acute fracture is evident. OTHER: No additional intra-abdominal or pelvic mass, collection, or abnormality is described. IMPRESSION: * Intraluminal gastric mass-like material described as suspicious for trichobezoar, which may account for the patients nausea and vomiting; recommend prompt gastroenterology consultation and endoscopic evaluation for confirmation and potential removal, given the risk of gastric outlet obstruction and associated complications. * Small bilateral nonobstructing renal stones (12 mm) with interval development of bilateral perinephric fat stranding and a new simple left renal cyst measuring 1.3 cm; findings may reflect recent passage of calculi or possible early/incomplete urinary tract inflammationcorrelate with flank pain, urinalysis, and renal function, with urologic or nephrology follow-up as clinically indicated. * Interval simple right ovarian cyst measuring approximately 3.7 cm, sonographically likely benign by CT appearance; in a premenopausal patient this most likely represents a functional cyst, and short-interval pelvic ultrasound follow-up may be considered depending on gynecologic history and symptoms. * Subtle interlobular septal thickening at the lung bases without effusion, a nonspecific finding that can be seen with early interstitial edema or mild interstitial lung change; correlate with volume status and cardiopulmonary examination. * Interval development of mild aortoiliac atherosclerotic calcification without abdominal aortic aneurysm, a chronic/incidental finding that supports continued cardiovascular risk-factor modification. * Normal appendix and otherwise unremarkable bowel, spleen, pancreas, adrenal glands, and urinary bladder. Compared with the CT abdomen/pelvis from 12/27/2024, there is new perinephric fat stranding, new left renal and right ovarian simple cysts, new suspicion for gastric trichobezoar, and new mild aortoiliac calcifications. /[place]
[2025-04-16 05:24] LABS: NUCLEATED RED BLOOD CELLS 0.0 % (0.0-0.19); PLATELET COUNT (AUTO) 209.0 K/uL (130-400); RED BLOOD CELL COUNT(AUTO) 2.89 MIL/uL (4.00-5.50); RED CELL DISTRIBUTION WIDTH 12.2 % (11.0-15.5); WHITE BLOOD COUNT (AUTO) 5.6 K/uL (4.8-10.8)
[2025-04-16 05:42] LABS: ASPARTATE AMINOTRANSFERASE 14.0 U/L (10-37); CREATININE 2.4 mg/dL (0.5-1.0); GLOMERULAR FILTR. RATE CALC 27.0 mL/min (>90); GLUCOSE,RANDOM 64.0 mg/dL (70-105); SODIUM SERUM 136.0 mmol/L (136-145); TOTAL PROTEIN, SERUM 6.3 g/dL (6.0-8.3); UREA NITROGEN, BLOOD 29.0 mg/dL (7-18)
[2025-04-16] MEDS: DEXTROSE 50%-WATER 50 ML DISP.SYRIN IV PRN (06:25)
[2025-04-16] MEDS ORDERED: GLUCAGON 1MG KIT 1 MG ML IM PRN (06:30)
[2025-04-16] MEDS ORDERED: 0.9%NACL 1000ML 1,000 ML IV SCH (09:30)
[2025-04-16] MEDS: ALBUTEROL 0.083% 2.5 MG/3 ML INH IH ONE (09:40)
--- NOTE | 2025-04-16 09:47 | NUR ---
spoke to Stacey with office for consult with Yan
[2025-04-16] MEDS: DEXTROSE 50%-WATER 50 ML DISP.SYRIN IV ONE (09:56)
[2025-04-16] MEDS: CALCIUM GLUC 1GM 1 GM in 0.9%NACL 100ML 100 ML IV ONE (10:14)
[2025-04-16] MEDS: DEXTROSE 5%-LACTATED RINGERS 1,000 ML IV SCH (11:40)
--- NOTE | 2025-04-16 12:12 | PN ---
[facility] PROGRESS NOTE Date Patient Seen: Apr 16, 2025 Time of Visit: 12:12 Supervising Physician: Dr. Bandar Barnes Primary Care Physician: David Barnes PROBLEM LIST: Acute complicated cystitis failed outpatient treatment, POA Intraluminal gastric mass suspicious for Trichobezoar Angina pectoris, POA Hyperkalemia Dm type 2, with hyperglycemia, POA Chronic kidney disease, POA Gastroparesis, POA Intractable abdominal pain associated with nausea / vomiting Marijuana use, POA INTERVAL HISTORY: Today patient assessed at bedside. She is AAOx3. Denies chest pain, no diarrhea, shortness of breath, or hematochezia. Patient continues with abdominal discomfort. Let her know that due to the results of CT gastroenterology has been consulted. She voiced understanding. Bedside nurse reports no acute incidents. PLAN: Start IV Antibiotic Consulted GI Start antiemetics Pain control Hyperkalemia protocol Admit to medical-surgical floor VS per unit protocol ISS and fingerstick per unit protocol Keep serum glucose less than 150 Zofran 4 mg IV q.6 as needed for vomiting Diabetic diet Up ad natalie Aspiration precautions CBC, CMP, magnesium level daily REVIEW OF SYSTEMS: 12 point ROS reviewed with patient. Pertinent positives mentioned above. Otherwise negative. PHYSICAL EXAM: GENERAL: alert, weak, awake oriented x 3 HEENT: EOMI, Sclera non icteric, moist mucosa NECK: Supple, no JVD, trachea midline LUNGS: Clear breath sounds bilaterally. No wheezes HEART: Regular rate and rhythm. Normal S1 and S2, without murmurs ABD: Some tenderness on palpation EXT: No clubbing cyanosis or edema NEURO: Alert and oriented to person, follows commands Vital Signs (last 8hr) Date Time Temp Pulse Resp B/P (MAP) Pulse Ox O2 Delivery O2 Flow Rate FiO2 04/16/25 09:45 78 19 04/16/25 08:00 98.4 93 18 152/87 97 Room Air 04/16/25 07:50 69 18 N/A Room Air 21 LABS: Hematology Labs: Test 04/16/25 04:45 04/15/25 07:05 Range/Units White Blood Count 5.6 4.8-10.8 K/uL Red Blood Count 2.89 L 4.00-5.50 MIL/uL Hemoglobin 8.5 L 12.0-16.0 g/dL Hematocrit 26.0 L 36-48 % Mean Corpuscular Volume 90.0 79-99 fL Mean Corpuscular Hemoglobin 29.4 27.0-33.0 pg Mean Corpuscular Hemoglobin Concent 32.7 32.0-36.0 g/dL Red Cell Distribution Width 12.2 11.0-15.5 % Platelet Count 209 130-400 K/uL Mean Platelet Volume 10.0 7.5-10.5 fL Nucleated Red Blood Cells 0.0 0.0-0.19 % Immature Granulocyte % (Auto) 0.2 0-1 % Neutrophils (%) (Auto) 42.6 40.0-77.0 % Lymphocytes (%) (Auto) 40.9 21.0-51.0 % Monocytes (%) (Auto) 6.4 3.0-13.0 % Eosinophils (%) (Auto) 8.7 H 0.0-8.0 % Basophils (%) (Auto) 1.2 0.0-5.0 % Neutrophils # (Auto) 2.6 1.8-7.7 K/uL Lymphocytes # (Auto) 2.5 1.0-4.8 K/uL Monocytes # (Auto) 0.4 0.1-1.0 K/uL Eosinophils # (Auto) 0.53 0.00-0.70 K/uL Basophils # (Auto) 0.07 0.00-0.20 K/uL Absolute Immature Granulocyte (auto 0.01 0-1 K/uL Chemistry Labs: Test 04/16/25 11:46 04/16/25 04:45 04/15/25 07:05 04/14/25 20:42 Range/Units Whole Blood Glucose 112 H 70-110 MG/DL Sodium Level 136 136-145 mmol/L Potassium Level 5.4 H 3.5-5.1 mmol/L Chloride Level 107 101-111 mmol/L Carbon Dioxide Level 22 21-32 mmol/L Blood Urea Nitrogen 29 H 7-18 mg/dL Creatinine 2.4 H 0.5-1.0 mg/dL Glomerular Filtration Rate Calc 27 >90 mL/min Random Glucose 64 L 70-105 mg/dL Total Calcium 7.9 L 8.5-10.1 mg/dL Total Bilirubin 0.2 0.2-1.0 mg/dL Aspartate Amino Transf (AST/SGOT) 14 10-37 U/L Alanine Aminotransferase (ALT/SGPT) 12 12-78 U/L Alkaline Phosphatase 47 L 50-136 U/L Total Protein 6.3 6.0-8.3 g/dL Albumin 2.9 L 3.5-5.0 g/dL Phosphorus Level 3.9 2.5-4.9 mg/dL Magnesium Level 1.90 1.80-2.40 mg/dL Troponin I High Sensitivity 10 4-50 ng/L Direct Bilirubin < 0.1 0.0-0.3 mg/dL Test 04/14/25 18:33 Range/Units Serum Test, Qualitative NEGATIVE NEGATIVE DIAGNOSTICS / RADIOLOGY RESULTS: PLAN NEURO: Minimize central acting medications as possible. Maintain fall precautions, adequate lighting during the day PULMONARY: Supplemental 02 as needed. Maintain aspiration precautions at all times CARDIOVASCULAR: Follow hemodynamics. Vital signs per facility protocol GI & NUTRITION: Continue with nutritional support. Continue stool softeners and laxatives as needed. KIDNEYS & ELECTROLYTES: Strict monitoring of intake, output and overall fluid balance. Avoid nephrotoxic medications to the extent possible. Medications to be dosed according to renal function. Monitor electrolytes and replace as needed ENDOCRINE: Maintain blood glucose between 100-180 at all times. Hypoglycemia protocol in place INFECTIOUS DISEASE: Trend temperature, WBC and procalcitonin level Follow cultures, deescalate antibiotics as soon as possible. Panculture if new onset fever ONCOLOGY/HEMATOLOGY/COAGULATION: Monitor for s/s of bleeding Monitor hemoglobin, coagulation studies as needed SKIN: Pressure ulcer prevention per facility protocol Specialty mattress ORTHO/REHAB: Continue PT/OT Prophylaxis: Continue GI and DVT prophylaxis Protonix and Heparin Code Status: Full Resuscitation Disposition: MICHAEL AMATO APRN Apr 16, 2025 12:12
--- NOTE | 2025-04-16 12:59 | CONS ---
GASTROENTEROLOGY CONSULTATION NOTE Date of Consultation: Apr 16, 2025 Time of Consultation: 12:59 History of Present Illness: This is a 34-year-old female with past medical history of type 2 diabetes, gastroparesis, hypertension, CKD, marijuana use who presented due to chest pain. Had a CT scan that revealed intraluminal gastric masslike material described suspicious for trichobezoar which may account for the patient's nausea and vomiting. Review of Systems: CONSTITUTIONAL: No malaise or change in sensation of wellbeing. ENMT: No rhinorrhea, otorrhea, sinus pain, ear ache. CARDIOVASCULAR: No angina, palpitations, orthopnea or paroxysmal dyspnea. RESPIRATORY: No SOB. GASTROINTESTINAL: No abdominal pain, nausea, vomiting, diarrhea, hematemesis, melena or change in the patient's habitual bowel movements consistency/number. GENITOURINARY: No dysuria, hematuria or change in bladder continence. MUSCULOSKELETAL: No new muscle pain or decrease in muscular strength. No new joint swelling, redness or tenderness. SKIN: No new rash. Past Medical History: [ ] Past Surgical History: [ ] Past Social History: [ ] Family History: [ ] Coded Allergies: No Known Allergies (Unverified Allergy, Unknown, 04/24/22) Physical Exam: GEN: Awake, alert, oriented in person, time and place, and in no acute distress. HEENT: No sinus tenderness. Tympanic membranes were not examined. No rhinorrhea. Oral pharyngeal mucosa is pink, moist and within normal limits. Neck is supple with no cervical lymphadenopathy, thyromegaly or JVD. CHEST: Inspection, palpation and percussion of the chest were unremarkable. Lung auscultation revealed normal breath sounds bilaterally. CARDIAC: PMI is within normal limits. Heart sounds are regular. Normal S1, S2. No gallop or murmur. ABD: Soft, non-tender and not distended. No peritoneal signs on palpation. No organomegaly. Normal bowel sounds. EXT: No cyanosis or clubbing. No edema. SKIN: Intact. No rashes. JOINTS: No evidence of synovitis or acute arthritis. NEURO: Alert and oriented to name, place and person. Cranial nerve examination is unremarkable. No focal motor deficits. Normal speech. Gait is normal. Stren gth is normal. Vital Sign (Last 24 Hours) 04/15/25 04/16/25 04/16/25 04/16/25 20:00 07:50 08:00 09:45 Temp 98.4 Pulse 78 Resp 19 B/P (MAP) 152/87 Pulse Ox 97 O2 Delivery Room Air O2 Flow Rate 0 FiO2 21 Intake & Output (last 24hrs) 04/15/25 04/15/25 04/16/25 15:00 23:00 07:00 Intake Total 100.0 ml Balance 100.0 ml Laboratory: [ ] Laboratory: Test 04/16/25 11:46 04/16/25 04:45 04/15/25 07:05 04/14/25 21:48 Range/Units Whole Blood Glucose 112 H 70-110 MG/DL White Blood Count 5.6 4.8-10.8 K/uL Red Blood Count 2.89 L 4.00-5.50 MIL/uL Hemoglobin 8.5 L 12.0-16.0 g/dL Hematocrit 26.0 L 36-48 % Mean Corpuscular Volume 90.0 79-99 fL Mean Corpuscular Hemoglobin 29.4 27.0-33.0 pg Mean Corpuscular Hemoglobin Concent 32.7 32.0-36.0 g/dL Red Cell Distribution Width 12.2 11.0-15.5 % Platelet Count 209 130-400 K/uL Mean Platelet Volume 10.0 7.5-10.5 fL Nucleated Red Blood Cells 0.0 0.0-0.19 % Sodium Level 136 136-145 mmol/L Potassium Level 5.4 H 3.5-5.1 mmol/L Chloride Level 107 101-111 mmol/L Carbon Dioxide Level 22 21-32 mmol/L Blood Urea Nitrogen 29 H 7-18 mg/dL Creatinine 2.4 H 0.5-1.0 mg/dL Glomerular Filtration Rate Calc 27 >90 mL/min Random Glucose 64 L 70-105 mg/dL Total Calcium 7.9 L 8.5-10.1 mg/dL Total Bilirubin 0.2 0.2-1.0 mg/dL Aspartate Amino Transf (AST/SGOT) 14 10-37 U/L Alanine Aminotransferase (ALT/SGPT) 12 12-78 U/L Alkaline Phosphatase 47 L 50-136 U/L Total Protein 6.3 6.0-8.3 g/dL Albumin 2.9 L 3.5-5.0 g/dL Immature Granulocyte % (Auto) 0.2 0-1 % Neutrophils (%) (Auto) 42.6 40.0-77.0 % Lymphocytes (%) (Auto) 40.9 21.0-51.0 % Monocytes (%) (Auto) 6.4 3.0-13.0 % Eosinophils (%) (Auto) 8.7 H 0.0-8.0 % Basophils (%) (Auto) 1.2 0.0-5.0 % Neutrophils # (Auto) 2.6 1.8-7.7 K/uL Lymphocytes # (Auto) 2.5 1.0-4.8 K/uL Monocytes # (Auto) 0.4 0.1-1.0 K/uL Eosinophils # (Auto) 0.53 0.00-0.70 K/uL Basophils # (Auto) 0.07 0.00-0.20 K/uL Absolute Immature Granulocyte (auto 0.01 0-1 K/uL Phosphorus Level 3.9 2.5-4.9 mg/dL Magnesium Level 1.90 1.80-2.40 mg/dL Troponin I High Sensitivity 10 4-50 ng/L Urine Color COLORLESS YELLOW Urine Appearance CLEAR CLEAR Urine pH 7.0 5.0-8.0 Urine Specific [place] 1.010 1.001-1.031 Urine Protein 50 H NEGATIVE mg/dL Urine Glucose (UA) NEGATIVE NEGATIVE mg/dL Urine Ketones NEGATIVE NEGATIVE mg/dL Urine Occult Blood SMALL H NEGATIVE Urine Nitrate 2+ H NEGATIVE Urine Bilirubin NEGATIVE NEGATIVE mg/dL Urine Urobilinogen 0.2 0.2-1.0 mg/dL Urine Leukocyte Esterase NEGATIVE NEGATIVE Jeannie/uL Urine RBC 2-5 H 0-1 /HPF Urine WBC 6-10 H 0-1 /HPF Urine Squamous Epithelial Cells RARE 0-2 /HPF Urine Bacteria FEW None Seen /HPF Test 04/14/25 20:42 04/14/25 18:33 Range/Units Direct Bilirubin < 0.1 0.0-0.3 mg/dL Serum Test, Qualitative NEGATIVE NEGATIVE Current Medications Medications (Trade) Dose Ordered Sig/Italo Route PRN Reason Start Time Stop Time Status Last Admin Dose Admin Acetaminophen (TYLenol 325MG TAB) 650 mg Q6H PRN PO FEVER/MILD PAIN LEVEL 1-3 04/14/25 23:30 05/14/25 23:29 04/15/25 08:37 650 MG Acetaminophen (TYLenol 650MG SUPPOSITORY) 650 mg Q6H PRN RC FEVER / MILD PAIN 1-3 IF NPO 04/14/25 23:30 05/14/25 23:29 Acetaminophen/ Hydrocodone Bitart (NORco 5/325MG) 1 tab Q8H PRN PO MODERATE PAIN (4-6) 04/15/25 17:30 04/20/25 17:29 04/15/25 22:06 1 TAB Albuterol Sulfate (Proventil 0.083% 2.5mg/3ml) 2.5 mg [id number] PRN IH SHORTNESS OF BREATH 04/14/25 23:30 05/14/25 23:29 Ceftriaxone Sodium (Rocephin 2gm Inj) 2 gm Q24H IVPB 04/15/25 08:00 04/15/25 16:26 DC 04/15/25 08:36 2 GM Dextrose (D50w) 50 ml AD PRN IV HYPOGLYCEMIA PROTOCOL 04/16/25 06:30 05/16/25 06:29 04/16/25 06:25 50 ML Dextrose/Lactated Ringer's 1,000 ml @ 100 mls/hr Q10H IV 04/16/25 09:30 05/16/25 09:29 04/16/25 11:40 100 MLS/HR Glucagon (Glucagon 1mg Kit) 1 mg AD PRN IM HYPOGLYCEMIA PROTOCOL 04/16/25 06:30 05/16/25 06:29 Heparin Sodium (Porcine) (HEParin 5,000 UNIT VIAL) 5,000 unit Q12H SQ 04/15/25 08:00 04/15/25 08:04 DC Heparin Sodium (Porcine) (HEParin 5,000 UNIT VIAL) 5,000 unit Q12H SQ 04/15/25 08:30 05/15/25 08:29 04/16/25 08:32 5,000 UNIT Hydralazine HCl (APRESOLine 20MG INJ) 10 mg Q6H PRN IV SBP GREATER THAN 180 04/14/25 23:30 05/14/25 23:29 Insulin Human Regular (humuLIN R 100 UNIT/ML 3ML) INSULIN SLIDING SCAL... ACHS SQ 04/15/25 07:30 05/15/25 07:29 Metoclopramide HCl (regLAN 5 MG TAB) 5 mg ACHS PO 04/15/25 07:30 05/15/25 07:29 04/15/25 19:59 5 MG Ondansetron HCl (zoFRAN 4MG INJ) 4 mg Q6H PRN IVP NAUSEA/VOMITING 04/14/25 23:30 05/14/25 23:29 04/15/25 22:07 4 MG Pantoprazole Sodium (PROTonix 40MG TAB) 40 mg DAILY PO 04/15/25 09:00 05/15/25 08:59 04/15/25 08:37 40 MG Piperacillin Sod/ Tazobactam Sod (Zosyn 3.375gm+NS 50ml) 3.375 gm Q12H IVPB 04/15/25 16:30 04/25/25 16:29 04/16/25 03:56 3.375 GM Polyethylene Glycol (MIRalax 3350 17 GM POWD.PACK) 17 gm DAILY PO 04/15/25 09:00 05/15/25 08:59 04/15/25 07:35 17 GM Sodium Chloride 1,000 ml @ 100 mls/hr Q10H IV 04/16/25 09:30 04/16/25 09:28 DC Sodium Chloride (NS 50ml) 50 ml AD IV 04/15/25 16:30 04/15/25 16:31 DC Temazepam (restORIL 15 MG CAP) 15 mg HS PRN PO INSOMNIA/SLEEP 04/14/25 23:30 05/14/25 23:29 04/15/25 22:07 15 MG Diagnostics / Radiology: [COPY/PASTE HERE IF NO REPORTS PLEASE DELETE SECTION] Assessment: Abnormal imaging in stomach concerning for trichobezoar Plan: EGD in [facility] Apr 16, 2025 12:59
[2025-04-17] VITALS (13 sets, daily range): BP systolic 98–146; BP diastolic 58–84; PULSE 67–88; RESP 14–20; TEMP 97–98.5; O2SAT 98–100
[2025-04-17 04:03] LABS: NUCLEATED RED BLOOD CELLS 0.0 % (0.0-0.19); PLATELET COUNT (AUTO) 218.0 K/uL (130-400); RED BLOOD CELL COUNT(AUTO) 2.69 MIL/uL (4.00-5.50); RED CELL DISTRIBUTION WIDTH 12.7 % (11.0-15.5); WHITE BLOOD COUNT (AUTO) 5.6 K/uL (4.8-10.8)
[2025-04-17 04:20] LABS: ASPARTATE AMINOTRANSFERASE 13.0 U/L (10-37); CREATININE 2.5 mg/dL (0.5-1.0); GLOMERULAR FILTR. RATE CALC 25.0 mL/min (>90); GLUCOSE,RANDOM 64.0 mg/dL (70-105); SODIUM SERUM 139.0 mmol/L (136-145); TOTAL PROTEIN, SERUM 6.3 g/dL (6.0-8.3); UREA NITROGEN, BLOOD 26.0 mg/dL (7-18)
[2025-04-17] MEDS ORDERED: PHARMACY COMMUNICATION MISC ONE (04:30)
[2025-04-17] MEDS ORDERED: LIDOCAINE HCL 400MG/20ML VIAL ONE (11:13)
[2025-04-17] MEDS ORDERED: PANT40TA54 PO (13:05)
[2025-04-17] MEDS ORDERED: CEPH500C2 PO (13:05)
--- NOTE | 2025-04-17 13:13 | DS ---
[facility] DISCHARGE SUMMARY Date Patient Seen: Apr 17, 2025 Time of Visit: 13:06 Supervising Physician: Dr. Bandar Barnes Primary Care Physician: David Barnes PROBLEM LIST: Acute complicated cystitis failed outpatient treatment, discharge with antibiotics Intraluminal gastric mass suspicious for Trichobezoar EGD done04/17/25 normal Angina pectoris, resolved Hyperkalemia, resolved Dm type 2, with hyperglycemia, POA Chronic kidney disease, POA Gastroparesis, POA Intractable abdominal pain associated with nausea / vomiting, resolved Marijuana use, POA HPI (per admitting provider) This is a 34-year-old female with past medical history of DM type 2, gastroparesis, hypertension, CKD, marijuana use who presented to ED via EMS with complaint of chest pain that started earlier today. There is no associated lightheadedness, palpitation, confusion, or nausea or vomiting. In ED initial CBC showed chronic anemia, chemistry consistent with chronic kidney disease, with elevated potassium level of 5.4. Initial EKG done in ED showed no STEMI, her troponin level was also normal, chest x-ray unrevealing for any acute intrapulmonary process. At present patient is currently hemodynamically stable, on room air with appropriate oxygen saturation, not in acute respiratory distress, able to answer questions appropriately, denies any headache, chest pain, shortness of breath, fever, cough, diarrhea, difficulty urinating, burning sensation. Only complains of on and off mild abdominal pain. Patient also smokes marijuana daily, patient says that she's doing at for " pain control." HOSPITAL COURSE: Patient was admitted for chest pain, upon admission troponin levels normal 8, 10, 10. Patient also complained of abdominal pain due to history of gastroparesis with nausea and vomiting patient on ondansetron and bentyl at home. UA +for nitrates, hematuria, and WBC as per patient she has had a this for some time and has been given oral antibiotics, she was placed on IV Zosyn in hospital. CT abdomen was ordered showing intraluminal gastric mass-like material described as suspicious for trichobezoar, GI was consulted and EGD ordered. Today patient assessed at bedside. She states shes feeling better. She is awake, alert, and oriented x 4. Denies fever, nausea, vomiting, shortness of breath, chest pain, or any abdominal discomforts. She just returned from having EGD. EGD report shows normal esophagus, normal bulb and second portion of the duodenum, the examination otherwise was normal. Patient started on clear liquids and order for Protonix placed for home. Patient will also be started on Cephalexin oral antibiotic for 7 days. As per bedside nurse no acute findings. VS stable, patient is stable to be discharged home. PLAN: Continue PO Antibiotic, Cephalexin sent to pharmacy Clear liquid diet advance as tolerated, renal diet Start Pantoprazole oral, prescription sent to pharmacy Continue antiemetics at home Up ad natalie New Medications: Cephalexin (Cephalexin) 500 Mg Capsule 1 CAP PO TID for 7 Days, #21 CAP 0 Refills Pantoprazole Sodium (Pantoprazole Sodium) 40 Mg Tablet.dr 1 TAB PO DAILY for 30 Days, #30 TAB 0 Refills Continued Medications: Dicyclomine HCl (Bentyl) 20 Mg Tab 20 MG PO Q6HPRN PRN for ABDOMINAL CRAMPS, #30 TAB Ondansetron (Ondansetron Odt) 4 Mg Tab.rapdis 4 MG PO Q6HPRN PRN for nausea, #16 TAB 0 Refills Discontinued Medications: Cephalexin (Cephalexin) 500 Mg Capsule 1 CAP PO BID for 10 Days, #20 CAP 0 Refills Dicyclomine HCl (Bentyl) 20 Mg Tab 1 TAB PO BID for irritable bowel symptoms for 10 Days, #20 TAB 0 Refills Metoclopramide HCl (Metoclopramide HCl) 5 Mg Tablet 5 MG PO TIDAC, TAB Nitrofurantoin/Nitrofuran Mac (Macrobid) 100 Mg Cap 1 CAP PO BID for 7 Days, #14 CAP 0 Refills Ondansetron (Ondansetron Odt) 4 Mg Tab.rapdis 4 MG PO Q6HPRN PRN for nausea, #16 TAB 0 Refills Ondansetron (Ondansetron Odt) 4 Mg Tab.rapdis 4 MG PO BID for vomiting for 5 Days, #10 TAB PHYSICAL EXAM: GENERAL: alert, weak, awake oriented x 3 HEENT: EOMI, Sclera non icteric, moist mucosa NECK: Supple, no JVD, trachea midline LUNGS: Clear breath sounds bilaterally. No wheezes HEART: Regular rate and rhythm. Normal S1 and S2, without murmurs ABD: Some tenderness on palpation EXT: No clubbing cyanosis or edema NEURO: Alert and oriented to person, follows commands FOLLOW-UP: Follow-up with PCP in 3-5 days RECOMMENDATIONS: See Discharge Instructions This case was seen and discussed with my supervising physician. More than 30 minutes spent on discharge process, including evaluation of the patient, discussion with nursing staff, medication reconciliation and follow-up appointments MICHAEL MADERA APRN Apr 17, 2025 13:12
--- NOTE | 2025-04-17 13:43 | NUR ---
DC INSTRUCTIONS PROVIDED TO PATIENT ,PATIENT VERBALIZED UNDERSTANDING
== END 2025-04-17 13:40 | disposition home or self-care (01) ==
LOC: EDH 18:09 → EDHIP 18:10 → INTOOBSV 18:10 → 4CH 04-15 11:00
PROVIDERS: ADMIT Internal Medicine Pulmonary Disease; ATTEND Internal Medicine Pulmonary Disease
DX: K22.89 Other specified disease of esophagus (principal); K29.70 Gastritis, unspecified, without bleeding; R93.3 Abnormal findings on diagnostic imaging of other parts of digestive tract; N30.01 Acute cystitis with hematuria; I12.9 Hypertensive chronic kidney disease with stage 1 through stage 4 chronic kidney disease, or unspecified chronic kidney disease; E11.22 Type 2 diabetes mellitus with diabetic chronic kidney disease; E11.65 Type 2 diabetes mellitus with hyperglycemia; E87.5 Hyperkalemia; F12.20 Cannabis dependence, uncomplicated; E11.43 Type 2 diabetes mellitus with diabetic autonomic (poly)neuropathy; D63.1 Anemia in chronic kidney disease; N18.9 Chronic kidney disease, unspecified; K31.84 Gastroparesis; R11.2 Nausea with vomiting, unspecified; Z79.899 Other long term (current) drug therapy; Z98.890 Other specified postprocedural states
CPT/HCPCS: 96376 ×3; 96361; 96375 ×4; 99285; 80076; 83735 ×2; 84484 ×3; 80048 ×3; 84703; 85025 ×2; 87086 ×2; 87186; 81001; 36415 ×4; 71045; 93005; 96372 ×2; 96365; 96367; 84100; 82948 ×14; 74176; 96366 ×2; 96368; 80053 ×2; 85027 ×2; 94640; 88305; 88312; 43239; J7040; J7030 ×2; J2405 ×4; J1171 ×3; G0378 ×49; J0696; J2543 ×4; J1644 ×4; J7070 ×5; J0612; J3490; J2704; A4620; A4215; A4223; A4222; A4606; 96374